=== PATIENT | female | born 1980 | race Caucasian/White ===

== ENCOUNTER 2022-09-19 13:06 | Observation (INO) ==
--- NOTE | 2022-09-19 13:12 | Emergency Department Note ---
ED Provider Note History of Present Illness Chief Complaint: Dehydration Stated Complaint: NOT EATING OR DRINKING A LOT Time Seen by Provider: 09/19/22 13:10 This is a 41-year-old female with a history of anxiety and paranoia, currently i npatient psych at the [facility]. She was referred to the emergency department via EMS for rehydration. According to case management who spoke with the provider at the [facility], the patient has not been eating or drinking very much over the past 2 weeks. She has lost about 10 pounds within the past 2 weeks. In the room, the patient is stating that she is very thirsty and she is asking for bottled water to drink. She admits that she is very paranoid that there is rat poison in the water at the [facility]. She is asking staff to drink a little bit of her bottled water to convince herself that it is not poisoned. She admits to not eating or drinking very much recently. Review of systems is challenging to obtain due to patient's baseline mental status at this time. Per case management, the patient is currently a 201, voluntary admission at the [facility]. Home Medications Medication Instructions Recorded Confirmed Type acetaminophen 325 mg tablet 650 mg PO Q6 PRN Pain 09/08/22 09/19/22 History (Tylenol) albuterol sulfate 90 mcg/actuation 2 puff inhalation Q4H PRN 09/08/22 09/19/22 History aerosol inhaler Shortness Of Breath buspirone 5 mg tablet 5 mg PO TID 09/08/22 09/19/22 History epinephrine 0.3 mg/0.3 mL 0.3 ml IM BID PRN severe food egg 09/08/22 09/19/22 History injection, auto-injector allergy food supplemt, lactose-reduced 1 ea PO TID 09/08/22 09/19/22 History (Ensure oral liquid) montelukast 10 mg tablet 10 mg PO HS 09/08/22 09/19/22 History sennosides 8.6 mg tablet (senna) 8.6 mg PO HS PRN Constipation 09/08/22 09/19/22 History tiotropium bromide 1.25 1.25 mcg inhalation DAILY 09/08/22 09/19/22 History mcg/actuation mist for inhalation (Spiriva Respimat) trazodone 50 mg tablet 50 mg PO HS 09/08/22 09/19/22 History venlafaxine 75 mg capsule,extended 75 mg PO QAM 09/08/22 09/19/22 History release 24 hr zinc oxide 20 % topical ointment 1 applic topical BID 09/19/22 09/19/22 History Allergies Allergy/AdvReac Type Severity Reaction Status Date / Time bee venom protein (honey bee) Allergy Severe SEVERE Verified 09/19/22 15:50 SWELLING AT [place] egg Allergy Severe Anaphylaxis Verified 09/19/22 15:50 methylprednisolone Allergy Unknown HIVES Verified 09/19/22 15:50 WHILE TAKING MEDROL DOSE PACK & ?? INHALER Past Med/Surg History Medical History (Updated 09/19/22 @ 23:58 by JESSICA Hurtado) Anxiety Depression Migraines Mild intermittent asthma Paranoia PCOS (polycystic ovarian syndrome) Surgical History No pertinent past surgical history Family History Mother Breast cancer Lung cancer Father Colorectal cancer Social History Smoking Status: Never smoker Do You Dip or Chew Tobacco: No; Hx Alcohol Use: No Hx Substance Use: No Preferred Language: Faroese Communication Ability: Effective Community Associate Required: No Beliefs That Will Affect Care: None Current Living Situation: Other Current Living Situation Comment: [place] Feels Safe at Home: No Is there a partner from a previous relationship who is making you feel unsafe now?: No Any Concerns about Your Family Situation: No Would You Like to Speak to Someone About Your Situation: No Safety Concerns: Afraid for Self Assistive Devices: None Physical Exam Vital Signs Vital Signs - 24 hr 09/19/22 13:20 09/19/22 13:25 09/19/22 16:22 Pulse Rate 101 H Pulse Rate [Finger] 103 H Respiratory Rate 20 20 Respiratory Effort / Characteristics Non-Labored Non-Labored Respiratory Depth Normal Normal Respiratory Pattern Regular Blood Pressure 114/85 Blood Pressure [Right Arm] 121/80 Blood Pressure Mean 94 Blood Pressure Mean [Right Arm] 93 Blood Pressure Position Sitting Pulse Oximetry 99 100 Oxygen Delivery Method Room Air Room Air Sepsis Recent Fever Within 48 Hours No Sepsis New/Unexplained Change in Mental Status N/A Sepsis Action Taken by Nursing No Action Required CONSTITUTIONAL: Well developed, well nourished, in mild distress, concerned about being poisoned HEAD: Normocephalic, atraumatic. EYES: conjunctivae normal, extraocular muscles intact. No scleral icterus ENMT: External ears normal. Nose with normal external appearance, no congestion. Oral mucous membranes dry. Oropharynx otherwise normal. NECK: Full active range of motion. LYMPHATIC: No cervical adenopathy RESPIRATORY: Breathing unlabored and symmetric. Lungs clear to auscultation bilaterally. No wheeze, rales, or rhonchi. CARDIOVASCULAR: Regular rate and rhythm. No murmurs, rubs, or gallops. ABDOMEN: Normal bowel sounds. Soft, nontender, no peritonitis. No masses. No CVA tenderness bilaterally. MUSCULOSKELETAL: Moves all extremities at all joints without pain or difficulty. No cyanosis or edema. Back with full range of motion. SKIN: [place], warm, dry. No obvious rash NEUROLOGIC: Awake, alert, oriented. Gaze is conjugate. Face symmetric, speech normal. Moves head and all four extremities spontaneously. Sensation and strength grossly intact. PSYCHIATRIC: Paranoid and delusional Course Consultations Consultation #1: I spoke with MANOLO Romero at the [facility] psych who is very familiar with the patient. She is currently coordinating with Dr. Johnson psychiatrist related to her care. Essentially the patient was sent to the emergency department for IV fluid rehydration as they do not have those capabilities. They have obtained labs on her and her symptoms are consistent with what brought her to inpatient psych in the first place. They are not concerned about this being medical related. She explained that if the patient demonstrates ongoing inability to care for herself/properly hydrate or nourish herself, she will be committed by Dr. Johnson. Administered Medications Buspirone HCl (Buspirone 5 Mg Tab) 5 mg PO TID [facility] Stop: 10/19/22 20:59 Last Admin: 09/19/22 21:07 Dose: 5 mg Documented By: GCB Potassium Chloride/Sodium Chloride (1/2 Nss + 20meq Kcl 1000ml) 20 meq in 1,000 mls @ 100 mls/hr IV .Q10H ONE; Protocol Stop: 09/20/22 05:29 Last Admin: 09/19/22 19:53 Dose: 100 mls/hr Documented By: ERIK Montelukast Sodium (Montelukast Sodium 10 Mg Tablet) 10 mg PO HS MARCIO Stop: 10/19/22 20:59 Last Admin: 09/19/22 21:07 Dose: 10 mg Documented By: GCTayler Discontinued Medications Albuterol (Albut/Ipratrop 3mg/0.5mg Neb 3 Ml Vial) 3 ml NEB Q4R PRN; Protocol PRN Reason: Shortness Of Breath Stop: 10/19/22 18:59 Last Admin: 09/19/22 20:23 Dose: 3 ml Documented By: ALLISON Sodium Chloride (Nss 1000ml) 1,000 mls @ 999 mls/hr IV .Q1H1M ONE Stop: 09/19/22 14:24 Last Infusion: 09/19/22 14:30 Dose: 0 mls/hr Documented By: Admin: 09/19/22 13:30 Dose: 999 mls/hr Documented By: HALLEY Sodium Chloride (Nss 1000ml) 1,000 mls @ 999 mls/hr IV .Q1H1M ONE Stop: 09/19/22 15:16 Last Infusion: 09/19/22 16:37 Dose: 0 mls/hr Documented By: Admin: 09/19/22 14:30 Dose: 999 mls/hr Documented By: HALLEY Potassium Chloride (K Shant / Wtr) 10 meq in 100 mls @ 100 mls/hr IV Q1H MARCIO; Protocol Stop: 09/19/22 16:59 Last Infusion: 09/19/22 17:50 Dose: 0 mls/hr Documented By: Admin: 09/19/22 16:37 Dose: 100 mls/hr Documented By: Infusion: 09/19/22 16:27 Dose: 100 mls/hr Documented By: Admin: 09/19/22 15:27 Dose: 100 mls/hr Documented By: MARI Potassium Chloride 20 meq/ (Dextrose) 1,010 mls @ 80 mls/hr IV .[id number] MARCIO Stop: 10/19/22 16:59 Last Infusion: 09/19/22 19:53 Dose: 0 mls/hr Documented By: Admin: 09/19/22 17:31 Dose: 80 mls/hr Documented By: AY Lorazepam (Lorazepam 2 Mg/1 Ml Vial) 1 mg IV NOW STA Stop: 09/19/22 15:00 Last Admin: 09/19/22 15:26 Dose: 1 mg Documented By: MARI Lorazepam (Lorazepam 2 Mg/1 Ml Vial) 1 mg IV PRN ONE Stop: 09/19/22 15:01 Last Admin: 09/19/22 17:31 Dose: Not Given Documented By: MARI Ondansetron HCl (Ondansetron Inj 2 Mg/Ml 2 Ml Vial) 4 mg IV NOW STA Stop: 09/19/22 13:39 Last Admin: 09/19/22 14:26 Dose: 4 mg Documented By: HALLEY Potassium Chloride (Potassium Chloride Crtab 20 Meq Tabcr) 40 meq PO NOW STA Stop: 09/19/22 16:42 Last Admin: 09/19/22 17:31 Dose: 40 meq Documented By: MARI Potassium Chloride (Potassium Chloride Pwd 20 Meq Pack) 40 meq PO NOW STA Stop: 09/19/22 19:33 Last Admin: 09/19/22 19:54 Dose: 40 meq Documented By: YAYOB Medical Decision Making Differential Diagnosis Paranoia, anxiety, delusional, gastroenteritis, gastroparesis, cholecystitis, cholelithiasis, choledocholithiasis, electrolyte imbalance, dehydration, UTI, malnutrition, anemia, GERD, pancreatitis, cardiac ischemia, among other p athology Medical Records Attestation: I reviewed the patient's medical records. (Patient seen in this emergency department on 09/08/2022 for some diffuse lower abdominal pain and nausea after eating. CT abdomen and pelvis was nondiagnostic at that time.) Laboratory Data 09/19/22 13:31 09/19/22 13:31 Lab Results 09/19/22 09/19/22 09/19/22 Range/Units : 13: 13:31 WBC 10.81 H (4.8-10.8) K/ul RBC 5.92 H (4.20-5.40) M/uL Hgb 17.6 H (12.0-16.0) g/dl Hct 52.2 H (37.0-47.0) % MCV 88.2 (80.0-100.0) fL MCH 29.7 (25.0-34.0) pg MCHC 33.7 (32.0-36.0) g/dL RDW Std Deviation 47.4 H (36.4-46.3) fL RDW Coeff of Vaughn 14.7 H (11.5-14.5) % Plt Count 303 (130-400) K/uL MPV 12.0 (9.4-12.4) fL Immature Gran % (Auto) 0.2 % Neut % (Auto) 80.4 % Lymph % (Auto) 10.3 % [place] % (Auto) 8.2 % Eos % (Auto) 0.2 % Baso % (Auto) 0.7 % Neut # (Auto) 8.69 H (1.40-6.50) K/uL Lymph # (Auto) 1.11 L (1.2-3.4) K/uL [place] # (Auto) 0.89 H (0.11-0.59) K/uL Eos # (Auto) 0.02 (0-0.50) K/uL Baso # (Auto) 0.08 (0-0.2) K/uL Immature Gran # (Auto) 0.02 (0.01-0.20) K/uL Sodium 149 H (136-145) mmol/L Potassium 2.7 L (3.5-5.1) mmol/L Chloride 110 H (98-107) mmol/L Carbon Dioxide 20 L (21-32) mmol/L Anion Gap 19 H (3-11) BUN 27 H (6-23) mg/dl Creatinine 0.84 (0.6-1.2) mg/dl Est Cr Clr Drug Dosing 77.2 ml/min Est GFR ( Amer) 100.1 ml/min Est GFR (Non-Af Amer) 86.3 ml/min BUN/Creatinine Ratio 32.1 H (10-20) Glucose 103 H (70-99(Fasting)) mg/dl Calcium 10.6 H (8.5-10.1) mg/dl Phosphorus 2.3 L (2.5-4.9) mg/dl Magnesium 2.1 (1.7-2.4) mg/dl Total Bilirubin 1.3 H (0.2-1.0) mg/dl AST 18 (13-39) U/L ALT 18 (7-52) U/L Alkaline Phosphatase 65 (34-104) U/L Troponin I High Sens 3.7 (0-14) pg/ml Total Protein 9.7 H (6.0-8.3) gm/dl Albumin 4.9 (3.4-5.0) gm/dl Globulin 4.8 H (2.5-4.0) gm/dl Albumin/Globulin Ratio 1.0 (0.9-2) Lipase 102 H (11-82) U/L Urine Color Urine Appearance (Clear) Urine pH (4.5-7.5) Ur Specific [place] (1.000-1.030) Urine Protein (Negative) Urine Glucose (UA) (Negative) Urine Ketones (Negative) Urine Blood (Negative) Urine Nitrite (Negative) Urine Bilirubin (Negative) Urine Urobilinogen (Negative) Ur Leukocyte Esterase (Negative) Urine WBC (Auto) (0-5) /hpf Urine RBC (Auto) (0-4) /hpf U Hyaline Cast (Auto) (0-5) /lpf U Epithel Cells (Auto) (0-5) /lpf Urine Bacteria (Auto) (Negative) Ur Renal Epithelial Cell Urine Crystals Calcium Oxalate Crystal (None Prsent) Urine Mucus (None Prsent) SARS-CoV-2, RNA, NAAT (NEGATIVE) 09/19/22 09/19/22 Range/Units 14:03 16:27 WBC (4.8-10.8) K/ul RBC (4.20-5.40) M/uL Hgb (12.0-16.0) g/dl Hct (37.0-47.0) % MCV (80.0-100.0) fL MCH (25.0-34.0) pg MCHC (32.0-36.0) g/dL RDW Std Deviation (36.4-46.3) fL RDW Coeff of Vaughn (11.5-14.5) % Plt Count (130-400) K/uL MPV (9.4-12.4) fL Immature Gran % (Auto) % Neut % (Auto) % Lymph % (Auto) % [place] % (Auto) % Eos % (Auto) % Baso % (Auto) % Neut # (Auto) (1.40-6.50) K/uL Lymph # (Auto) (1.2-3.4) K/uL [place] # (Auto) (0.11-0.59) K/uL Eos # (Auto) (0-0.50) K/uL Baso # (Auto) (0-0.2) K/uL Immature Gran # (Auto) (0.01-0.20) K/uL Sodium (136-145) mmol/L Potassium (3.5-5.1) mmol/L Chloride (98-107) mmol/L Carbon Dioxide (21-32) mmol/L Anion Gap (3-11) BUN (6-23) mg/dl Creatinine (0.6-1.2) mg/dl Est Cr Clr Drug Dosing ml/min Est GFR ( Amer) ml/min Est GFR (Non-Af Amer) ml/min BUN/Creatinine Ratio (10-20) Glucose (70-99(Fasting)) mg/dl Calcium (8.5-10.1) mg/dl Phosphorus (2.5-4.9) mg/dl Magnesium (1.7-2.4) mg/dl Total Bilirubin (0.2-1.0) mg/dl AST (13-39) U/L ALT (7-52) U/L Alkaline Phosphatase (34-104) U/L Troponin I High Sens (0-14) pg/ml Total Protein (6.0-8.3) gm/dl Albumin (3.4-5.0) gm/dl Globulin (2.5-4.0) gm/dl Albumin/Globulin Ratio (0.9-2) Lipase (11-82) U/L Urine Color Dark Yellow Urine Appearance Cloudy A (Clear) Urine pH 5.5 (4.5-7.5) Ur Specific [place] 1.033 H (1.000-1.030) Urine Protein 2+ H (Negative) Urine Glucose (UA) Negative (Negative) Urine Ketones 4+ H (Negative) Urine Blood Negative (Negative) Urine Nitrite Positive A (Negative) Urine Bilirubin 2+ H (Negative) Urine Urobilinogen Negative (Negative) Ur Leukocyte Esterase Trace H (Negative) Urine WBC (Auto) 10-30 H (0-5) /hpf Urine RBC (Auto) 0-4 (0-4) /hpf U Hyaline Cast (Auto) 1-5 (0-5) /lpf U Epithel Cells (Auto) >30 H (0-5) /lpf Urine Bacteria (Auto) 1+ H (Negative) Ur Renal Epithelial Cell Not Reportable Urine Crystals Not Reportable Calcium Oxalate Crystal Present A (None Prsent) Urine Mucus Present A (None Prsent) SARS-CoV-2, RNA, NAAT NEGATIVE (NEGATIVE) ECG Data Attestation: I personally reviewed and interpreted this ECG as follows: (Sinus rhythm with a rate of 70. Intervals within normal limits. No acute ST elevation or evidence of ischemia.) MDM Narrative 41-year-old female was referred to the emergency department from the [facility] facility for rehydration secondary to not eating or drinking much over the past few weeks. Patient is reportedly paranoid that she is being poisoned by the water at that facility, and she allegedly gags and feels nauseous when she tries to eat. On initial evaluation, the patient is in mild distress, very anxious and paranoid concerned that the water at the hospital is paranoid though she admits she is very thirsty. She does drink some bottled water after asking staff to confirm it is not poisoned by drinking it themselves. She does not gag or vomit after drinking water. Her abdominal exam is reassuring. Oral mucous membranes are dry, she does appear to be dehydrated. I discussed the referral with Anjelica, case loader operator. I also spoke with Nick FRENCH at inpatient psych at the [facility] as described above in the consultation section. Essentially the patient was sent to the emergency department for IV fluid rehydration, they do not think this is medical, and this has been ongoing. If the patient continues to demonstrate inability to properly hydrate or nourish herself, she will be committed by the psychiatrist at the [facility]. Patient was agreeable with an IV and she received 2 L IV fluids initially. Her labs demonstrate a mild leukocytosis at 10.8, evidence of hemoconcentration with a hemoglobin of 17.6 compared from 13.1 on 09/08. She is hyponatremic at 149, hypokalemic at 2.7. Initially administered a total of 20 mEq IV potassium. No cardiac arrhythmias appreciated on ECG. Magnesium normal 2.1. Urine with evidence of contamination and infection, this was identified after the patient had been admitted. Hospitalist group aware. No evidence of acute kidney injury. Anion gap elevated at 19. Case was discussed with ED attending Dr. Velasquez. We felt that admission to the hospital was prudent given her multiple electrolyte abnormalities and starvation ketosis state, especially with her reluctance to take p.o. at the [place]. Case was discussed with the [facility] Hospitalist team who agrees to admit the patient for further management. Impression Hypernatremia, Hypokalemia, Paranoia, Starvation ketoacidosis, Dehydration Discharge Plan Visit Data Chief Complaint: Dehydration Stated Complaint: NOT EATING OR DRINKING A LOT ED Provider: Bashir Velasquez ED Midlevel Provider: Anand Graham Discharge Problem: Hypernatremia, Hypokalemia, Paranoia, Starvation ketoacidosis, Dehydration Patient Disposition: Admitted As Inpatient Discharge Instructions Interventions: ED Discharge Assessment Last Done: 09/19/22 18:25
[2022-09-19] MEDS ORDERED: SODIUM CHLORIDE 0.9% 1000ML 1,000 ML IV ONE ×2 (13:24→14:16)
[2022-09-19] MEDS ORDERED: ONDANSETRON INJ 2 MG/ML 2 ML VIAL IV STA (13:38)
[2022-09-19 13:48] LABS: Basophils # (auto) 0.08 K/uL (0-0.2); Basophils % (auto) 0.7 %; Eosinophils # (auto) 0.02 K/uL (0-0.50); Eosinophils % (auto) 0.2 %; Hematocrit (blood only) 52.2 % (37.0-47.0); Hemoglobin 17.6 g/dl (12.0-16.0); Immature Granulocytes # (auto) 0.02 K/uL (0.01-0.20); Immature Granulocytes % (auto) 0.2 %; Lymphocytes # (auto) 1.11 K/uL (1.2-3.4); Lymphocytes % (auto) 10.3 %; Mean Corpuscular Hemoglobin 29.7 pg (25.0-34.0); Mean Corpuscular Hgb Conc 33.7 g/dL (32.0-36.0); Mean Corpuscular Volume 88.2 fL (80.0-100.0); Monocytes # (auto) 0.89 K/uL (0.11-0.59); Monocytes % (auto) 8.2 %; Neutrophils # (auto) 8.69 K/uL (1.40-6.50); Neutrophils % (auto) 80.4 %; Platelet Count 303 K/uL (130-400); RDW Coefficient of Variation 14.7 % (11.5-14.5); RDW Standard Deviation 47.4 fL (36.4-46.3); Red Blood Count 5.92 M/uL (4.20-5.40); White Blood Count 10.81 K/ul (4.8-10.8)
[2022-09-19 14:14] LABS: Troponin I High Sensitivity 3.7 pg/ml (0-14)
[2022-09-19 14:41] LABS: Albumin Level 4.9 gm/dl (3.4-5.0); Bilirubin,Total 1.3 mg/dl (0.2-1.0); Calcium 10.6 mg/dl (8.5-10.1); Potassium 2.7 mmol/L (3.5-5.1)
[2022-09-19 14:47] LABS: BUN Creatinine Ratio 32.1 (10-20); Creatinine Clr Calc Pharmacy 77.2 ml/min; Est GFR (African American) 100.1 ml/min; Est GFR (Non-African American) 86.3 ml/min; Globulin 4.8 gm/dl (2.5-4.0); Total Protein 9.7 gm/dl (6.0-8.3)
[2022-09-19] MEDS ORDERED: LORazepam 2 MG/1 ML VIAL IV STA (14:59)
[2022-09-19] MEDS ORDERED: LORazepam 2 MG/1 ML VIAL IV ONE (15:00)
[2022-09-19] MEDS: POTASSIUM CHLORIDE / WTR 10 MEQ/100 ML PLCT IV SCH ×2 (15:27→16:37)
--- NOTE | 2022-09-19 15:46 | History & Physical Report ---
Date of Service September 19, 2022 Assessment & Plan (1) Starvation ketoacidosis: Plan: This is a 41 y/o female with a PMH of PCOS, asthma, IBS, depression, anxiety, and recent paranoia who presented to the ED from [place] with dehydration and electrolyte abnormalities related to refusal to eat or drink water due to underlying paranoia that someone is trying to poison her ([facility] staff, her family). Per outpatient records, hx of anxiety and depression but no documentation of prior psychosis until recent symptoms, which seemed to start after COVID in May. - Admit to med surg for IV hydration and correction of electrolytes - IVF with D5 with 20 mEq KCl/bag at 80 cc/hr - Oral KCl ordered to help supplement for hypokalemia - Encourage oral intake as able - full liquid diet, add nutritional supplement such as Boost per performance improvement specialist recs - Check Phos this afternoon, mag pending - Labs in AM including BMP, Mg, Phos, B12, folic acid, and vit D level - Abnormal UA but no significant symptoms - wait on culture - Consult psychiatry while admitted - pt unhappy at [place] and wants another opinion on her condition and medications (2) Hypernatremia: (3) Hypokalemia: (4) Paranoia: Plan Pt seen and evaluated with attending physician, Dr. Berger. Plan of care discussed and as outlined above. Code Status: Full Code DVT Prophylaxis: pt ambulatory at present, if not being discharged tomorrow, consider adding Lovenox Delfin Heath PA-C History of Present Illness Chief Complaint: Dehydration Primary Care Provider: Mela Dawkins This is a 41 y/o female with a PMH of asthma, PCOS, migraines, anxiety, depression, and recent paranoia who presents to the ED today from [place], where she is currently inpatient due to acute paranoia, for dehydration. History obtained from the patient but also from her medical records from [facility] and from [place] as it is unclear how reliable pt is as a historian. Per the notes, she presented to the ED on 09/05/22, brought by her aunt, with paranoia and abdominal pain. Per patient, she has been having ongoing issues with lower abdominal pain and getting short of breath with eating for the last few months. Symptoms seemed to start after having COVID in May. Pt reports that work-up at other facilities has been negative. She feels like she will get flushed, short of breath, and sometimes will have palpitations when she eats, particularly solid foods. Initially, she reports that she was tolerating liquids, including Ensure, but that her symptoms worsened which was why her aunt brought her to the ER. She is also concerned that the staff at [facility] are trying to poison her so she has been refusing to eat for the last several days. In the ED, she expressed similar concerns and has been extremely hesitant to even drink the bottled water provided by the ED staff. She repeated asked us if her water was safe to drink or if it was poison. Per [place], pt has been intermittently taking her medications, may refuse to take specific ones. Pt reports that she does not think that she needs the Effexor so she often isn't taking. She is willing to consider the BuSpar. It appears that the Risperdal was discontinued a few days ago. She also does not think that she needs the trazodone as she thinks she is sleeping fine. She reports that she has asked for a liquid diet repeatedly at [facility] but keeps getting regular food "like cheeseburgers" which don't agree with her. Records from [place] reveal that she has been ordered a regular diet as well as the specific foods like pudding and applesauce that she has been asking for but notes that she continues to refuse oral intake. She is currently admitted on a 201 but the psychiatric provider stated that a 302 may need to be filed if she continues to refuse nutrition and hydration. Pt specifically denies suicidal ideations, homicidal ideations, or intent of self-harm. Her urine in the ED was noted to have +nitrites, ketones, trace leuks. Pt was apparently recently treated for a UTI but she is unsure with what. She states that her urine has been strong but she denies urinary frequency, hematuria, or dysuria. She reports no recent BM but is passing gas. Stomach feels "quivery" at times. Allergies Allergy/AdvReac Type Severity Reaction Status Date / Time bee venom protein (honey bee) Allergy Severe SEVERE Verified 09/19/22 15:50 SWELLING AT [place] egg Allergy Severe Anaphylaxis Verified 09/19/22 15:50 methylprednisolone Allergy Unknown HIVES Verified 09/19/22 15:50 WHILE TAKING MEDROL DOSE PACK & ?? INHALER Home Medications Medication Instructions Recorded Confirmed Type acetaminophen 325 mg tablet 650 mg PO Q6 PRN Pain 09/08/22 09/19/22 History (Tylenol) albuterol sulfate 90 mcg/actuation 2 puff inhalation Q4H PRN 09/08/22 09/19/22 History aerosol inhaler Shortness Of Breath buspirone 5 mg tablet 5 mg PO TID 09/08/22 09/19/22 History epinephrine 0.3 mg/0.3 mL 0.3 ml IM BID PRN severe food egg 09/08/22 09/19/22 History injection, auto-injector allergy food supplemt, lactose-reduced 1 ea PO TID 09/08/22 09/19/22 History (Ensure oral liquid) montelukast 10 mg tablet 10 mg PO HS 09/08/22 09/19/22 History sennosides 8.6 mg tablet (senna) 8.6 mg PO HS PRN Constipation 09/08/22 09/19/22 History tiotropium bromide 1.25 1.25 mcg inhalation DAILY 09/08/22 09/19/22 History mcg/actuation mist for inhalation (Spiriva Respimat) trazodone 50 mg tablet 50 mg PO HS 09/08/22 09/19/22 History venlafaxine 75 mg capsule,extended 75 mg PO QAM 09/08/22 09/19/22 History release 24 hr zinc oxide 20 % topical ointment 1 applic topical BID 09/19/22 09/19/22 History Past Med/Surg History Medical History Anxiety Depression Migraines Mild intermittent asthma Paranoia PCOS (polycystic ovarian syndrome) Surgical History No pertinent past surgical history Family History Mother Breast cancer Lung cancer Father Colorectal cancer Social History Smoking Status: Never smoker Do You Dip or Chew Tobacco: No; Hx Alcohol Use: No Hx Substance Use: No Preferred Language: Singaporean Communication Ability: Effective Tube Fitter Required: No Beliefs That Will Affect Care: None Current Living Situation: Other Current Living Situation Comment: [place] Feels Safe at Home: No Is there a partner from a previous relationship who is making you feel unsafe now?: No Any Concerns about Your Family Situation: No Would You Like to Speak to Someone About Your Situation: No Safety Concerns: Afraid for Self Assistive Devices: None Review of Systems Review of Systems: Limited due to mental health condition - see HPI Physical Exam Constitutional: well developed and well nourished; no acute distress Eyes: + anicteric sclerae ENMT: dry oral mucosa Neck: trachea midline Respiratory: no respiratory distress and no labored breathing Auscultation: lungs clear to auscultation bilaterally; no rales, no rhonchi and no wheezes Cardiovascular: Rate/Rhythm: regular rhythm and + tachycardic Vessels: radial pulses present Extremities: normal capillary refill; no pedal edema Gastrointestinal (Abdomen): Inspection/Auscultation: normal bowel sounds; abdomen not distended Percussion/Palpation: abdomen soft; abdomen nontender Musculoskeletal: Head/Neck/Chest: normocephalic, head atraumatic and neck supple Skin: no jaundice No decreased skin turgor Neurologic: moves all extremities; no focal motor deficits Psychiatric: Orientation: alert and oriented x 3 Eye Contact: + fair eye contact Motor Behavior: no abnormal motor movements Affect: + anxious affect Mood: + anxious mood Thought Process: + perseveration Thought Content: + paranoid Results & Data Results & Data ([facility]) Vital Signs (Past 12 Hours) Vital Signs Pulse Resp BP Pulse Ox O2 Del Method 09/19/22 13:25 Room Air 09/19/22 13:20 101 H 20 114/85 99 Room Air Laboratory Results Laboratory Results - last 24 hr 09/19/22 09/19/22 09/19/22 13:31 13:31 13:31 WBC 10.81 H RBC 5.92 H Hgb 17.6 H Hct 52.2 H MCV 88.2 MCH 29.7 MCHC 33.7 RDW Std Deviation 47.4 H RDW Coeff of Vaughn 14.7 H Plt Count 303 MPV 12.0 Immature Gran % (Auto) 0.2 Neut % (Auto) 80.4 Lymph % (Auto) 10.3 Kay % (Auto) 8.2 Eos % (Auto) 0.2 Baso % (Auto) 0.7 Neut # (Auto) 8.69 H Lymph # (Auto) 1.11 L Kay # (Auto) 0.89 H Eos # (Auto) 0.02 Baso # (Auto) 0.08 Immature Gran # (Auto) 0.02 Sodium 149 H Potassium 2.7 L Chloride 110 H Carbon Dioxide 20 L Anion Gap 19 H BUN 27 H Creatinine 0.84 Est Cr Clr Drug Dosing 77.2 Est GFR ( Amer) 100.1 Est GFR (Non-Af Amer) 86.3 BUN/Creatinine Ratio 32.1 H Glucose 103 H Calcium 10.6 H Magnesium Pending Total Bilirubin 1.3 H AST 18 ALT 18 Alkaline Phosphatase 65 Troponin I High Sens 3.7 Total Protein 9.7 H Albumin 4.9 Globulin 4.8 H Albumin/Globulin Ratio 1.0 Lipase 102 H Urine Color Urine Appearance Urine pH Ur Specific [place] Urine Protein Urine Glucose (UA) Urine Ketones Urine Blood Urine Nitrite Urine Bilirubin Urine Urobilinogen Ur Leukocyte Esterase 09/19/22 14:03 WBC RBC Hgb Hct MCV MCH MCHC RDW Std Deviation RDW Coeff of Vaughn Plt Count MPV Immature Gran % (Auto) Neut % (Auto) Lymph % (Auto) Kay % (Auto) Eos % (Auto) Baso % (Auto) Neut # (Auto) Lymph # (Auto) Kay # (Auto) Eos # (Auto) Baso # (Auto) Immature Gran # (Auto) Sodium Potassium Chloride Carbon Dioxide Anion Gap BUN Creatinine Est Cr Clr Drug Dosing Est GFR ( Amer) Est GFR (Non-Af Amer) BUN/Creatinine Ratio Glucose Calcium Magnesium Total Bilirubin AST ALT Alkaline Phosphatase Troponin I High Sens Total Protein Albumin Globulin Albumin/Globulin Ratio Lipase Urine Color Pending Urine Appearance Pending Urine pH Pending Ur Specific [place] Pending Urine Protein Pending Urine Glucose (UA) Pending Urine Ketones Pending Urine Blood Pending Urine Nitrite Pending Urine Bilirubin Pending Urine Urobilinogen Pending Ur Leukocyte Esterase Pending Medications Administered Potassium Chloride (K Shant / Wtr) 10 meq in 100 mls @ 100 mls/hr IV Q1H MARCIO; Protocol Stop: 09/19/22 16:59 Last Admin: 09/19/22 15:27 Dose: 100 mls/hr Documented By: AY Discontinued Medications Sodium Chloride (Nss 1000ml) 1,000 mls @ 999 mls/hr IV .Q1H1M ONE Stop: 09/19/22 14:24 Last Infusion: 09/19/22 14:30 Dose: 0 mls/hr Documented By: Admin: 09/19/22 13:30 Dose: 999 mls/hr Documented By: HALLEY Sodium Chloride (Nss 1000ml) 1,000 mls @ 999 mls/hr IV .Q1H1M ONE Stop: 09/19/22 15:16 Last Admin: 09/19/22 14:30 Dose: 999 mls/hr Documented By: HALLEY Lorazepam (Lorazepam 2 Mg/1 Ml Vial) 1 mg IV NOW STA Stop: 09/19/22 15:00 Last Admin: 09/19/22 15:26 Dose: 1 mg Documented By: MARI Ondansetron HCl (Ondansetron Inj 2 Mg/Ml 2 Ml Vial) 4 mg IV NOW STA Stop: 09/19/22 13:39 Last Admin: 09/19/22 14:26 Dose: 4 mg Documented By: HALLEY Supervising Physician Co-Signing Physician Notes Patient seen and examined independently. Discussed with Peggy Heath PA-C Patient presents from [facility] with paranoia, hyponatremia, starvation ketosis and hypokalemia. Started supportive care with D5 with potassium supplement. Initiate full liquid diet as patient is agreeable to that. Monitor BMP tomorrow AM.
[2022-09-19 15:47] LABS: Appearance Urine Cloudy (Clear); Blood Urine Negative (Negative); Color Urine Dark Yellow; Epithelial Cell Urine Auto >30 /lpf (0-5); Glucose Urine UA Negative (Negative); Ketones Urine 4+ (Negative); Leukocyte Esterase Urine Trace (Negative); Nitrite Urine Positive (Negative); Protein Urine 2+ (Negative); Specific Gravity Urine 1.033 (1.000-1.030); Urobilinogen Urine Negative (Negative); pH Urine 5.5 (4.5-7.5)
[2022-09-19 15:48] LABS: Magnesium 2.1 mg/dl (1.7-2.4)
[2022-09-19 15:49] LABS: Bilirubin Urine 2+ (Negative)
[2022-09-19 16:09] LABS: Calcium Oxalate Crystals Urine Present (None Prsent); Mucus Urine Present (None Prsent); RBC Urine Automated 0-4 /hpf (0-4)
[2022-09-19 16:10] LABS: Bacteria Urine Automated 1+ (Negative)
[2022-09-19] MEDS ORDERED: POTASSIUM CHLORIDE CRTAB 20 MEQ TABCR PO STA (16:41)
[2022-09-19] MEDS ORDERED: POTASSIUM CHLORIDE 20 MEQ in DEXTROSE 5% 1,000 ML IV SCH (17:00)
[2022-09-19 17:21] LABS: Phosphorus 2.3 mg/dl (2.5-4.9)
[2022-09-19] MEDS ORDERED: ALBUT/IPRATROP 3MG/0.5MG NEB 3 ML VIAL NEB PRN (19:00)
[2022-09-19] MEDS ORDERED: SODIUM CHLOR 0.45% + 20MEQ KCL 20 MEQ/1,000 ML BAG IV ONE (19:30)
[2022-09-19] MEDS ORDERED: POTASSIUM CHLORIDE PWD 20 MEQ PACK PO STA (19:32)
[2022-09-19 20:21] LABS: Base Excess VBG -0.8 mEq/L; HCO3 VBG 24 mmol/L; Oxygen Saturation VBG < 60.0 %; PCO2 VBG 37 mmHg (38-50); PO2 VBG 12 mmHg; pH VBG 7.41 (7.36-7.41)
[2022-09-19 20:51] LABS: BUN Creatinine Ratio 31.7 (10-20); Calcium 8.7 mg/dl (8.5-10.1); Est GFR (African American) 129.1 ml/min; Est GFR (Non-African American) 111.4 ml/min; Potassium 3.5 mmol/L (3.5-5.1)
[2022-09-19] MEDS ORDERED: traZODone HCL 50 MG TAB PO SCH (21:00)
[2022-09-19] MEDS: MONTELUKAST SODIUM 10 MG TABLET PO SCH (21:07)
[2022-09-19] MEDS: busPIRone 5 MG TAB PO SCH (21:07)
[2022-09-20] MEDS ORDERED: Flu Vaccine (Flucelvax) 0.5mL SYR **Egg-Free IM ONE (03:15)
[2022-09-20] MEDS: LEVALBUTEROL TARTRATE 15 GM HFA.AER.AD INH PRN ×4 (07:46→19:25)
[2022-09-20 08:15] LABS: Calcium 8.4 mg/dl (8.5-10.1); Creatinine Clr Calc Pharmacy 122.4 ml/min; Est GFR (African American) 136.7 ml/min; Est GFR (Non-African American) 117.9 ml/min; Magnesium 1.7 mg/dl (1.7-2.4); Phosphorus 3.4 mg/dl (2.5-4.9); Potassium 3.6 mmol/L (3.5-5.1)
[2022-09-20] MEDS: busPIRone 5 MG TAB PO SCH ×3 (08:37→20:23)
[2022-09-20] MEDS: UMECLIDINIUM BROMIDE 62.5MCG/BLISTER 7 PUFFS/INHALER INH SCH (08:37)
[2022-09-20 08:40] LABS: Vitamin B12 1117 pg/ml (180-914)
[2022-09-20 08:46] LABS: Vitamin D, 25 Hydrox < 7.0 ng/ml (30-100)
[2022-09-20] MEDS ORDERED: VENLAFAXINE HCL XR 75 MG CAPXR PO SCH (09:00)
--- NOTE | 2022-09-20 09:56 | Hospitalist Progress Note ---
Date of Service September 20, 2022 Assessment & Plan (1) Starvation ketoacidosis: Plan: This is a 41 y/o female with a PMH of PCOS, asthma, IBS, depression, anxiety, and recent paranoia who presented to the ED from [place] with dehydration and electrolyte abnormalities related to refusal to eat or drink water due to underlying paranoia that someone is trying to poison her ([facility] staff, her family). Per outpatient records, hx of anxiety and depression but no documentation of prior psychosis until recent symptoms, which seemed to start after COVID in May. Patient currently admitted to [facility] Electrolytes were replaced yesterday and she received IVF Dehydration was supported with evidence of polycythemia and hyponatremia. She also had profound hypokalemia Patient continues to have aversion to food and drinks due to paranoia for rat poison She states this started since being admitted to the [facility] September 07 Psych is consulted, will await their recommendation A.m. labs reviewed she was found to have significant elevation in B12 and significant vitamin D deficiency Vitamin D deficiency We will start 50,000 IUs of vitamin D2 weekly for 6 weeks then recommend 800 IUs daily thereafter Will need repeat vitamin D level in 3 months Elevated vitamin B12 Avoid further B12 supplementation Abnormal urinalysis Patient asymptomatic Await urine culture Electrolyte abnormality Patient with hyponatremia, hypokalemia, hypophosphatemia This has since resolved Dispo: admitted to med/surg, await psych eval, pt with significant paranoia over food/drink, plan to return to the [facility] FULL CODE A total of 50 minutes was spent with greater than 50% of that time personally viewing all current laboratory work and diagnostic imaging studies obtained in the ED. Additionally, I was able to view the patients past medication reconciliation and history with direct visualization in the patients chart. Included in the time above, a portion of that time was spent assessing the patient while discussing and collaborating with specialists, if necessary, and making medical decision making on treatment plan. All of the above was collaborated with Dr. Berger. Please see addendum for further details. (2) Hypernatremia: (3) Hypokalemia: (4) Paranoia: Admission and Anticipated Discharge Date Admission Date: September 19, 2022 Supervising Physician Co-Signing Physician Notes Patient seen and examined independently. Discussed with Kelly Zapsky PA-C. Patient is comfortably sitting up on the bed. She states he has been drinking more water and is trying to eat Jell-O as well. She denies any suicidal ideation. Hyponatremia and hypokalemia resolved. Vitamin D found to be low; supplementation is started. Will appreciate psychiatry input. Subjective Patient was seen and examined in room 384 -2. Follow-up paranoia with food electrolyte abnormalities. Patient is convinced that [employer] [place] orange juice is poisoned with rat poison. She is asking myself and staff to try before she does. She did try the once juice and now is highly concerned that she poisoned herself. She states she is unable to eat because it makes her sick due to all food being poisoned. Her paranoia with being poisoned and started September 07 however she was admitted to the [facility]. She states everything she eats that makes her sick and they are poisoning her. She does not want to go back there. She denies fever, chills, sweats, chest pain, shortness, abdominal pain, change in bowel or urinary habits. Review of Systems Review of Systems: All systems reviewed & are unremarkable except as noted in HPI & below Physical Exam Physical Exam: Gen: WD/WN, female, pleasant but paranoia,NAD, A&O x3 HEENT: Normocephalic, atraumatic, conjunctivae moist, sclerae anicteric, mucous membranes moist. Lung: Clear to Auscultation bilaterally, no wheezes/rales/rhonchi Heart: Regular rate, regular rhythm, no murmurs, rubs, or gallops Abdomen: Soft, NT, ND +BS x 4 Extremities: No edema Skin: Warm, no rash, negative turgor. Results & Data Results & Data ([facility]) Vital Signs (Past 12 Hours) Vital Signs Temp Pulse Pulse Resp BP Pulse Ox O2 Del Method 09/20/22 07:40 Room Air 09/20/22 07:35 36.4 C L 86 18 97/65 L 100 Room Air 09/20/22 07:48 83 18 100 Room Air 09/20/22 03:14 36.3 C L 82 18 106/73 100 Room Air Laboratory Results Short CBC 09/19/22 Range/Units 13:31 WBC 10.81 H (4.8-10.8) K/ul Hgb 17.6 H (12.0-16.0) g/dl Hct 52.2 H (37.0-47.0) % Plt Count 303 (130-400) K/uL BMP 09/19/22 09/19/22 09/20/22 13:31 20:06 07:24 Sodium 149 H 147 H 144 Potassium 2.7 L 3.5 D 3.6 Chloride 110 H 116 H 117 H Carbon Dioxide 20 L 24 20 L BUN 27 H 20 18 Creatinine 0.84 0.63 0.53 L Glucose 103 H 113 H 84 Calcium 10.6 H 8.7 8.4 L Liver Function 09/19/22 Range/Units 13:31 Total Bilirubin 1.3 H (0.2-1.0) mg/dl AST 18 (13-39) U/L ALT 18 (7-52) U/L Alkaline Phosphatase 65 (34-104) U/L Albumin 4.9 (3.4-5.0) gm/dl Urine 09/19/22 Range/Units 14:03 Urine Color Dark Yellow Urine Appearance Cloudy A (Clear) Urine pH 5.5 (4.5-7.5) Ur Specific [place] 1.033 H (1.000-1.030) Urine Protein 2+ H (Negative) Urine Glucose (UA) Negative (Negative) Medications Administered Current Inpatient Medications Buspirone HCl (Buspirone 5 Mg Tab) 5 mg PO TID MARCIO Stop: 10/19/22 20:59 Last Admin: 09/20/22 08:37 Dose: 5 mg Levalbuterol HCl (Levalbuterol Tartrate 15 Gm Hfa.Aer.Ad) 2 puffs INH Q4R PRN PRN Reason: sob/wheeze Stop: 10/19/22 20:42 Last Admin: 09/20/22 07:46 Dose: 2 puffs Montelukast Sodium (Montelukast Sodium 10 Mg Tablet) 10 mg PO HS MARCIO Stop: 10/19/22 20:59 Last Admin: 09/19/22 21:07 Dose: 10 mg Umeclidinium [place] (Umeclidinium [place] 62.5mcg/Blister 7 Puffs/Inhaler) 1 puffs INH DAILY MARCIO Stop: 10/20/22 08:59 Last Admin: 09/20/22 08:37 Dose: 1 puffs Venlafaxine HCl (Venlafaxine Hcl Xr 75 Mg Capxr) [facility] Stop: 10/20/22 08:59 Last Admin: 09/20/22 08:37 Dose: 75 mg
--- NOTE | 2022-09-20 12:28 | Psychiatric Consultation ---
Date of Consultation September 20, 2022 Impression / Recommendations Impression 41 y/o F whose anxieties about potential repeat exposure to SARS-CoV-2 have ballooned into abbey somatic delusions that have had a severe impact on her ability to function and on her health - she has a sacral ulcer from lying in excretions for extended periods, was dehydrated with electrolyte abnormalities, and was in starvation ketoacidosis on presentation. She has extremely poor insight. By history, there is no antecedent or precipitant identified other than her having contracted CoVID-19. SARS-CoV-2 is known to infect cerebral neurons, so in the absence of other plausible causes I presume that was the causative factor. That doesn't really help with identifying treatment. Delusional disorders are notoriously resistant to treatment, but antipsychotic medication would be the most likely to help. (1) Delusional disorder, somatic type: Present on Admission?: Yes Plan Recommend: * stop venlafaxine XR - dose is too low to be of benefit and pt has not been using it with any consistency. It could easily have GI side effects. * continue buspirone 5 mg PO TID, which is fairly likely to be a subtherapeutic dose but pt sees this med as important and not causing problems. * trial of risperidone "M-tab" (oral-dissolving form) 0.5 mg PO BID * avoid getting caught in constantly addressing pt's repetitive fears and delusional beliefs, since these are not things she can be "talked out of". * avoid the temptation to frighten pt into eating and drinking; she knows she needs to, and her not doing so is not due to a lack of information about the health consequences. * in general, clear, concise information presented once or twice would be appropriate, then for repetitive questions or concerns refer pt back to what she's already been told. Psych History Identifying Data DEBBY GUILLEN is a 41-year-old F with a history of no very clear psychiatric condition, admit on 09/19/2022 for dehydration. Consult is by the hospitalist service for "Paranoia, depression, from [facility]". Chief Complaint "[]". History of Present Illness 41 year-old woman dropped off in the ED from [facility] with dehydration, weight loss, and a pressure sore. Practically no records accompany her, so there are significant lacunae in our understanding of her history (the psychiatric liaison nurse is attempting to reach pt's aunt to see if we can learn more). Pt has been at [facility] since some time prior to 09/08/2022, when she was dropped off in the ED with complaints of feeling as if she had wheezing in her abdomen. As part of a thorough review of the available medical records, I have read and confirmed the following notes, relevant portions of which are excerpted below: ED physician note 09/08/2022: "The patient is a 41-year-old female who presents the emergency department with a chief complaint of lower abdominal pain when eating over about the past month. Patient [facility] from [facility], states she is originally from the [facility]. Patient states over the past month when she eats she feels like she is getting "wheezing in my abdomen". On arrival here to the ED the patient is hemodynamically stable, she is in no acute distress on my initial evaluation. Denies any recent vomiting." "CT imaging of the abdomen pelvis was obtained that does not show any evidence of acute surgical pathology. Lab work does not show any leukocytosis, hemoglobin is stable, no transaminitis is noted on the patient's lab work. Bilirubin is also within normal limits. Unclear source of the patient's symptoms at this time but imaging and lab work today are reassuring. I feel she is stable for outpatient management and discharged back to her inpatient psychiatric facility. Patient was in agreement to this plan. Prior to discharge patient noted that she had some "sores" on her buttocks. Examination was then performed with female RN at the bedside which did show some excoriation of the bilateral glutes which appear consistent with some irritation from bowel movements. Patient states that she is not getting out of bed much at her facility, she has been able to walk here in the ED so unclear why this is. I recommended that she utilize barrier cream to the area daily and make sure that she is offloading any pressure to the area and getting up and moving as much as possible at her facility." ED physician note 09/19/2022: "This is a 41-year-old female with a history of anxiety and paranoia, currently inpatient psych at the [facility]. She was referred to the emergency department via EMS for rehydration. According to case management who spoke with the provider at the [facility], the patient has not been eating or drinking very much over the past 2 weeks. She has lost about 10 pounds within the past 2 weeks. In the room, the patient is stating that she is very thirsty and she is asking for bottled water to drink. She admits that she is very paranoid that there is rat poison in the water at the [facility]. She is asking staff to drink a little bit of her bottled water to convince herself that it is not poisoned. She admits to not eating or drinking very much recently." "I spoke with MANOLO Romero at the [facility] inpatient [facility] who is very familiar with the patient. She is currently coordinating with Dr. Johnson [facility] related to her care. Essentially the patient was sent to the emergency department for IV fluid rehydration as they do not have those capabilities. They have obtained labs on her and her symptoms are consistent with what brought her to inpatient [facility] in the first place. They are not concerned about this being medical related. She explained that if the patient demonstrates ongoing inability to care for herself/properly hydrate or nourish herself, she will be committed by Dr. Johnson." "41-year-old female was referred to the emergency department from the [facility] facility for rehydration secondary to not eating or drinking much over the past few weeks. Patient is reportedly paranoid that she is being poisoned by the water at that facility, and she allegedly gags and feels nauseous when she tries to eat. On initial evaluation, the patient is in mild distress, very anxious and paranoid concerned that the water at the hospital is paranoid though she admits she is very thirsty. She does drink some bottled water after asking staff to confirm it is not poisoned by drinking it themselves. She does not gag or vomit after drinking water. Her abdominal exam is reassuring. Oral mucous membranes are dry, she does appear to be dehydrated. I discussed the referral with Anjelica rifle case repairer. I also spoke with Nick Banda at inpatient psych at the [facility] as described above in the consultation section. Essentially the patient was sent to the emergency department for IV fluid rehydration, they do not think this is medical, and this has been ongoing. If the patient continues to demonstrate inability to properly hydrate or nourish herself, she will be committed by the psychiatrist at the [facility]. Patient was agreeable with an IV and she received 2 L IV fluids initially. Her labs demonstrate a mild leukocytosis at 10.8, evidence of hemoconcentration with a hemoglobin of 17.6 compared from 13.1 on 09/08. She is hyponatremic at 149, hypokalemic at 2.7. Initially administered a total of 20 mEq IV potassium. No cardiac arrhythmias appreciated on ECG. Magnesium normal 2.1. Urine with evidence of contamination and infection, this was identified after the patient had been admitted. Hospitalist group aware. No evidence of acute kidney injury. Anion gap elevated at 19. Case was discussed with ED attending Dr. Velasquez. We felt that admission to the hospital was prudent given her multiple electrolyte abnormalities and starvation ketosis state, especially with her reluctance to take p.o. at the [facility]." Hospitalist service PA H&P: "This is a 41 y/o female with a PMH of asthma, PCOS, migraines, anxiety, depression, and recent paranoia who presents to the ED today from [facility], where she is currently inpatient due to acute paranoia, for dehydration. History obtained from the patient but also from her medical records from [facility] and from [facility] as it is unclear how reliable pt is as a historian. Per the notes, she presented to the ED on 09/05/22, brought by her aunt, with paranoia and abdominal pain. Per patient, she has been having ongoing issues with lower abdominal pain and getting short of breath with eating for the last few months. Symptoms seemed to start after having COVID in May. Pt reports that work-up at other facilities has been negative. She feels like she will get flushed, short of breath, and sometimes will have palpitations when she eats, particularly solid foods. Initially, she reports that she was tolerating liquids, including Ensure, but that her symptoms worsened which was why her aunt brought her to the ER. She is also concerned that the staff at [facility] are trying to poison her so she has been refusing to eat for the last several days. In the ED, she expressed similar concerns and has been extremely hesitant to even drink the bottled water provided by the ED staff. She repeated asked us if her water was safe to drink or if it was poison. Per [facility], pt has been intermittently taking her medications, may refuse to take specific ones. Pt reports that she does not think that she needs the Effexor so she often isn't taking. She is willing to consider the BuSpar. It appears that the Risperdal was discontinued a few days ago. She also does not think that she needs the trazodone as she thinks she is sleeping fine. She reports that she has asked for a liquid diet repeatedly at [facility] but keeps getting regular food "like cheeseburgers" which don't agree with her. Records from [facility] reveal that she has been ordered a regular diet as well as the specific foods like pudding and applesauce that she has been asking for but notes that she continues to refuse oral intake. She is currently admitted on a 201 but the psychiatric provider stated that a 302 may need to be filed if she continues to refuse nutrition and hydration. Pt specifically denies suicidal ideations, homicidal ideations, or intent of self-harm. Her urine in the ED was noted to have +nitrites, ketones, trace leuks. Pt was apparently recently treated for a UTI but she is unsure with what. She states that her urine has been strong but she denies urinary frequency, hematuria, or dysuria. She reports no recent BM but is passing gas. Stomach feels "quivery" at times." Pt now reports the pervasive feeling that her food and drinks are being poisoned. Although she feels hungry and thirsty and requests sealed water bottles and portions of pudding and applesauce, she still feels as if those have somehow been poisoned. One basis for her thinking she's been poisoned is that she's "been gassy". On approach pt lies in bed and very calmly tells me "I can't breathe because I ate some Jell-O" (while very clearly not displaying any shortness of breath at all). She tells me she's hungry and thirsty and that the bottle of water she clutches was opened in her presence and that a nurse drank water poured from it with no ill effects, yet I can't induce her to take a sip. She doesn't state unequivocally that she believes her food and water have been tampered with, just that "there might be something in it that disagrees with my insides". She stares at the clock (showing the time as 1330) and says she presumes she "won't make it to 4 o'clock because I can't breathe". She says she must user her inhalers "every 4 hours around the clock" in order to remain alive. The psychiatric nurse was able to contact pt's aunt (an ED nurse) for collateral information. She reports that pt had been functioning well, working as a remote customer account technician, until she became ill with CoVID-19. At that time she became highly focused on her breathing (an evaluation for which found mild asthma) and started taking many ambulance trips to the ED for this (and being sent home with no findings of concern). She began to voice the fear that her food "might be contaminated with CoVID" by careless workers. She also announced that she "couldn't walk" and started asking for incontinence garments and refusing to get out of bed. Eventually, her incontinence in bed soaked all the way through a mattress. The fear about viral contamination of her food shifted to a broader concern about vague contamination with "something else" and eventually she began accusing the aunt of poisoning her food and water with rat poison. Pt emphasizes to me numerous times that she's "not depressed" and essentially ignores any suggestion that she might be anxious. I spoke with her about oral- dissolving risperidone because she "wouldn't even need to swallow it" and "it wouldn't go straight to your stomach". Past Psychiatric History Previous Psych History: 1 admission to [facility] in June 2022 Allergies Allergy/AdvReac Type Severity Reaction Status Date / Time bee venom protein (honey bee) Allergy Severe SEVERE Verified 09/19/22 15:50 SWELLING AT STING SITES egg Allergy Severe Anaphylaxis Verified 09/19/22 15:50 methylprednisolone Allergy Unknown HIVES Verified 09/19/22 15:50 WHILE TAKING MEDROL DOSE PACK & ?? INHALER Home Medications Medication Instructions Recorded Confirmed Type acetaminophen 325 mg tablet 650 mg PO Q6 PRN Pain 09/08/22 09/19/22 History (Tylenol) albuterol sulfate 90 mcg/actuation 2 puff inhalation Q4H PRN 09/08/22 09/19/22 History aerosol inhaler Shortness Of Breath buspirone 5 mg tablet 5 mg PO TID 09/08/22 09/19/22 History epinephrine 0.3 mg/0.3 mL 0.3 ml IM BID PRN severe food egg 09/08/22 09/19/22 History injection, auto-injector allergy food supplemt, lactose-reduced 1 ea PO TID 09/08/22 09/19/22 History (Ensure oral liquid) montelukast 10 mg tablet 10 mg PO HS 09/08/22 09/19/22 History sennosides 8.6 mg tablet (senna) 8.6 mg PO HS PRN Constipation 09/08/22 09/19/22 History tiotropium bromide 1.25 1.25 mcg inhalation DAILY 09/08/22 09/19/22 History mcg/actuation mist for inhalation (Spiriva Respimat) trazodone 50 mg tablet 50 mg PO HS 09/08/22 09/19/22 History venlafaxine 75 mg capsule,extended 75 mg PO QAM 09/08/22 09/19/22 History release 24 hr zinc oxide 20 % topical ointment 1 applic topical BID 09/19/22 09/19/22 History Patient History Medical History Anxiety Depression Migraines Mild intermittent asthma Paranoia PCOS (polycystic ovarian syndrome) Surgical History No pertinent past surgical history Family History Mother Breast cancer Lung cancer Father Colorectal cancer Social History Smoking Status: Never smoker Do You Dip or Chew Tobacco: No; Hx Alcohol Use: No Hx Substance Use: No Preferred Language: Lithuanian Communication Ability: Effective Steamer Blocker Required: No Beliefs That Will Affect Care: None Current Living Situation: Other Current Living Situation Comment: [place] Feels Safe at Home: No Is there a partner from a previous relationship who is making you feel unsafe now?: No Any Concerns about Your Family Situation: No Would You Like to Speak to Someone About Your Situation: No Safety Concerns: Afraid for Self Assistive Devices: None Physical Exam Psychiatric: Orientation: alert, oriented to person, oriented to place, oriented to time and + guarded Apperance: appropriately dressed and appropriately groomed Eye Contact: + fair eye contact Motor Behavior: no a bnormal motor movements Speech: normal rate/rhythm/volume of speech Affect: + blunted affect (incongruent with the content of speech and thoughts) Mood: + anxious mood Thought Process: + perseveration (on subjective shortness of breath) and + concrete thought process Thought Content: + preoccupation (health concerns) and + delusions (about being poisoned somehow) Suicidal Thoughts: denies suicidal thoughts, denies suicidal plan and denies suicidal intent Homicidal Thoughts: denies homicidal thoughts Hallucinations: no auditory hallucinations and no visual hallucinations Cognition: recent memory grossly intact, remote memory grossly intact, attention grossly intact and language grossly intact Estimated Intelligence: average estimated intelligence Insight: + impaired insight Judgment: + impaired judgement Vital Signs (Past 24 Hours): Last Vital Signs Temp 36.4 C L 09/20/22 07:35 Pulse 95 H 09/20/22 12:14 Resp 16 09/20/22 12:14 BP 97/65 L 09/20/22 07:35 Pulse Ox 100 09/20/22 12:14 O2 Del Method Room Air 09/20/22 12:14 Exam Statement: A physical exam was performed in the ED for the purposes of medical clearance. I accept that physical as correct and adequate for the purposes of the inpatient physical exam. Review of Systems Psychiatric: + behavioral changes, + anxiety, + difficulty concentrating and + paranoia; no depression, no change in appetite, no suicidal ideation, no homicidal ideation and no hallucinations Results & Data (PSY) Medications Administered Buspirone HCl (Buspirone 5 Mg Tab) 5 mg PO TID MARCIO Stop: 10/19/22 20:59 Last Admin: 09/20/22 08:37 Dose: 5 mg Documented By: Admin: 09/19/22 21:07 Dose: 5 mg Documented By: GCB Levalbuterol HCl (Levalbuterol Tartrate 15 Gm Hfa.Aer.Ad) 2 puffs INH Q4R PRN PRN Reason: sob/wheeze Stop: 10/19/22 20:42 Last Admin: 09/20/22 12:13 Dose: 2 puffs Documented By: Admin: 09/20/22 07:46 Dose: 2 puffs Documented By: TOD Montelukast Sodium (Montelukast Sodium 10 Mg Tablet) 10 mg PO HS [facility] Stop: 10/19/22 20:59 Last Admin: 09/19/22 21:07 Dose: 10 mg Documented By: YAYOB Umeclidinium Maynard (Umeclidinium Maynard 62.5mcg/Blister 7 Puffs/Inhaler) 1 puffs INH DAILY MARCIO Stop: 10/20/22 08:59 Last Admin: 09/20/22 08:37 Dose: 1 puffs Documented By: NATHANAEL Venlafaxine HCl (Venlafaxine Hcl Xr 75 Mg Capxr) 75 mg PO QAM [facility] Stop: 10/20/22 08:59 Last Admin: 09/20/22 08:37 Dose: 75 mg Documented By: NATHANAEL Coding Level of Care Code 28605 IN/OBS CONSULT LVL 4,60M Diagnoses Delusional disorder, somatic type F22 Time Spent (min) 70
[2022-09-20] MEDS ORDERED: ERGOCALCIFEROL 50,000 UNITS 1250 MCG CAP PO SCH (13:30)
[2022-09-20] MEDS ORDERED: POTASSIUM CHLORIDE CRTAB 20 MEQ TABCR PO STA (14:25)
[2022-09-20] MEDS: MONTELUKAST SODIUM 10 MG TABLET PO SCH (20:23)
[2022-09-20] MEDS: risperiDONE ODT 0.5 MG SOLTAB PO SCH (21:21)
--- NOTE | 2022-09-20 22:41 | Electrocardiogram Report ---
Test Reason : Blood Pressure : / mmHG Vent. Rate : 070 BPM Atrial Rate : 070 BPM P-R Int : 114 ms QRS Dur : 072 ms QT Int : 390 ms P-R-T Axes : 011 026 025 degrees QTc Int : 421 ms Poor data quality, interpretation may be adversely affected Normal sinus rhythm with sinus arrhythmia Normal ECG When compared with ECG of 08-SEP-2022 18:31, No significant change was found Confirmed by Christian Kinsey ([id number]) on 09/20/2022 10:40:49 PM Referred By: Mela Dawkins Confirmed By:Christian Kinsey
[2022-09-21] MEDS: LEVALBUTEROL TARTRATE 15 GM HFA.AER.AD INH PRN ×4 (07:05→19:22)
[2022-09-21] MEDS: risperiDONE ODT 0.5 MG SOLTAB PO SCH ×2 (08:50→20:15)
[2022-09-21] MEDS: busPIRone 5 MG TAB PO SCH ×3 (08:51→20:14)
[2022-09-21] MEDS: UMECLIDINIUM BROMIDE 62.5MCG/BLISTER 7 PUFFS/INHALER INH SCH (08:51)
[2022-09-21 09:02] LABS: BUN Creatinine Ratio 19.6 (10-20); Calcium 8.9 mg/dl (8.5-10.1); Creatinine Clr Calc Pharmacy 115.8 ml/min; Est GFR (African American) 134.2 ml/min; Est GFR (Non-African American) 115.8 ml/min; Magnesium 1.7 mg/dl (1.7-2.4); Potassium 3.6 mmol/L (3.5-5.1)
[2022-09-21 09:10] LABS: Basophils # (auto) 0.05 K/uL (0-0.2); Basophils % (auto) 0.8 %; Eosinophils # (auto) 0.17 K/uL (0-0.50); Eosinophils % (auto) 2.7 %; Hematocrit (blood only) 40.5 % (37.0-47.0); Hemoglobin 13.4 g/dl (12.0-16.0); Immature Granulocytes # (auto) 0.02 K/uL (0.01-0.20); Immature Granulocytes % (auto) 0.3 %; Lymphocytes # (auto) 1.32 K/uL (1.2-3.4); Lymphocytes % (auto) 20.8 %; Mean Corpuscular Hemoglobin 29.8 pg (25.0-34.0); Mean Corpuscular Hgb Conc 33.1 g/dL (32.0-36.0); Mean Platelet Volume 12.1 fL (9.4-12.4); Monocytes # (auto) 0.55 K/uL (0.11-0.59); Monocytes % (auto) 8.7 %; Neutrophils # (auto) 4.24 K/uL (1.40-6.50); Neutrophils % (auto) 66.7 %; Platelet Count 183 K/uL (130-400); RDW Coefficient of Variation 14.1 % (11.5-14.5); RDW Standard Deviation 46.5 fL (36.4-46.3); White Blood Count 6.35 K/ul (4.8-10.8)
--- NOTE | 2022-09-21 12:07 | Hospitalist Progress Note ---
Date of Service September 21, 2022 Assessment & Plan (1) Starvation ketoacidosis: (2) Hypernatremia: (3) Hypokalemia: (4) Paranoia: Plan This is a 41 y/o female with a PMH of PCOS, asthma, IBS, depression, anxiety, and recent paranoia who presented to the ED from [place] with dehydration and electrolyte abnormalities related to refusal to eat or drink water due to underlying paranoia that someone is trying to poison her ([facility] staff, her family). Per outpatient records, hx of anxiety and depression but no documentation of prior psychosis until recent symptoms, which seemed to start after COVID in May. Patient currently admitted to [facility] Electrolytes were replaced yesterday and she received IVF Dehydration was supported with evidence of polycythemia and hyponatremia. She also had profound hypokalemia THis has since resolved Patient continues to have aversion to food and drinks due to paranoia for rat poison as well as abd pain She states this started since being admitted to the [facility] September 07 encourage nutrition as able medically she has stabilized per pt request will reach out to her aunt Kylie [phone] to discuss her care, pt wishes to return home with Kylie in [place], [place]; however she is not sure if she would be willing to come get her She does not want to go back to the [facility] Appreciate psych recs, Effexor D/C in favor of risperdal continue buspar Delusional disorder very difficult to treat and can't get caught repeating patients delusions as will only make worse Vitamin D deficiency We will start 50,000 IUs of vitamin D2 weekly for 6 weeks then recommend 800 IUs daily thereafter Will need repeat vitamin D level in 3 months Elevated vitamin B12 Avoid further B12 supplementation Abnormal urinalysis Patient asymptomatic urine culture mixed erin, no indication to tx Electrolyte abnormality Patient with hyponatremia, hypokalemia, hypophosphatemia This has since resolved Dispo: admitted to med/surg, seen by psych, pt does not wish to return to [facility], attempted to contact pt Aunt Kyliealpa FULL CODE A total of 35 minutes was spent with greater than 50% of that time personally viewing all current laboratory work and diagnostic imaging studies obtained in the ED. Additionally, I was able to view the patients past medication reconciliation and history with direct visualization in the patients chart. Included in the time above, a portion of that time was spent assessing the patient while discussing and collaborating with specialists, if necessary, and making medical decision making on treatment plan. All of the above was collaborated with Dr. Berger. Please see addendum for further details. Admission and Anticipated Discharge Date Admission Date: September 20, 2022 Supervising Physician Co-Signing Physician Notes Patient seen and examined independently. Discussed with Kelly Banuelos Patient presented from [facility] with paranoia, hyponatremia, starvation ketosis and hypokalemia. Electrolytes improvement noted with IV hydration and potassium supplementation. Attempts were made to contact her aunt for discharge. Social service and psychiatry on board for help with the disposition. Subjective Patient was seen and examined in room 384 -2. Follow-up paranoia with food electrolyte abnormalities. She states this morning her "stomach is not right." She further states that the new medication Risperdal is going to put her into an asthma attack and affect her heart so she is not sure if she is going to take it. She continues to remain paranoid about food and states she is unable to eat because of abdominal pain. We discussed communicating with her and as she states she typically stays with her. Patient does not want to go back to the [facility]. She denies a fever, chills, sweats, lightheadedness, dizziness, chest pain, shortness of breath and nausea. Review of Systems Review of Systems: All systems reviewed & are unremarkable except as noted in HPI & below Physical Exam Physical Exam: Gen: WD/WN, female, pleasant but paranoia,NAD, A&O x3 HEENT: Normocephalic, atraumatic, conjunctivae moist, sclerae anicteric, mucous membranes moist. Lung: Clear to Auscultation bilaterally, no wheezes/rales/rhonchi Heart: Regular rate, regular rhythm, no murmurs, rubs, or gallops Abdomen: Soft, NT, ND +BS x 4 Extremities: No edema Skin: Warm, no rash, negative turgor. Results & Data Results & Data Vital Signs (Past 12 Hours) Vital Signs Temp Pulse Resp BP Pulse Ox O2 Del Method 09/21/22 08:50 Room Air 09/21/22 11:05 96 H 18 99 Room Air 09/21/22 07:25 36.8 C 102 H 18 109/72 100 Room Air 09/21/22 07:05 104 H 16 98 Room Air Laboratory Results Short CBC 09/21/22 Range/Units 07:53 WBC 6.35 (4.8-10.8) K/ul Hgb 13.4 D (12.0-16.0) g/dl Hct 40.5 (37.0-47.0) % Plt Count 183 (130-400) K/uL BMP 09/21/22 07:53 Sodium 143 Potassium 3.6 Chloride 110 H Carbon Dioxide 22 BUN 11 Creatinine 0.56 L Glucose 77 Calcium 8.9 Medications Administered Current Inpatient Medications Buspirone HCl (Buspirone 5 Mg Tab) 5 mg PO TID [facility] Stop: 10/19/22 20:59 Last Admin: 09/21/22 08:51 Dose: Not Given Ergocalciferol (Ergocalciferol 50,000 Units 1250 Mcg Cap) 50,000 units PO Q7D@1330 [facility] Stop: 10/20/22 13:29 Last Admin: 09/20/22 14:04 Dose: 50,000 units Levalbuterol HCl (Levalbuterol Tartrate 15 Gm Hfa.Aer.Ad) 2 puffs INH Q4R PRN PRN Reason: sob/wheeze Stop: 10/19/22 20:42 Last Admin: 09/21/22 11:05 Dose: 2 puffs Montelukast Sodium (Montelukast Sodium 10 Mg Tablet) 10 mg PO HS MARCIO Stop: 10/19/22 20:59 Last Admin: 09/20/22 20:23 Dose: 10 mg Risperidone (Risperidone Odt 0.5 Mg Soltab) 0.5 mg PO BID MARCIO Stop: 10/20/22 20:59 Last Admin: 09/21/22 08:50 Dose: 0.5 mg Umeclidinium [place] (Umeclidinium [place] 62.5mcg/Blister 7 Puffs/Inhaler) 1 puffs INH DAILY MARCIO Stop: 10/20/22 08:59 Last Admin: 09/21/22 08:51 Dose: 1 puffs
--- NOTE | 2022-09-21 14:14 | Discharge Summary ---
Discharge Summary Date of Service September 21, 2022 Notes For Next Care Provider Patient admitted secondary to starvation ketosis and would like derangements of hypokalemia, hypophosphatemia and hypernatremia. She was treated with IV fluids and electrolyte repletion. She remained significantly paranoid over food poisoning and staff had difficulty getting patient to eat due to persistent paranoia. She was seen and evaluated by inpatient psych recommend discontinuing Effexor in favor of sublingual risperidone. Recommend repeat CBC, BMP, mag and phosphorus in 3 days. Medication Changes From Visit Stop Effexor Start Risperdal ODT 0.5 mg twice daily Vitamin D2 5000 units once weekly on Tuesdays for additional 5 weeks. After 5 weeks of vitamin D2 then recommend vitamin D3 800 international units daily thereafter. Continue all other medications Admission HPI Per Admitting Provider This is a 41 y/o female with a PMH of asthma, PCOS, migraines, anxiety, depression, and recent paranoia who presents to the ED today from [place], where she is currently inpatient due to acute paranoia, for dehydration. History obtained from the patient but also from her medical records from [facility] and from [place] as it is unclear how reliable pt is as a historian. Per the notes, she presented to the ED on 09/05/22, brought by her aunt, with paranoia and abdominal pain. Per patient, she has been having ongoing issues with lower abdominal pain and getting short of breath with eating for the last few months. Symptoms seemed to start after having COVID in May. Pt reports that work-up at other facilities has been negative. She feels like she will get flushed, short of breath, and sometimes will have palpitations when she eats, particularly solid foods. Initially, she reports that she was tolerating liquids, including Ensure, but that her symptoms worsened which was why her aunt brought her to the ER. She is also concerned that the staff at [place] are trying to poison her so she has been refusing to eat for the last several days. In the ED, she expressed similar concerns and has been extremely hesitant to even drink the bottled water provided by the ED staff. She repeated asked us if her water was safe to drink or if it was poison. Per [place], pt has been intermittently taking her medications, may refuse to take specific ones. Pt reports that she does not think that she needs the Effexor so she often isn't taking. She is willing to consider the BuSpar. It appears that the Risperdal was discontinued a few days ago. She also does not think that she needs the trazodone as she thinks she is sleeping fine. She reports that she has asked for a liquid diet repeatedly at [place] but keeps getting regular food "like cheeseburgers" which don't agree with her. Records from [place] reveal that she has been ordered a regular diet as well as the specific foods like pudding and applesauce that she has been asking for but notes that she continues to refuse oral intake. She is currently admitted on a 201 but the psychiatric provider stated that a 302 may need to be filed if she continues to refuse nutrition and hydration. Pt specifically denies suicidal ideations, homicidal ideations, or intent of self-harm. Her urine in the ED was noted to have +nitrites, ketones, trace leuks. Pt was apparently recently treated for a UTI but she is unsure with what. She states that her urine has been strong but she denies urinary frequency, hematuria, or dysuria. She reports no recent BM but is passing gas. Stomach feels "quivery" at times. Admission Exam Per Admitting Provider Constitutional:L well developed and well nourished; no acute distress Eyes: + anicteric sclerae ENMT: dry oral mucosa Neck: trachea midline Respiratory: no respiratory distress and no labored breathing Auscultation: lungs clear to auscultation bilaterally; no rales, no rhonchi and no wheezes Cardiovascular: Rate/Rhythm: regular rhythm and + tachycardic Vessels: radial pulses present Extremities: normal capillary refill; no pedal edema Gastrointestinal (Abdomen): Inspection/Auscultation: normal bowel sounds; abdomen not distended Percussion/Palpation: abdomen soft; abdomen nontender Musculoskeletal: Head/Neck/Chest: normocephalic, head atraumatic and neck supple Skin: no jaundice No decreased skin turgor Neurologic: moves all extremities; no focal motor deficits Psychiatric: Orientation: alert and oriented x 3 Eye Contact: + fair eye contact Motor Behavior: no abnormal motor movements Affect: + anxious affect Mood: + anxious mood Thought Process: + perseveration Thought Content: + paranoid Principal Dx & Hospital Course #1 = Principal Diagnosis (1) Starvation ketoacidosis: (2) Hypernatremia: (3) Hypokalemia: (4) Paranoia: Plan This is a 41 y/o female with a PMH of PCOS, asthma, IBS, depression, anxiety, and recent paranoia who presented to the ED from [place] with dehydration and electrolyte abnormalities related to refusal to eat or drink water due to underlying paranoia that someone is trying to poison her ([facility] staff, her family). Per outpatient records, hx of anxiety and depression but no documentation of prior psychosis until recent symptoms, which seemed to start after COVID in May. Patient currently admitted to [facility] Electrolytes were replaced yesterday and she received IVF Dehydration was supported with evidence of polycythemia and hypernatremia. She also had profound hypokalemia. THis has since resolved Patient continues to have aversion to food and drinks due to paranoia for rat poison as well as abd pain She states this started since being admitted to the [facility] September 07 encourage nutrition as able medically she has stabilized per pt request will reach out to her aunt Kylie [phone] to discuss her care, pt wishes to return home with Kylie in [place], [place]; however she is not sure if she would be willing to come get her Per customer manager and attending after further discussion with psych pt is now agreeable to return to the [facility] Appreciate psych recs, Effexor D/C in favor of risperdal continue buspar Delusional disorder very difficult to treat and can't get caught repeating patients delusions as will only make worse Vitamin D deficiency We will start 50,000 IUs of vitamin D2 weekly for 6 weeks then recommend 800 IUs daily thereafter Will need repeat vitamin D level in 3 months Elevated vitamin B12 Avoid further B12 supplementation Abnormal urinalysis Patient asymptomatic urine culture mixed erin, no indication to tx Electrolyte abnormality Patient with hyponatremia, hypokalemia, hypophosphatemia This has since resolved Dispo: admitted to med/surg, pt to d/c back to the [facility] FULL CODE A total of 35 minutes was spent with greater than 50% of that time personally viewing all current laboratory work and diagnostic imaging studies obtained in the ED. Additionally, I was able to view the patients past medication reconciliation and history with direct visualization in the patients chart. Included in the time above, a portion of that time was spent assessing the patient while discussing and collaborating with specialists, if necessary, and making medical decision making on treatment plan. All of the above was collaborated with Dr. Berger. Please see addendum for further details. Discharge Exam see todays progress note Updated Medication List Medication Instructions Recorded Confirmed Type acetaminophen 325 mg tablet 650 mg PO Q6 PRN Pain 09/08/22 09/19/22 History (Tylenol) albuterol sulfate 90 mcg/actuation 2 puff inhalation Q4H PRN 09/08/22 09/19/22 History aerosol inhaler Shortness Of Breath buspirone 5 mg tablet 5 mg PO TID 09/08/22 09/19/22 History epinephrine 0.3 mg/0.3 mL 0.3 ml IM BID PRN severe food egg 09/08/22 09/19/22 History injection, auto-injector allergy food supplemt, lactose-reduced 1 ea PO TID 09/08/22 09/19/22 History (Ensure oral liquid) montelukast 10 mg tablet 10 mg PO HS 09/08/22 09/19/22 History sennosides 8.6 mg tablet (senna) 8.6 mg PO HS PRN Constipation 09/08/22 09/19/22 History tiotropium bromide 1.25 1.25 mcg inhalation DAILY 09/08/22 09/19/22 History mcg/actuation mist for inhalation (Spiriva Respimat) trazodone 50 mg tablet 50 mg PO HS 09/08/22 09/19/22 History zinc oxide 20 % topical ointment 1 applic topical BID 09/19/22 09/19/22 History ergocalciferol (vitamin D2) 1,250 50,000 unit PO Q7D@1330 #5 caps 09/21/22 Rx mcg (50,000 unit) capsule risperidone 0.5 mg disintegrating 0.5 mg PO BID #60 tabs 09/21/22 Rx tablet Hospital Stay Data Consultations 09/19/22 15:36 ED Decision to Admit Stat 09/19/22 18:33 Consult Psychiatry Routine Pending Results Patient Have Any Pending Studies at Discharge: No Discharge Instructions Given to Patient (Per Discharging Provider) MEDICATION CHANGES: Stop Effexor Start Risperdal ODT 0.5 mg twice daily Vitamin D2 5000 units once weekly on Tuesdays for additional 5 weeks. After 5 weeks of vitamin D2 then recommend vitamin D3 800 international units daily thereafter. Continue all other medications SUMMARY OF TEST RESULTS: You were admitted to hospital secondary to severe dehydration along with high sodium, low potassium and low phosphorus. This is secondary to your lack of oral intake over several days due to concern over food safety. You were treated with IV fluids and your electrolytes were repleted. This has since resolved. Medically your condition has improved; however you continue to have paranoia over food safety. You were seen and evaluated by psychiatry and your Effexor was discontinued in favor of a new medication Risperdal. PENDING TEST RESULTS: None RECOMMENDATIONS FOR FOLLOW-UP: Please follow-up with primary care provider after discharge from the [facility]. Would recommend repeat CBC, BMP, mag and Phos in 3 days. Encourage oral intake as much as patient will tolerate. Advance diet as able. OTHER INSTRUCTIONS: Seek medical attention if you have: * temperature above 101 * chest pain or trouble breathing * abdominal pain, nausea, vomiting * diarrhea, dark stools or bloody stools * any unanswered questions or concerns Call 911 if symptoms are severe. Please take good care of yourself. It has been a pleasure taking care of you. Please take care of yourself. If you have any questions regarding your recent hospitalization please contact [facility] and request manolo Maryist @ [phone]. Kelly Beltran PA-C Total Time Total Time Spent Total Time Spent (In Minutes): 35 minutes Supervising Physician Co-Signing Physician Notes Patient seen and examined independently. Discussed with Kelly Banuelos Patient presented from [facility] with paranoia, hyponatremia, starvation ketosis and hypokalemia. Electrolytes improvement noted with IV hydration and potassium supplementation. Discharge back to [facility] today.
--- NOTE | 2022-09-21 15:15 | Communication Note ---
Date of Service: September 21, 2022 Impression / Recommendations Impression 09/20/2022: 41 y/o F whose anxieties about potential repeat exposure to SARS-CoV-2 have ballooned into abbey somatic delusions that have had a severe impact on her ability to function and on her health - she has a sacral ulcer from lying in excretions for extended periods, was dehydrated with electrolyte abnormalities, and was in starvation ketoacidosis on presentation. She has extremely poor insight. By history, there is no antecedent or precipitant identified other than her having contracted CoVID-19. SARS-CoV-2 is known to infect cerebral neurons, so in the absence of other plausible causes I presume that was the causative factor. That doesn't really help with identifying treatment. Delusional disorders are notoriously resistant to treatment, but antipsychotic medication would be the most likely to help. 09/21/2022: Pt has now been medically for discharge from the medical unit. She had earlier indicated a willingness to return to [place] where she had been admitted for treatment prior to having been brought here due to dehydration and starvation ketosis. However, she appears to have changed her mind and requested to speak with me again. Pt tells me she doesn't want to go to [facility] because she knows she'll "be before morning" - this is nothing specifically to do with that facility but rather because she knows she "can't breathe and won't make it no matter what". As she has before, she endeavors to ensure that I know she's "not depressed" (and, as before, utterly ignores my pointing out that she's very anxious and that her somatic delusions really do lead to her being at substantial risk). Pt bemoans that "it seems like the only options are 201 or 302" (that is, voluntary or involuntary admission) and persists with that even after I agree that, if fact, those are the only options. She says clearly and repeatedly that she prefers to go voluntarily "because the other way is so much more complicated". (1) Delusional disorder, somatic type: None Plan * avoid going around in circles about pt's preference not to go to the psychiatric facility. She knows on some level that she can't go home, and it's certainly not appropriate for her to remain on a medical unit to receive the psychiatric care she needs. It is not possible to reach a consensus with her or to reassure her because of the obsessive quality of her anxieties and because delusions don't respond to information or reassurance. * avoid getting caught in constantly addressing pt's repetitive fears and delusional beliefs, since these are not things she can be "talked out of". * avoid the temptation to frighten pt into eating and drinking; she knows she needs to, and her not doing so is not due to a lack of information about the health consequences. * in general, clear, concise information presented once or twice would be appropriate, then for repetitive questions or concerns refer pt back to what she's already been told. Physical Exam Psychiatric Orientation: alert, oriented to person, oriented to place, oriented to time and + guarded Apperance: appropriately dressed and appropriately groomed Eye Contact: + fair eye contact Motor Behavior: no abnormal motor movements Speech: normal rate/rhythm/volume of speech Affect: + blunted affect (incongruent with the content of speech and thoughts) Mood: + anxious mood Thought Process: + perseveration (on subjective shortness of breath) and + concrete thought process Thought Content: + preoccupation (health concerns), + paranoid and + delusions (about being poisoned somehow) Suicidal Thoughts: denies suicidal thoughts, denies suicidal plan and denies suicidal intent Homicidal Thoughts: denies homicidal thoughts Hallucinations: no auditory hallucinations and no visual hallucinations Cognition: recent memory grossly intact, remote memory grossly intact and attention grossly intact Estimated Intelligence: average estimated intelligence Insight: + impaired insight Judgment: + impaired judgement
[2022-09-21] MEDS: MONTELUKAST SODIUM 10 MG TABLET PO SCH (20:14)
== END 2022-09-21 21:39 | DRG 642 ==
LOC: ED 13:06 → 3N 13:06

== ENCOUNTER 2022-10-03 11:09 | Inpatient (IN) ==
[2022-10-03] MEDS ORDERED: METOCLOPRAMIDE HCL INJ 5 MG/ML 2 ML VIAL IV ONE (11:23)
[2022-10-03] MEDS ORDERED: FAMOTIDINE 20MG IV PUSH 20 MG/5 ML SYR IV STA (11:23)
[2022-10-03] MEDS ORDERED: ALBUTEROL HFA 8 GM INHALER INH ONE (11:24)
[2022-10-03] MEDS ORDERED: SODIUM CHLORIDE 0.9% 1000ML 1,000 ML IV SCH (11:30)
[2022-10-03 11:54] LABS: Basophils # (auto) 0.04 K/uL (0-0.2); Basophils % (auto) 0.4 %; Hematocrit (blood only) 46.2 % (37.0-47.0); Hemoglobin 15.8 g/dl (12.0-16.0); Immature Granulocytes # (auto) 0.02 K/uL (0.01-0.20); Immature Granulocytes % (auto) 0.2 %; Lymphocytes # (auto) 0.52 K/uL (1.2-3.4); Lymphocytes % (auto) 5.8 %; Mean Corpuscular Hemoglobin 29.4 pg (25.0-34.0); Mean Corpuscular Hgb Conc 34.2 g/dL (32.0-36.0); Mean Platelet Volume 12.1 fL (9.4-12.4); Monocytes # (auto) 0.51 K/uL (0.11-0.59); Monocytes % (auto) 5.7 %; Neutrophils % (auto) 87.9 %; Platelet Count 262 K/uL (130-400); RDW Coefficient of Variation 14.6 % (11.5-14.5); RDW Standard Deviation 45.5 fL (36.4-46.3); Red Blood Count 5.37 M/uL (4.20-5.40); White Blood Count 8.89 K/ul (4.8-10.8)
--- NOTE | 2022-10-03 12:04 | Emergency Department Note ---
Impression & Plan Hypokalemia, Dehydration, Abdominal pain, Nausea & vomiting ED Provider Note Provider: Carlos Manuel Marley MD DATE OF SERVICE: 10/03/2022 CHIEF COMPLAINT: Not eating and drinking, nausea, abdominal pain HISTORY OF PRESENT ILLNESS: Patient is a 41-year-old female currently at the [facility] for inpatient psychiatric care with a history of IBS by her report presenting complaining of ongoing issues with her stomach over the past several months. Since September has not been able to eat or drink very much. Reports some diffuse abdominal pain. Endorses nausea. Was hospitalized here several weeks ago. States he feels thirsty and having concentrated urine. Denies significant fevers. No trauma reported. Zofran nausea medicine not helping that much. States she needs her Ventolin at noon as scheduled. Took it this morning. Denies significant breathing issues currently. PAST MEDICAL HISTORY: As noted above MEDICATIONS: Reviewed medications that she is currently been taking SOCIAL HISTORY: From [place] but currently staying [facility] PHYSICAL EXAM: GENERAL: alert and oriented in no acute distress on stretcher Head: normocephalic and atraumatic EYES: No injection, discharge or icterus. NECK: Trachea midline. ENT: Mucous membranes pink but appear dry with some cracking of the tongue, no bleeding LUNGS: Airway patent. No retractions. Breath sounds clear with good air entry bilaterally. HEART: Regular rate and rhythm. No chest wall tenderness ABDOMEN: Soft mild diffuse abdominal tenderness SKIN: Acyanotic, warm, dry, without rashes EXTREMITIES: Without swelling, tenderness or deformity NEUROLOGICAL: No focal deficits. No aphasia. No facial droop or slurred speech. EK bpm normal sinus rhythm without PVC or PAC. No acute ST segment lupe vation or depression with a QTc of 528. CONTINUOUS CARDIAC MONITORING: was ordered and showed a heart rate of 80s-90s bpm in normal sinus rhythm Patient's laboratory studies and imaging reviewed. Differential includes Appendicitis, ovarian cyst, ovarian torsion, ectopic , TOA, PID, infections, diverticulitis, UTI, obstruction, mesenteric ischemia, aortic pathology, inflammatory bowel disease, renal colic, PUD, pancreatitis, biliary pathology, hernia, volvulus, constipation, as well as other pathologies. IMPRESSION/MEDICAL DECISION MAKING: Reviewed recent notes with hospitalization several weeks ago as well as ED evaluation last week. Continued diffuse abdominal discomfort decreased intake. Tongue does appear quite dry with limited intake reported. Concentrated urine reported. Given some IV hydration. Basic labs obtained. Some hypokalemia of 2.9 noted. No other severe electrolyte abnormalities or evidence of , hepatitis, or pancreatitis. Blood work without significant anemia or leukocytosis. Urinalysis with some contamination but ketones noted as well as white blood cells and leuk esterase. Given an empiric dose of ceftriaxone. Negative COVID testing here today. CT scan of the abdomen pelvis without significant acute findings noted with a normal appendix and no evidence of bowel obstruction per radiology. Given the patient prolonged QTc with low potassium and her multiple QT prolonging medications, will have the hospitalist evaluate for further monitoring pending improvement. Patient again on psychiatric commitment at this current point. Patient states her nausea is feeling improved but having a lot of gas and abdominal discomfort. We will trial a dose of Bentyl to see if this helps with her abdominal symptoms as well. Still recei ving her first dose of IV potassium and avoiding significant oral potassium initially given her nausea and GI upset currently. Magnesium within normal limits. Hypokalemia may be related to her decreased intake. Discussed with the hospitalist team. DIAGNOSIS: Hypokalemia, nausea and vomiting, abdominal pain, prolonged QTc, acute UTI DISPOSITION: Hospitalist will evaluate Patient was agreeable with this plan. Past Med/Surg History Medical History Anxiety Depression Migraines Mild intermittent asthma Paranoia PCOS (polycystic ovarian syndrome) Surgical History No pertinent past surgical history Family History Mother Breast cancer Lung cancer Father Colorectal cancer Social History Smoking Status: Never smoker Hx Alcohol Use: No Hx Substance Use: No Preferred Language: Peruvian Communication Ability: Effective Paper Bundler Required: No Beliefs That Will Affect Care: None Current Living Situation: Other Current Living Situation Comment: [place] Feels Safe at Home: Yes Assistive Devices: None Allergies Allergies Allergy/AdvReac Type Severity Reaction Status Date / Time bee venom protein (honey bee) Allergy Severe SEVERE Verified 09/19/22 15:50 SWELLING AT [place] egg Allergy Severe Anaphylaxis Verified 09/19/22 15:50 methylprednisolone Allergy Unknown HIVES Verified 09/19/22 15:50 WHILE TAKING MEDROL DOSE PACK & ?? INHALER Home Meds Home Medications Medication Instructions Recorded Confirmed acetaminophen 325 mg tablet 650 mg PO Q6 PRN Pain 09/08/22 10/03/22 (Tylenol) albuterol sulfate 90 mcg/actuation 2 puff inhalation QID 09/08/22 10/03/22 aerosol inhaler buspirone 5 mg tablet 5 mg PO BID 09/08/22 10/03/22 epinephrine 0.3 mg/0.3 mL 0.3 ml IM BID PRN severe food egg 09/08/22 10/03/22 injection, auto-injector allergy food supplemt, lactose-reduced 1 ea PO TID 09/08/22 10/03/22 (Ensure oral liquid) montelukast 10 mg tablet 10 mg PO HS 09/08/22 10/03/22 sennosides 8.6 mg tablet (senna) 8.6 mg PO HS PRN Constipation 09/08/22 10/03/22 tiotropium bromide 1.25 1.25 mcg inhalation DAILY 09/08/22 10/03/22 mcg/actuation mist for inhalation (Spiriva Respimat) trazodone 50 mg tablet 50 mg PO HS 09/08/22 10/03/22 zinc oxide 20 % topical ointment 1 applic topical BID 09/19/22 10/03/22 escitalopram oxalate 5 mg tablet 5 mg PO DAILY 10/03/22 10/03/22 famotidine 20 mg tablet 20 mg PO BID 10/03/22 10/03/22 hydroxyzine pamoate 25 mg capsule 25 mg PO BID PRN Abdominal 10/03/22 10/03/22 Discomfort risperidone 3 mg tablet (Risperdal) 3 mg PO BID 10/03/22 10/03/22 Results & Data (ED) Vital Signs Vital Signs - 24 hr 10/03/22 11:14 10/03/22 11:21 10/03/22 11:38 Temperature 37.2 C Temperature Source Temporal Artery Scan Pulse Rate 98 H Pulse Rate [Right Finger] 95 H Pulse Rhythm [Right Finger] Pulse Strength [Right Finger] Respiratory Rate 19 Respiratory Effort / Characteristics Respiratory Depth Normal Respiratory Pattern Blood Pressure 111/91 Blood Pressure [Right Arm] 111/91 Blood Pressure Mean 97 Blood Pressure Mean [Right Arm] 97 Blood Pressure Position [Right Arm] Pulse Oximetry 96 98 100 Oxygen Delivery Method Room Air Room Air Room Air Sepsis Recent Fever Within 48 Hours No Sepsis New/Unexplained Change in Mental Status No Sepsis Action Taken by Nursing No Action Required 10/03/22 12:46 10/03/22 13:00 10/03/22 16:55 Temperature Temperature Source Pulse Rate 89 84 Pulse Rate [Right Finger] 94 H Pulse Rhythm [Right Finger] Regular Pulse Strength [Right Finger] Normal Respiratory Rate 18 Respiratory Effort / Characteristics Non-Labored Respiratory Depth Normal Respiratory Pattern Regular Blood Pressure Blood Pressure [Right Arm] 115/89 Blood Pressure Mean Blood Pressure Mean [Right Arm] 97 Blood Pressure Position [Right Arm] Lying Pulse Oximetry 100 Oxygen Delivery Method Room Air Sepsis Recent Fever Within 48 Hours Sepsis New/Unexplained Change in Mental Status Sepsis Action Taken by Nursing Laboratory Data 10/03/22 11:30 10/03/22 11:30 Lab Results 10/03/22 10/03/22 10/03/22 Range/Units 11:30 11:30 11:30 WBC 8.89 (4.8-10.8) K/ul RBC 5.37 (4.20-5.40) M/uL Hgb 15.8 (12.0-16.0) g/dl Hct 46.2 (37.0-47.0) % MCV 86.0 (80.0-100.0) fL MCH 29.4 (25.0-34.0) pg MCHC 34.2 (32.0-36.0) g/dL RDW Std Deviation 45.5 (36.4-46.3) fL RDW Coeff of Vaughn 14.6 H (11.5-14.5) % Plt Count 262 (130-400) K/uL MPV 12.1 (9.4-12.4) fL Immature Gran % (Auto) 0.2 % Neut % (Auto) 87.9 % Lymph % (Auto) 5.8 % [place] % (Auto) 5.7 % Eos % (Auto) 0.0 % Baso % (Auto) 0.4 % Neut # (Auto) 7.80 H (1.40-6.50) K/uL Lymph # (Auto) 0.52 L (1.2-3.4) K/uL [place] # (Auto) 0.51 (0.11-0.59) K/uL Eos # (Auto) 0.00 (0-0.50) K/uL Baso # (Auto) 0.04 (0-0.2) K/uL Immature Gran # (Auto) 0.02 (0.01-0.20) K/uL Sodium 143 (136-145) mmol/L Potassium 2.9 L (3.5-5.1) mmol/L Chloride 103 (98-107) mmol/L Carbon Dioxide 23 (21-32) mmol/L Anion Gap 17 H (3-11) BUN 12 (6-23) mg/dl Creatinine 0.77 (0.6-1.2) mg/dl Est Cr Clr Drug Dosing 87.5 ml/min Est GFR ( Amer) 111.2 ml/min Est GFR (Non-Af Amer) 95.9 ml/min BUN/Creatinine Ratio 15.6 (10-20) Glucose 113 H (70-99(Fasting)) mg/dl Calcium 9.8 (8.6-10.3) mg/dl Phosphorus (2.5-4.9) mg/dl Magnesium 2.0 (1.7-2.4) mg/dl Total Bilirubin 0.9 (0.2-1.0) mg/dl AST 18 (13-39) U/L ALT 19 (7-52) U/L Alkaline Phosphatase 58 (34-104) U/L Troponin I High Sens 3.4 (0-14) pg/ml Total Protein 7.8 (6.0-8.3) gm/dl Albumin 4.2 (3.4-5.0) gm/dl Globulin 3.6 (2.5-4.0) gm/dl Albumin/Globulin Ratio 1.2 (0.9-2) Lipase 45 (11-82) U/L HCG, Qual Negative (Negative) Urine Color Urine Appearance (Clear) Urine pH (4.5-7.5) Ur Specific [place] (1.000-1.030) Urine Protein (Negative) Urine Glucose (UA) (Negative) Urine Ketones (Negative) Urine Blood (Negative) Urine Nitrite (Negative) Urine Bilirubin (Negative) Urine Urobilinogen (Negative) Ur Leukocyte Esterase (Negative) Urine WBC (Auto) (0-5) /hpf Urine RBC (Auto) (0-4) /hpf U Hyaline Cast (Auto) (0-5) /lpf U Epithel Cells (Auto) (0-5) /lpf Urine Bacteria (Auto) (Negative) Urine Crystals Calcium Oxalate Crystal (None Prsent) Urine Mucus (None Prsent) SARS-CoV-2, RNA, NAAT (NEGATIVE) 10/03/22 10/03/22 10/03/22 Range/Units 11:30 11:30 11:30 WBC (4.8-10.8) K/ul RBC (4.20-5.40) M/uL Hgb (12.0-16.0) g/dl Hct (37.0-47.0) % MCV (80.0-100.0) fL MCH (25.0-34.0) pg MCHC (32.0-36.0) g/dL RDW Std Deviation (36.4-46.3) fL RDW Coeff of Vaughn (11.5-14.5) % Plt Count (130-400) K/uL MPV (9.4-12.4) fL Immature Gran % (Auto) % Neut % (Auto) % Lymph % (Auto) % [place] % (Auto) % Eos % (Auto) % Baso % (Auto) % Neut # (Auto) (1.40-6.50) K/uL Lymph # (Auto) (1.2-3.4) K/uL [place] # (Auto) (0.11-0.59) K/uL Eos # (Auto) (0-0.50) K/uL Baso # (Auto) (0-0.2) K/uL Immature Gran # (Auto) (0.01-0.20) K/uL Sodium (136-145) mmol/L Potassium (3.5-5.1) mmol/L Chloride (98-107) mmol/L Carbon Dioxide (21-32) mmol/L Anion Gap (3-11) BUN (6-23) mg/dl Creatinine (0.6-1.2) mg/dl Est Cr Clr Drug Dosing ml/min Est GFR ( Amer) ml/min Est GFR (Non-Af Amer) ml/min BUN/Creatinine Ratio (10-20) Glucose (70-99(Fasting)) mg/dl Calcium (8.6-10.3) mg/dl Phosphorus (2.5-4.9) mg/dl Magnesium Cancelled (1.7-2.4) mg/dl Total Bilirubin (0.2-1.0) mg/dl AST (13-39) U/L ALT (7-52) U/L Alkaline Phosphatase (34-104) U/L Troponin I High Sens (0-14) pg/ml Total Protein (6.0-8.3) gm/dl Albumin (3.4-5.0) gm/dl Globulin (2.5-4.0) gm/dl Albumin/Globulin Ratio (0.9-2) Lipase (11-82) U/L HCG, Qual (Negative) Urine Color Dark Yellow Urine Appearance Cloudy A (Clear) Urine pH 6.0 (4.5-7.5) Ur Specific [place] 1.031 H (1.000-1.030) Urine Protein 2+ H (Negative) Urine Glucose (UA) Negative (Negative) Urine Ketones 4+ H (Negative) Urine Blood Trace H (Negative) Urine Nitrite Negative (Negative) Urine Bilirubin 2+ H (Negative) Urine Urobilinogen Negative (Negative) Ur Leukocyte Esterase 1+ H (Negative) Urine WBC (Auto) >30 H (0-5) /hpf Urine RBC (Auto) 0-4 (0-4) /hpf U Hyaline Cast (Auto) 1-5 (0-5) /lpf U Epithel Cells (Auto) >30 H (0-5) /lpf Urine Bacteria (Auto) 1+ H (Negative) Urine Crystals Not Reportable Calcium Oxalate Crystal Present A (None Prsent) Urine Mucus Present A (None Prsent) SARS-CoV-2, RNA, NAAT NEGATIVE (NEGATIVE) 10/03/22 Range/Units 11:30 WBC (4.8-10.8) K/ul RBC (4.20-5.40) M/uL Hgb (12.0-16.0) g/dl Hct (37.0-47.0) % MCV (80.0-100.0) fL MCH (25.0-34.0) pg MCHC (32.0-36.0) g/dL RDW Std Deviation (36.4-46.3) fL RDW Coeff of Vaughn (11.5-14.5) % Plt Count (130-400) K/uL MPV (9.4-12.4) fL Immature Gran % (Auto) % Neut % (Auto) % Lymph % (Auto) % [place] % (Auto) % Eos % (Auto) % Baso % (Auto) % Neut # (Auto) (1.40-6.50) K/uL Lymph # (Auto) (1.2-3.4) K/uL [place] # (Auto) (0.11-0.59) K/uL Eos # (Auto) (0-0.50) K/uL Baso # (Auto) (0-0.2) K/uL Immature Gran # (Auto) (0.01-0.20) K/uL Sodium (136-145) mmol/L Potassium (3.5-5.1) mmol/L Chloride (98-107) mmol/L Carbon Dioxide (21-32) mmol/L Anion Gap (3-11) BUN (6-23) mg/dl Creatinine (0.6-1.2) mg/dl Est Cr Clr Drug Dosing ml/min Est GFR ( Amer) ml/min Est GFR (Non-Af Amer) ml/min BUN/Creatinine Ratio (10-20) Glucose (70-99(Fasting)) mg/dl Calcium (8.6-10.3) mg/dl Phosphorus 2.9 (2.5-4.9) mg/dl Magnesium (1.7-2.4) mg/dl Total Bilirubin (0.2-1.0) mg/dl AST (13-39) U/L ALT (7-52) U/L Alkaline Phosphatase (34-104) U/L Troponin I High Sens (0-14) pg/ml Total Protein (6.0-8.3) gm/dl Albumin (3.4-5.0) gm/dl Globulin (2.5-4.0) gm/dl Albumin/Globulin Ratio (0.9-2) Lipase (11-82) U/L HCG, Qual (Negative) Urine Color Urine Appearance (Clear) Urine pH (4.5-7.5) Ur Specific [place] (1.000-1.030) Urine Protein (Negative) Urine Glucose (UA) (Negative) Urine Ketones (Negative) Urine Blood (Negative) Urine Nitrite (Negative) Urine Bilirubin (Negative) Urine Urobilinogen (Negative) Ur Leukocyte Esterase (Negative) Urine WBC (Auto) (0-5) /hpf Urine RBC (Auto) (0-4) /hpf U Hyaline Cast (Auto) (0-5) /lpf U Epithel Cells (Auto) (0-5) /lpf Urine Bacteria (Auto) (Negative) Urine Crystals Calcium Oxalate Crystal (None Prsent) Urine Mucus (None Prsent) SARS-CoV-2, RNA, NAAT (NEGATIVE) Administered Medications Discontinued Medications Albuterol (Albuterol Hfa 8 Gm Inhaler) 2 puffs INH NOW ONE Stop: 10/03/22 11:25 Last Admin: 10/03/22 12:23 Dose: 2 puffs Documented By: NGUYỄN Dicyclomine HCl (Dicyclomine Hcl 10 Mg Cap) 10 mg PO NOW ONE Stop: 10/03/22 14:59 Last Admin: 10/03/22 15:30 Dose: 10 mg Documented By: [id number] Sodium Chloride (Nss 1000ml) 1,000 mls @ 999 mls/hr IV .Q1H1M MARCIO Stop: 10/03/22 12:30 Last Infusion: 10/03/22 13:18 Dose: 0 mls/hr Documented By: NGUYỄN Admin: 10/03/22 11:39 Dose: 999 mls/hr Documented By: MES Famotidine (Pepcid 20mg Iv Push) 20 mg in 5 mls @ 2.5 mls/min IV NOW STA Stop: 10/03/22 11:24 Last Admin: 10/03/22 12:22 Dose: 2.5 mls/min Documented By: NGUYỄN Potassium Chloride (K Shant / Wtr) 10 meq in 100 mls @ 100 mls/hr IV ONE ONE; Protocol Stop: 10/03/22 14:14 Last Infusion: 10/03/22 14:47 Dose: 0 mls/hr Documented By: NGUYỄN Admin: 10/03/22 13:40 Dose: 100 mls/hr Documented By: KMO Sodium Chloride (Nss 1000ml) 1,000 mls @ 999 mls/hr IV .Q1H1M ONE Stop: 10/03/22 14:49 Last Infusion: 10/03/22 16:14 Dose: 0 mls/hr Documented By: [id number] Admin: 10/03/22 14:08 Dose: 999 mls/hr Documented By: YESSICA Ceftriaxone Sodium (Rocephin) 2,000 mg in 70 mls @ 140 mls/hr IV NOW STA Stop: 10/03/22 15:26 Last Infusion: 10/03/22 16:14 Dose: 0 mls/hr Documented By: [id number] Admin: 10/03/22 15:33 Dose: 140 mls/hr Documented By: [id number] Ioversol (Optiray 350 100ml) 90 ml IV ONCE ONE Stop: 10/03/22 14:21 Last Admin: 10/03/22 14:15 Dose: 90 ml Documented By: BRIELLE Metoclopramide HCl (Metoclopramide Hcl Inj 5 Mg/Ml 2 Ml Vial) 5 mg IV ONE ONE Stop: 10/03/22 11:24 Last Admin: 10/03/22 12:23 Dose: 5 mg Documented By: NGUYỄN Potassium Chloride (Potassium Chloride Crtab 20 Meq Tabcr) 40 meq PO NOW STA Stop: 10/03/22 16:15 Last Admin: 10/03/22 17:05 Dose: 40 meq Documented By: [id number] Imaging Data Radiologist's Impression: Abdomen/Pelvis CT 10/03/22 11:[address] WITH IV CONTRAST CT DOSE: 273.62 mGy.cm HISTORY: Acute nausea with vomiting Vomiting TECHNIQUE: Multiaxial CT images of the abdomen and pelvis were performed following the IV administration of 90 cc of Optiray, A dose lowering technique was utilized adhering to the principles of ALARA. COMPARISON STUDY: 09/27/2022 FINDINGS: The lung bases are clear. Focal fatty infiltration of the left hepatic lobe. The spleen, gallbladder, pancreas, and adrenal glands are within normal limits. There are a few subcentimeter hypodense foci within the right kidney, too small to characterize however favoring probable cysts. No hydronephrosis. Mild to moderate colonic fecal retention. The appendix is air-filled and appears noninflamed. No bowel wall thickening or obstruction. The pelvic organs are unremarkable. Trace free pelvic fluid is likely physiologic. Small to moderate posterior disc osteophyte complex formations at the L4-L5 and L5-S1 levels. No suspicious lytic or blastic osseous lesions. IMPRESSION: 1. No acute intra-abdominal or intrapelvic abnormality. 2. No bowel obstruction or bowel wall thickening. 3. Normal appendix. 4. Trace likely physiologic free pelvic fluid. ACT 112: Negative or not required by law. The above report was generated using voice recognition software. It may contain grammatical, syntax or spelling errors. Electronically signed by: Tony Yip M.D. 10/03/2022 2:32 PM Discharge Plan Visit Data Chief Complaint: Dehydration Stated Complaint: DRY HEEVES, POSSIBLE DEHYRATION ED Provider: Carlos Manuel Marley Discharge Problem: Hypokalemia, Dehydration, Abdominal pain, Nausea & vomiting Patient Disposition: Admitted As Inpatient Discharge Instructions Interventions: ED Discharge Assessment Last Done: 10/03/22 18:30 Forms Stand Alone Forms: [employer] Prescriptions Prescriptions: No Action buspirone 5 mg tablet 5 mg PO BID sennosides [senna] 8.6 mg Tablet 8.6 mg PO HS PRN (Reason: Constipation) trazodone 50 mg Tablet 50 mg PO HS Spiriva Respimat 1.25 mcg/actuation mist 1.25 mcg INHALATION DAILY epinephrine 0.3 mg/0.3 mL auto-injector 0.3 ml IM BID MDD 2 PRN (Reason: severe food egg allergy) acetaminophen [Tylenol] 325 mg Tablet 650 mg PO Q6 PRN (Reason: Pain) albuterol sulfate 90 mcg/actuation HFA aerosol inhaler 2 puff INHALATION QID montelukast 10 mg tablet 10 mg PO HS Ensure Liquid 1 ea PO TID risperidone [Risperdal] 3 mg Tablet 3 mg PO BID famotidine 20 mg Tablet 20 mg PO BID hydroxyzine pamoate 25 mg Capsule 25 mg PO BID PRN (Reason: Abdominal Discomfort) escitalopram oxalate 5 mg Tablet 5 mg PO DAILY zinc oxide 20 % Ointment 1 applic TOPICAL BID Rx Instructions: APPLY TO [facility] Referrals Referrals: Yaa Cueto MD [Primary Care Provider] -
[2022-10-03 12:14] LABS: Albumin Globulin Ratio 1.2 (0.9-2); Albumin Level 4.2 gm/dl (3.4-5.0); BUN Creatinine Ratio 15.6 (10-20); Bilirubin,Total 0.9 mg/dl (0.2-1.0); Calcium 9.8 mg/dl (8.6-10.3); Creatinine Clr Calc Pharmacy 87.5 ml/min; Est GFR (African American) 111.2 ml/min; Est GFR (Non-African American) 95.9 ml/min; Globulin 3.6 gm/dl (2.5-4.0); Potassium 2.9 mmol/L (3.5-5.1); Total Protein 7.8 gm/dl (6.0-8.3)
[2022-10-03 12:20] LABS: Troponin I High Sensitivity 3.4 pg/ml (0-14)
[2022-10-03 12:38] LABS: Appearance Urine Cloudy (Clear); Bacteria Urine Automated 1+ (Negative); Blood Urine Trace (Negative); Color Urine Dark Yellow; Epithelial Cell Urine Auto >30 /lpf (0-5); Glucose Urine UA Negative (Negative); Ketones Urine 4+ (Negative); Leukocyte Esterase Urine 1+ (Negative); Nitrite Urine Negative (Negative); Protein Urine 2+ (Negative); Specific Gravity Urine 1.031 (1.000-1.030); Urobilinogen Urine Negative (Negative); WBC Urine Automated >30 /hpf (0-5)
[2022-10-03 12:42] LABS: Bilirubin Urine 2+ (Negative)
[2022-10-03 13:02] LABS: Pregnancy Test, Serum Negative (Negative)
[2022-10-03 13:11] LABS: Calcium Oxalate Crystals Urine Present (None Prsent); Mucus Urine Present (None Prsent); RBC Urine Automated 0-4 /hpf (0-4)
[2022-10-03] MEDS ORDERED: POTASSIUM CHLORIDE / WTR 10 MEQ/100 ML PLCT IV ONE (13:15)
[2022-10-03] MEDS ORDERED: SODIUM CHLORIDE 0.9% 1000ML 1,000 ML IV ONE (13:49)
[2022-10-03] MEDS ORDERED: OPTIRAY 350 100ml IV ONE (14:20)
--- NOTE | 2022-10-03 14:33 | CT Scan Report ---
ABDOMEN AND PELVIS CT WITH IV CONTRAST CT DOSE: 273.62 mGy.cm HISTORY: Acute nausea with vomiting Vomiting TECHNIQUE: Multiaxial CT images of the abdomen and pelvis were performed following the IV administrat ion of 90 cc of Optiray, A dose lowering technique was utilized adhering to the principles of ALARA. COMPARISON STUDY: 09/27/2022 FINDINGS: The lung bases are clear. Focal fatty infiltration of the left hepatic lobe. The spleen, ga llbladder, pancreas, and adrenal glands are within normal limits. There are a few subcentimeter hypod ense foci within the right kidney, too small to characterize however favoring probable cysts. No hydr onephrosis. Mild to moderate colonic fecal retention. The appendix is air-filled and appears noninfla med. No bowel wall thickening or obstruction. The pelvic organs are unremarkable. Trace free pelvic f luid is likely physiologic. Small to moderate posterior disc osteophyte complex formations at the L4- L5 and L5-S1 levels. No suspicious lytic or blastic osseous lesions. IMPRESSION: 1. No acute intra-abdominal or intrapelvic abnormality. 2. No bowel obstruction or bowel wall thickening. 3. Normal appendix. 4. Trace likely physiologic free pelvic fluid. ACT 112: Negative or not required by law. The above report was generated using voice recognition software. It may contain grammatical, syntax o r spelling errors. Electronically signed by: Tony Yip M.D. 10/03/2022 2:32 PM
[2022-10-03] MEDS ORDERED: cefTRIAXone SODIUM 2,000 MG/70 ML BAG IV STA (14:57)
[2022-10-03] MEDS ORDERED: DICYCLOMINE HCL 10 MG CAP PO ONE (14:58)
--- NOTE | 2022-10-03 15:17 | Electrocardiogram Report ---
Test Reason : Blood Pressure : / mmHG Vent. Rate : 089 BPM Atrial Rate : 089 BPM P-R Int : 120 ms QRS Dur : 078 ms QT Int : 434 ms P-R-T Axes : 057 036 042 degrees QTc Int : 528 ms Normal sinus rhythm Prolonged QT Abnormal ECG When compared with ECG of 27-SEP-2022 12:11, Non-specific change in ST segment in Anterolateral leads Nonspecific T wave abnormality now evident in Anterior leads QT has lengthened Confirmed by Prasanna Cabrera ([id number]) on 10/03/2022 3:16:35 PM Referred By: REFERRED SELF Confirmed By:Prasanna Cabrera
--- NOTE | 2022-10-03 15:43 | History & Physical Report ---
Date of Service October 03, 2022 Assessment & Plan (1) Starvation ketoacidosis: Plan: This is a 41 y/o female with a PMH of PCOS, asthma, IBS, depression, anxiety, and recent paranoia who presented to the ED from [place] for the third visit this month with dehydration and electrolyte abnormalities related to refusal to eat or drink water due to underlying paranoia that someone is trying to poison her ([facility] staff, her family). Per outpatient records, hx of anxiety and depression but no documentation of prior psychosis until recent symptoms, which seemed to start after COVID in May.Per sign out, pt is currently at [place] [facility] on a 303. - Admit to med telemetry due to hypokalemia and prolonged QT - at risk for potential arrhythmia - Psychiatry consultation - for now, reordered meds based on the list from [place] [facility] but unclear how compliant pt has been with these, combination may be contributing to prolonged QT - Replete electrolytes - Repeat BMP, Mg, Phos in AM - Encourage oral intake as able - IVF overnight for rehydration - Discussed with nursing staff in the ED - pt will need a one-to-one on the floor as has required in the ED (2) Dehydration: (3) Hypokalemia: (4) Delusional disorder, somatic type: (5) Paranoia: Plan Pt seen and evaluated with collaborating physician, Dr. Perez. Plan of care discussed and as outlined above. Code Status: Full Code Delfin Heath PA-C History of Present Illness Chief Complaint: Not eating or drinking, stomach pain Primary Care Provider: Yaa Cueto This is a 41 y/o female with a PMH of asthma, PCOS, migraines, anxiety, depression, and recent paranoia who presents to the ED today from [place], where she is currently inpatient due to acute paranoia, for dehydration. History obtained from the patient but also from her medical records from [facility] and from [place] as it is unclear how reliable pt is as a historian. Per the notes, she presented to the ED on 09/05/22, brought by her aunt, with paranoia and abdominal pain. Per patient, she has been having ongoing issues with lower abdominal pain and getting short of breath with eating for the last few months. Symptoms seemed to start after having COVID in May when she became obsessively concerned about her breathing and feeling short of breath. She was evaluated multiple times and ultimately diagnosed with mild asthma. In July, she became paranoid that she was being poisoned through her food or drinks, initially with COVID contaminants but more recently with rat poison. Pt feels like she will get flushed, short of breath, and sometimes will have palpitations when she eats, particularly solid foods. Initially, she reports that she was tolerating liquids, including Ensure, but that her symptoms worsened which was why her aunt brought her to the ER, which resulted in the admission to [facility]. Now, she is concerned that the staff at [facility] are trying to poison her so she has been refusing to eat for the last several days.She was admitted to [facility] from 09/19-09/21/22 for starvation ketoacidosis with electrolyte abnormalities including hypernatremia and hypokalemia. These were replaced and she was evaluated by psychiatry here - Effexor was discontinued and sublingual Risperdal was started. She was discharged back to [place] on 09/21/22. On 09/27/22, she was seen again in the ED here for nausea and chest pain. Workup in the ED was unremarkable so she was discharged back to [place] [facility] again. The patient came back to the ED today due to ongoing issues with refusing to eat or drink and concern for dehydration. She reports that any time she eats anything from [facility], she feels bloated, which she thinks is related to something they're putting in her food, so she is refusing to take much by mouth. Allergies Allergy/AdvReac Type Severity Reaction Status Date / Time bee venom protein (honey bee) Allergy Severe SEVERE Verified 09/19/22 15:50 SWELLING AT [place] egg Allergy Severe Anaphylaxis Verified 09/19/22 15:50 methylprednisolone Allergy Unknown HIVES Verified 09/19/22 15:50 WHILE TAKING MEDROL DOSE PACK & ?? INHALER Home Medications Medication Instructions Recorded Confirmed Type acetaminophen 325 mg tablet 650 mg PO Q6 PRN Pain 09/08/22 10/03/22 History (Tylenol) albuterol sulfate 90 mcg/actuation 2 puff inhalation QID 09/08/22 10/03/22 History aerosol inhaler buspirone 5 mg tablet 5 mg PO BID 09/08/22 10/03/22 History epinephrine 0.3 mg/0.3 mL 0.3 ml IM BID PRN severe food egg 09/08/22 10/03/22 History injection, auto-injector allergy food supplemt, lactose-reduced 1 ea PO TID 09/08/22 10/03/22 History (Ensure oral liquid) montelukast 10 mg tablet 10 mg PO HS 09/08/22 10/03/22 History sennosides 8.6 mg tablet (senna) 8.6 mg PO HS PRN Constipation 09/08/22 10/03/22 History tiotropium bromide 1.25 1.25 mcg inhalation DAILY 09/08/22 10/03/22 History mcg/actuation mist for inhalation (Spiriva Respimat) trazodone 50 mg tablet 50 mg PO HS 09/08/22 10/03/22 History zinc oxide 20 % topical ointment 1 applic topical BID 09/19/22 10/03/22 History escitalopram oxalate 5 mg tablet 5 mg PO DAILY 10/03/22 10/03/22 History famotidine 20 mg tablet 20 mg PO BID 10/03/22 10/03/22 History hydroxyzine pamoate 25 mg capsule 25 mg PO BID PRN Abdominal 10/03/22 10/03/22 History Discomfort risperidone 3 mg tablet (Risperdal) 3 mg PO BID 10/03/22 10/03/22 History Past Med/Surg History Medical History Anxiety Depression Migraines Mild intermittent asthma Paranoia PCOS (polycystic ovarian syndrome) Surgical History No pertinent past surgical history Family History Mother Breast cancer Lung cancer Father Colorectal cancer Social History Smoking Status: Never smoker Hx Alcohol Use: No Hx Substance Use: No Preferred Language: Mohawk Communication Ability: Effective 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 Perez's note for details of the PE Results & Data Results & Data Vital Signs (Past 12 Hours) Vital Signs Temp Pulse Pulse Resp BP BP Pulse Ox 10/03/22 13:00 94 H 18 115/89 100 10/03/22 12:46 89 10/03/22 11:38 100 10/03/22 11:21 95 H 111/91 98 10/03/22 11:14 37.2 C 98 H 19 111/91 96 O2 Del Method 10/03/22 13:00 Room Air 10/03/22 12:46 10/03/22 11:38 Room Air 10/03/22 11:21 Room Air 10/03/22 11:14 Room Air Laboratory Results Laboratory Results - last 24 hr 10/03/22 10/03/22 10/03/22 11:30 11:30 11:30 WBC 8.89 RBC 5.37 Hgb 15.8 Hct 46.2 MCV 86.0 MCH 29.4 MCHC 34.2 RDW Std Deviation 45.5 RDW Coeff of Vaughn 14.6 H Plt Count 262 MPV 12.1 Immature Gran % (Auto) 0.2 Neut % (Auto) 87.9 Lymph % (Auto) 5.8 [place] % (Auto) 5.7 Eos % (Auto) 0.0 Baso % (Auto) 0.4 Neut # (Auto) 7.80 H Lymph # (Auto) 0.52 L [place] # (Auto) 0.51 Eos # (Auto) 0.00 Baso # (Auto) 0.04 Immature Gran # (Auto) 0.02 Sodium 143 Potassium 2.9 L Chloride 103 Carbon Dioxide 23 Anion Gap 17 H BUN 12 Creatinine 0.77 Est Cr Clr Drug Dosing 87.5 Est GFR ( Amer) 111.2 Est GFR (Non-Af Amer) 95.9 BUN/Creatinine Ratio 15.6 Glucose 113 H Calcium 9.8 Magnesium 2.0 Total Bilirubin 0.9 AST 18 ALT 19 Alkaline Phosphatase 58 Troponin I High Sens 3.4 Total Protein 7.8 Albumin 4.2 Globulin 3.6 Albumin/Globulin Ratio 1.2 Lipase 45 HCG, Qual Negative Urine Color Urine Appearance Urine pH Ur Specific [place] Urine Protein Urine Glucose (UA) Urine Ketones Urine Blood Urine Nitrite Urine Bilirubin Urine Urobilinogen Ur Leukocyte Esterase Urine WBC (Auto) Urine RBC (Auto) U Hyaline Cast (Auto) U Epithel Cells (Auto) Urine Bacteria (Auto) Urine Crystals Calcium Oxalate Crystal Urine Mucus SARS-CoV-2, RNA, NAAT 10/03/22 10/03/22 10/03/22 11:30 11:30 11:30 WBC RBC Hgb Hct MCV MCH MCHC RDW Std Deviation RDW Coeff of Vaugh[place] Plt Count MPV Immature Gran % (Auto) Neut % (Auto) Lymph % (Auto) [place] % (Auto) Eos % (Auto) Baso % (Auto) Neut # (Auto) Lymph # (Auto) [place] # (Auto) Eos # (Auto) Baso # (Auto) Immature Gran # (Auto) Sodium Potassium Chloride Carbon Dioxide Anion Gap BUN Creatinine Est Cr Clr Drug Dosing Est GFR ( Amer) Est GFR (Non-Af Amer) BUN/Creatinine Ratio Glucose Calcium Magnesium Cancelled Total Bilirubin AST ALT Alkaline Phosphatase Troponin I High Sens Total Protein Albumin Globulin Albumin/Globulin Ratio Lipase HCG, Qual Urine Color Dark Yellow Urine Appearance Cloudy A Urine pH 6.0 Ur Specific [place] 1.031 H Urine Protein 2+ H Urine Glucose (UA) Negative Urine Ketones 4+ H Urine Blood Trace H Urine Nitrite Negative Urine Bilirubin 2+ H Urine Urobilinogen Negative Ur Leukocyte Esterase 1+ H Urine WBC (Auto) >30 H Urine RBC (Auto) 0-4 U Hyaline Cast (Auto) 1-5 U Epithel Cells (Auto) >30 H Urine Bacteria (Auto) 1+ H Urine Crystals Not Reportable Calcium Oxalate Crystal Present A Urine Mucus Present A SARS-CoV-2, RNA, NAAT NEGATIVE Diagnostic Findings CT Abd/Pel 10/03/22 - IMPRESSION: 1. No acute intra-abdominal or intrapelvic abnormality. 2. No bowel obstruction or bowel wall thickening. 3. Normal appendix. 4. Trace likely physiologic free pelvic fluid. Medications Administered Discontinued Medications Albuterol (Albuterol Hfa 8 Gm Inhaler) 2 puffs INH NOW ONE Stop: 10/03/22 11:25 Last Admin: 10/03/22 12:23 Dose: 2 puffs Documented By: AP Dicyclomine HCl (Dicyclomine Hcl 10 Mg Cap) 10 mg PO NOW ONE Stop: 10/03/22 14:59 Last Admin: 10/03/22 15:30 Dose: 10 mg Documented By: [id number] Sodium Chloride (Nss 1000ml) 1,000 mls @ 999 mls/hr IV .Q1H1M MARCIO Stop: 10/03/22 12:30 Last Infusion: 10/03/22 13:18 Dose: 0 mls/hr Documented By: Admin: 10/03/22 11:39 Dose: 999 mls/hr Documented By: MES Famotidine (Pepcid 20mg Iv Push) 20 mg in 5 mls @ 2.5 mls/min IV NOW STA Stop: 10/03/22 11:24 Last Admin: 10/03/22 12:22 Dose: 2.5 mls/min Documented By: NGUYỄN Potassium Chloride (K Shant / Wtr) 10 meq in 100 mls @ 100 mls/hr IV ONE ONE; Protocol Stop: 10/03/22 14:14 Last Infusion: 10/03/22 14:47 Dose: 0 mls/hr Documented By: Admin: 10/03/22 13:40 Dose: 100 mls/hr Documented By: KMO Sodium Chloride (Nss 1000ml) 1,000 mls @ 999 mls/hr IV .Q1H1M ONE Stop: 10/03/22 14:49 Last Admin: 10/03/22 14:08 Dose: 999 mls/hr Documented By: KMO Ceftriaxone Sodium (Rocephin) 2,000 mg in 70 mls @ 140 mls/hr IV NOW STA Stop: 10/03/22 15:26 Last Admin: 10/03/22 15:33 Dose: 140 mls/hr Documented By: [id number] Ioversol (Optiray 350 100ml) 90 ml IV ONCE ONE Stop: 10/03/22 14:21 Last Admin: 10/03/22 14:15 Dose: 90 ml Documented By: BREulalia Metoclopramide HCl (Metoclopramide Hcl Inj 5 Mg/Ml 2 Ml Vial) 5 mg IV ONE ONE Stop: 10/03/22 11:24 Last Admin: 10/03/22 12:23 Dose: 5 mg Documented By: NGUYỄN Supervising Physician Co-Signing Physician Notes Attending addendum: The patient was seen and examined in emergency room She has a significant psychiatric disorder and was sent in from November dose with abdominal pain, inability to eat or drink and progressive weakness with paranoia She admits to have no appetite and also she cannot eat anything solid and she has been losing weight Has had this problem before and today her potassium was 2.9 with possible due to prolonged in the EKG On examination Very anxious Hemodynamically stable without tachycardia Chest-clear to auscultate bilaterally Heart-S1, [id number] Abdomen-soft, not distended, mildly tender in the epigastrium and bowel sound present Extremities-trace edema bilaterally DENTAL TREATMENT COORDINATOR-alert, awake and oriented x3. Moving all limbs equally and no focal sensory or motor deficit appreciated Admission labs, EKG and imaging studies reviewed Has significant psychiatric issue with paranoia Anorexia with electrolyte imbalance Abdominal pain and inability to swallow any solid food Will admit to MedSurg telemetry unit and supplement potassium electrolytes One-to-one sitter, psych evaluation Agree with assessment and plan as outlined above by MANOLO Duarte Dr
[2022-10-03] MEDS ORDERED: POTASSIUM CHLORIDE CRTAB 20 MEQ TABCR PO STA (16:14)
[2022-10-03] MEDS ORDERED: hydrOXYzine HCl 25 MG TAB PO PRN (19:10)
[2022-10-03] MEDS ORDERED: ACETAMINOPHEN 325 MG TAB PO PRN (19:10)
[2022-10-03] MEDS: D5NSS + 20MEQ KCL 20 MEQ/1,000 ML BAG IV SCH (19:15)
[2022-10-03] MEDS: ALBUTEROL HFA 8 GM INHALER INH SCH (19:37)
[2022-10-03] MEDS ORDERED: NON-FORMULARY MEDICATION (Food Supplemt, Lactose-Reduced [Ensure] Liquid) PO SCH (21:00)
[2022-10-03] MEDS: MONTELUKAST SODIUM 10 MG TABLET PO SCH (22:10)
[2022-10-03] MEDS: FAMOTIDINE 20 MG TAB PO SCH (22:11)
[2022-10-03] MEDS: busPIRone 5 MG TAB PO SCH (22:12)
[2022-10-03] MEDS: risperiDONE 3 MG TABLET PO SCH (22:12)
[2022-10-03] MEDS: traZODone HCL 50 MG TAB PO SCH (22:12)
[2022-10-04 06:33] LABS: BUN Creatinine Ratio 14.8 (10-20); Calcium 8.3 mg/dl (8.6-10.3); Creatinine Clr Calc Pharmacy 126.8 ml/min; Est GFR (African American) 135.8 ml/min; Est GFR (Non-African American) 117.2 ml/min; Magnesium 1.8 mg/dl (1.7-2.4); Phosphorus 2.8 mg/dl (2.5-4.9)
[2022-10-04 07:33] LABS: Basophils # (auto) 0.05 K/uL (0-0.2); Basophils % (auto) 0.9 %; Eosinophils # (auto) 0.06 K/uL (0-0.50); Hematocrit (blood only) 36.9 % (37.0-47.0); Hemoglobin 12.4 g/dl (12.0-16.0); Immature Granulocytes # (auto) 0.01 K/uL (0.01-0.20); Immature Granulocytes % (auto) 0.2 %; Lymphocytes # (auto) 1.34 K/uL (1.2-3.4); Lymphocytes % (auto) 23.1 %; Mean Corpuscular Hemoglobin 30.1 pg (25.0-34.0); Mean Corpuscular Hgb Conc 33.6 g/dL (32.0-36.0); Mean Corpuscular Volume 89.6 fL (80.0-100.0); Mean Platelet Volume 12.1 fL (9.4-12.4); Monocytes # (auto) 0.55 K/uL (0.11-0.59); Monocytes % (auto) 9.5 %; Neutrophils # (auto) 3.79 K/uL (1.40-6.50); Neutrophils % (auto) 65.3 %; Platelet Count 174 K/uL (130-400); RDW Coefficient of Variation 14.8 % (11.5-14.5); RDW Standard Deviation 48.1 fL (36.4-46.3); Red Blood Count 4.12 M/uL (4.20-5.40)
[2022-10-04] MEDS: D5NSS + 20MEQ KCL 20 MEQ/1,000 ML BAG IV SCH (07:45)
[2022-10-04] MEDS: busPIRone 5 MG TAB PO SCH ×2 (09:39→21:35)
[2022-10-04] MEDS: FAMOTIDINE 20 MG TAB PO SCH ×2 (09:40→21:34)
[2022-10-04] MEDS: ESCITALOPRAM OXALATE 10 MG TAB PO SCH (09:40)
[2022-10-04] MEDS: risperiDONE 3 MG TABLET PO SCH ×2 (09:46→21:32)
[2022-10-04] MEDS: ALBUTEROL HFA 8 GM INHALER INH SCH ×4 (09:47→18:48)
[2022-10-04] MEDS: UMECLIDINIUM BROMIDE 62.5MCG/BLISTER 7 PUFFS/INHALER INH SCH (09:47)
[2022-10-04] MEDS ORDERED: POTASSIUM CHLORIDE CRTAB 20 MEQ TABCR PO STA (15:18)
--- NOTE | 2022-10-04 17:07 | Hospitalist Progress Note ---
Date of Service October 04, 2022 Assessment & Plan (1) Starvation ketoacidosis: (2) Dehydration: (3) Hypokalemia: Plan: This is a 41 y/o female with a PMH of PCOS, asthma, IBS, depression, anxiety, and recent paranoia who presented to the ED from [place] for the third visit this month with dehydration and electrolyte abnormalities related to refusal to eat or drink water due to underlying paranoia that someone is trying to poison her ([facility] staff, her family). Per outpatient records, hx of anxiety and depression but no documentation of prior psychosis until recent symptoms, which seemed to start after COVID in May.Per sign out, pt is currently at [place] on a 303. Mostly due to poor oral intake and starvation Potassium 2.9 on admission, K 3 today K replaced Continue IVF with potassium Continue encourage PO intake Continue monitor BMP (4) Delusional disorder, somatic type: (5) Paranoia: Plan: Denies any suicidal thought Continue 1 to 1 sitter Psych on board recommended a trial of thothixene 2 mg PO BID Continue escitalopram 5 mg PO daily and buspirone 5 mg PO BID as per psych Continue monitor closely QTC prolonged Will avoid QT prolong medication Check EKG in am DVT px SCD/ encourage to ambulate Code status Full code Admission and Anticipated Discharge Date Admission Date: October 03, 2022 Subjective Patient was seen and evaluated for follow-up of hyponatremia Lying in bed with no acute distress She said that she has not been eating or drink because of abdominal tenderness Denies any chest pain, palpitation, dizziness, shortness of breath. Review of Systems Review of Systems: All systems reviewed & are unremarkable except as noted in Subjective Physical Exam Physical Exam: General- No acute distress Head- atraumatic Eyes- PERRL, EOMI, ENT- oropharynx clear Neck- supple, no JVD Lungs- clear to auscultation Heart- regular rhythm; no murmur Abdomen- normal bowel sounds, soft Extremities- no calf tenderness Neuro- alert, oriented x 3; PERRL, EOMI; no facial palsy; no dysarthria Skin- warm & dry Results & Data Results & Data Vital Signs (Past 12 Hours) Vital Signs Pulse Pulse Resp BP BP Pulse Ox O2 Del Method 10/04/22 15:00 72 16 103/68 97 03/28/23 12:30 84 19 10/04/22 12:00 74 17 10/04/22 12:00 109/70 10/04/22 11:30 90 19 10/04/22 11:00 74 18 10/04/22 11:00 96/62 L 10/04/22 10:30 81 18 10/04/22 10:00 88 16 10/04/22 10:00 108/92 10/04/22 09:30 91 H 16 10/04/22 09:00 62 14 10/04/22 09:00 87/61 L 10/04/22 08:30 62 14 10/04/22 08:00 80 15 10/04/22 08:00 77/58 L 10/04/22 07:30 66 17 10/04/22 07:00 60 13 10/04/22 07:00 80/61 L 10/04/22 12:00 89 16 109/70 96 10/04/22 10:00 97 H 17 108/92 97 Room Air 10/04/22 09:00 61 14 87/61 L Room Air 10/04/22 07:00 64 14 82/61 L Room Air 10/04/22 06:58 64 10/04/22 06:00 66 14 82/57 L 10/04/22 06:01 60 15 82/57 L
--- NOTE | 2022-10-04 19:01 | Psychiatric Consultation ---
Date of Consultation October 04, 2022 Impression / Recommendations Impression 41 y/o F whose anxieties about potential repeat exposure to SARS-CoV-2 have ballooned into abbey somatic delusions that have had a severe impact on her ability to function and on her health - this is her second admission here dehydrated with electrolyte abnormalities. She has extremely poor insight. By history, there is no antecedent or precipitant identified other than her having contracted CoVID-19. Her current psychiatric medication doses are so low as to be unlikely to be of much benefit but aren't likely hurting anything. The most likely medication approach to be of value would be antipsychotic medication, although delusional disorders are not very responsive to medication. (1) Delusional disorder, somatic type: Present on Admission?: Yes Plan * trial of thothixene 2 mg PO BID * continue escitalopram 5 mg PO daily * continue buspirone 5 mg PO BID * offer small portions of packaged soft snack foods such as pudding, applesauce, or gelatin * offer meal replacement drinks (such as Ensure or Boost) or water, as pt tends to say juice makes her "bloated" * avoid getting caught in constantly addressing pt's repetitive fears and delusional beliefs, since these are not things she can be "talked out of". * avoid the temptation to frighten pt into eating and drinking; she knows she needs to, and her not doing so is not due to a lack of information about the health consequences. * in general, clear, concise information presented once or twice would be appropriate, then for repetitive questions or concerns refer pt back to what she's already been told. Psych History Identifying Data DEBBY GUILLEN is a 41-year-old F with a history of somatic delusional disorder, admitted to the ED on 10/03/2022 for dehydration. Consult is by the hospitalist service for treatment recommendations. Chief Complaint "I just can't eat what they try to feed me". History of Present Illness As part of my detailed review of the medicatl record, I read the following psychiatric liaison RN note: "Met with patient for initial psychiatric assessment. She is resting in bed, asking for "bottled water and some breakfast", when it is offered patient requesting staff to take a drink prior to her consuming it. She is disheveled and malodorous and reports not showering x 3 days. Patient appears weak and fine tremors noted. She was able to ambulate to the bathroom with assistance, gait unsteady. Patient currently is prescribed Buspar, Lexapro and Risperdal however noncompliant with Risperdal. She reports " I can't take risperdal or zyprexa, they don't sit well with me. I'm gassy. I'm like a zombie". Patient known to consult service from previous admission for similar symptoms. Patient was medically admitted from [facility], currently on a 303 commitment (expires 10/20/2022 @ 0911, copy on chart) and[facility]. She has been a patient there for several weeks related to delusional thinking, believes that food and fluids are poisoned." and the following ED physician note: * "This is a 41 y/o female with a PMH of asthma, PCOS, migraines, anxiety, depression, and recent paranoia who presents to the ED today from [facility], where she is currently inpatient due to acute paranoia, for dehydration. History obtained from the patient but also from her medical records from [facility] and from [facility] as it is unclear how reliable pt is as a historian. Per the notes, she presented to the ED on 09/05/22, brought by her aunt, with paranoia and abdominal pain. Per patient, she has been having ongoing issues with lower abdominal pain and getting short of breath with eating for the last few months. Symptoms seemed to start after having COVID in May when she became obsessively concerned about her breathing and feeling short of breath. She was evaluated multiple times and ultimately diagnosed with mild asthma. In July, she became paranoid that she was being poisoned through her food or drinks, initially with COVID contaminants but more recently with rat poison. Pt feels like she will get flushed, short of breath, and sometimes will have palpitations when she eats, particularly solid foods. Initially, she reports that she was tolerating liquids, including Ensure, but that her symptoms worsened which was why her aunt brought her to the ER, which resulted in the admission to [facility]. Now, she is concerned that the staff at [facility] are trying to poison her so she has been refusing to eat for the last several days.She was admitted to [facility] from 09/19-09/21/22 for starvation ketoacidosis with electrolyte abnormalities including hypernatremia and hypokalemia. These were replaced and she was evaluated by psychiatry here - Effexor was discontinued and sublingual Risperdal was started. She was discharged back to [facility] on 09/21/22. On 09/27/22, she was seen again in the ED here for nausea and chest pain. Workup in the ED was unremarkable so she was discharged back to [facility] again. The patient came back to the ED today due to ongoing issues with refusing to eat or drink and concern for dehydration. She reports that any time she eats anything from [facility], she feels bloated, which she thinks is related to something they're putting in her food, so she is refusing to take much by mouth." I last saw pt for a psychitric consultation 14 days ago when she was admitted for much the same set of problems. Her pt's aunt (an ED nurse) reported that pt had been functioning well, working as a remote customer loyalty representative, until she became ill with CoVID-19. At that time she became highly focused on her breathing (an evaluation for which found mild asthma) and started taking many ambulance trips to the ED for this (and being sent home with no findings of concern). She began to voice the fear that her food "might be contaminated with CoVID" by careless workers. She also announced that she "couldn't walk" and started asking for incontinence garments and refusing to get out of bed. Eventually, her incontinence in bed soaked all the way through a mattress. The fear about viral contamination of her food shifted to a broader concern about vague contamination with "something else" and eventually she began accusing the aunt of poisoning her food and water with rat poison. Pt currently does not tell me that she thinks anyone is poisoning her food or drinks but that there are a large number of things she can't eat and that she thinks there's something wrong with the water at [facility]. In fact, she has tended to refused even things she says she can eat and bottled water. She is preoccupied with the belief that she has severe lung disease and some sort of terrible, mysterious gut ailment due to which she becomes "gassy" or "bloated" as a result of consuming nearly anything and that this gassiness or bloating renders her incapable of breathing. She emphasizes multiple times that she's "not depressed", despite my repeatedly telling her that I think she's anxious and delusional but that I'm not particulalry concerned about depression. She is currently on a Part 303 commitment at [facility]. On exam, pt recognizes me from 2 weeks ago and starts speaking as if continuing the conversation from that day. She says she "could take that risperidone because it made me a zombie". She says she's hungry and thirsty but would like something like pudding or applesauce and that she'd like a meal replacement drink. Past Psychiatric History Previous Psych Admissions: current inpatient at [facility], 1 admission to [facility] in June 2022 Allergies Allergy/AdvReac Type Severity Reaction Status Date / Time bee venom protein (honey bee) Allergy Severe SEVERE Verified 09/19/22 15:50 SWELLING AT [place] [facility] egg Allergy Severe Anaphylaxis Verified 09/19/22 15:50 methylprednisolone Allergy Unknown HIVES Verified 09/19/22 15:50 WHILE TAKING MEDROL DOSE PACK & ?? INHALER Home Medications Medication Instructions Recorded Confirmed Type acetaminophen 325 mg tablet 650 mg PO Q6 PRN Pain 09/08/22 10/03/22 History (Tylenol) albuterol sulfate 90 mcg/actuation 2 puff inhalation QID 09/08/22 10/03/22 History aerosol inhaler buspirone 5 mg tablet 5 mg PO BID 09/08/22 10/03/22 History epinephrine 0.3 mg/0.3 mL 0.3 ml IM BID PRN severe food egg 09/08/22 10/03/22 History injection, auto-injector allergy food supplemt, lactose-reduced 1 ea PO TID 09/08/22 10/03/22 History (Ensure oral liquid) montelukast 10 mg tablet 10 mg PO HS 09/08/22 10/03/22 History sennosides 8.6 mg tablet (senna) 8.6 mg PO HS PRN Constipation 09/08/22 10/03/22 History tiotropium bromide 1.25 1.25 mcg inhalation DAILY 09/08/22 10/03/22 History mcg/actuation mist for inhalation (Spiriva Respimat) trazodone 50 mg tablet 50 mg PO HS 09/08/22 10/03/22 History zinc oxide 20 % topical ointment 1 applic topical BID 09/19/22 10/03/22 History escitalopram oxalate 5 mg tablet 5 mg PO DAILY 10/03/22 10/03/22 History famotidine 20 mg tablet 20 mg PO BID 10/03/22 10/03/22 History hydroxyzine pamoate 25 mg capsule 25 mg PO BID PRN Abdominal 10/03/22 10/03/22 History Discomfort risperidone 3 mg tablet (Risperdal) 3 mg PO BID 10/03/22 10/03/22 History Patient History Medical History Anxiety Depression Migraines Mild intermittent asthma Paranoia PCOS (polycystic ovarian syndrome) Surgical History No pertinent past surgical history Family History Mother Breast cancer Lung cancer Father Colorectal cancer Social History Smoking Status: Never smoker Hx Alcohol Use: No Hx Substance Use: No Preferred Language: Haitian Communication Ability: Effective Junk Removal Specialist Required: No Beliefs That Will Affect Care: None Current Living Situation: Rehab Current Living Situation Comment: [facility] Other Information That Helps Us Care for You: No Feels Safe at Home: Yes Safety Concerns: Feels Safe At This Time Assistive Devices: None Physical Exam Psychiatric: Orientation: alert, oriented to person, oriented to place, oriented to time and cooperative (superficially and passively) Apperance: appropriately dressed and appropriately groomed Eye Contact: good eye contact lies passively on a stretcher, moving little Speech: normal rate/rhythm/volume of speech affect bland, incongruous with the distressing content of her speech Mood: + anxious mood Thought Process: + circumstantial thought process, + looseness of associations and + perseveration Thought Content: + delusions Suicidal Thoughts: denies suicidal thoughts and denies suicidal plan Homicidal Thoughts: denies homicidal thoughts Hallucinations: no auditory hallucinations and no visual hallucinations Cognition: recent memory grossly intact, remote memory grossly intact, attention grossly intact and language grossly intact Estimated Intelligence: average estimated intelligence Insight: + severely impaired insight Judgment: + impaired judgement Vital Signs (Past 24 Hours): Last Vital Signs Temp 37.1 C 10/03/22 20:08 Pulse 77 10/04/22 18:50 Resp 16 10/04/22 18:00 BP 106/78 10/04/22 18:00 Pulse Ox 96 10/04/22 18:00 O2 Del Method Room Air 10/04/22 10:00 Review of Systems Psychiatric: as per Subjective / HPI Results & Data (PSY) Medications Administered Albuterol (Albuterol Hfa 8 Gm Inhaler) 2 puffs INH QIDR MARCIO Stop: 11/02/22 19:09 Last Admin: 10/04/22 18:48 Dose: 2 puffs Documented By: Admin: 10/04/22 14:34 Dose: 2 puffs Documented By: Admin: 10/04/22 12:36 Dose: Not Given Documented By: Admin: 10/04/22 09:47 Dose: 2 puffs Documented By: Admin: 10/03/22 19:37 Dose: 2 puffs Documented By: [id number] Buspirone HCl (Buspirone 5 Mg Tab) 5 mg PO BID MARCIO Stop: 11/02/22 20:59 Last Admin: 10/04/22 09:39 Dose: 5 mg Documented By: Admin: 10/03/22 22:12 Dose: 5 mg Documented By: [id number] Escitalopram Oxalate (Escitalopram Oxalate 10 Mg Tab) 5 mg PO DAILY MARICO Stop: 11/03/22 08:59 Last Admin: 10/04/22 09:40 Dose: 5 mg Documented By: MAICOL Famotidine (Famotidine 20 Mg Tab) 20 mg PO BID MARCIO Stop: 11/02/22 20:59 Last Admin: 10/04/22 09:40 Dose: 20 mg Documented By: Admin: 10/03/22 22:11 Dose: 20 mg Documented By: [id number] Potassium Chloride/Dextrose/Sod Cl (D5nss + 20meq Kcl) 20 meq in 1,000 mls @ 80 mls/hr IV .[id number] MARCIO Stop: 10/04/22 19:44 Last Admin: 10/04/22 07:45 Dose: 80 mls/hr Documented By: Infusion: 10/04/22 07:45 Dose: 80 mls/hr Documented By: Admin: 10/03/22 19:15 Dose: 80 mls/hr Documented By: [id number] Montelukast Sodium (Montelukast Sodium 10 Mg Tablet) 10 mg PO HS MARCIO Stop: 11/02/22 20:59 Last Admin: 10/03/22 22:10 Dose: 10 mg Documented By: [id number] Risperidone (Risperidone 3 Mg Tablet) 3 mg PO BID MARCIO Stop: 11/02/22 20:59 Last Admin: 10/04/22 09:46 Dose: Not Given Documented By: Admin: 10/03/22 22:12 Dose: Not Given Documented By: [id number] Trazodone HCl (Trazodone Hcl 50 Mg Tab) 50 mg PO HS MARCIO Stop: 11/02/22 20:59 Last Admin: 10/03/22 22:12 Dose: Not Given Documented By: [id number] Umeclidinium [place] (Umeclidinium [place] 62.5mcg/Blister 7 Puffs/Inhaler) 1 puffs INH DAILY MARCIO Stop: 11/03/22 08:59 Last Admin: 10/04/22 09:47 Dose: 1 puffs Documented By: MAICOL Coding Level of Care Code 82408 IN/OBS CONSULT LVL 4,60M Diagnoses Delusional disorder, somatic type F22 Time Spent (min) 66
[2022-10-04] MEDS: traZODone HCL 50 MG TAB PO SCH (21:32)
[2022-10-04] MEDS: MONTELUKAST SODIUM 10 MG TABLET PO SCH (21:34)
[2022-10-05] MEDS: ALBUTEROL HFA 8 GM INHALER INH SCH ×4 (06:08→19:47)
[2022-10-05] MEDS: risperiDONE 3 MG TABLET PO SCH ×2 (07:30→19:52)
[2022-10-05] MEDS: UMECLIDINIUM BROMIDE 62.5MCG/BLISTER 7 PUFFS/INHALER INH SCH (07:31)
[2022-10-05] MEDS: ESCITALOPRAM OXALATE 10 MG TAB PO SCH (07:32)
[2022-10-05] MEDS: busPIRone 5 MG TAB PO SCH ×2 (07:34→19:54)
[2022-10-05] MEDS: FAMOTIDINE 20 MG TAB PO SCH ×2 (07:34→19:52)
[2022-10-05 09:56] LABS: Calcium 8.5 mg/dl (8.6-10.3); Creatinine Clr Calc Pharmacy 136.9 ml/min; Est GFR (African American) 139.3 ml/min; Est GFR (Non-African American) 120.2 ml/min; Potassium 3.6 mmol/L (3.5-5.1)
[2022-10-05] MEDS ORDERED: SIMETHICONE 40 MG/0.6 ML 30ML PO PRN (12:04)
[2022-10-05] MEDS ORDERED: ALBUTEROL HFA 8 GM INHALER INH PRN (12:06)
[2022-10-05] MEDS: SIMETHICONE 80 MG CHEW PO PRN (13:03)
--- NOTE | 2022-10-05 13:13 | Hospitalist Progress Note ---
Date of Service October 05, 2022 Assessment & Plan (1) Starvation ketoacidosis: (2) Dehydration: (3) Hypokalemia: Plan: This is a 41 y/o female with a PMH of PCOS, asthma, IBS, depression, anxiety, and recent paranoia who presented to the ED from [facility] for the third visit this month with dehydration and electrolyte abnormalities related to refusal to eat or drink water due to underlying paranoia that someone is trying to poison her ([facility] staff, her family). Per outpatient records, hx of anxiety and depression but no documentation of prior psychosis until recent symptoms, which seemed to start after COVID in May.Per sign out, pt is currently at [facility] on a 303. Mostly due to poor oral intake and starvation Potassium 2.9 on admission, K 3.6 today K replace and monitor Received IVF with potassium Electrolytes now normal Continue encourage PO intake (4) Delusional disorder, somatic type: (5) Paranoia: Plan: Denies any suicidal thought Continue 1 to 1 sitter Psychiatry on board recommended a trial of thiothixene 1 mg PO BID - discussed over the phone in detail Continue escitalopram 5 mg PO daily and buspirone 5 mg PO BID as per psych Continue monitor closely QTC prolonged Will avoid QT prolong medication Re-checked EKG - QT shortened Abnormal UA on admission, poor sample UA re-checked today - normal, not c/w UTI DVT px SCD/ encourage to ambulate Code status Full code Admission and Anticipated Discharge Date Admission Date: October 03, 2022 Subjective Patient seen in follow up of dehydration, paranoia Sitting up in bed in no acute distress, 1:1 sitter present Had a large BM Still feels somewhat bloated but better Denies any chest pain, palpitation, dizziness, shortness of breath. She has bottled water next to her and drank about a half, she had some jello Pre-packaged food encouraged Discussed trying gatorade, more water and walking. She was in agreement. Discussed with RN. Also started on a new med by psychiatry. Discussed w/ psychiatry in detail, ok to DC back to [facility]. Also discussed with CM. Review of Systems Review of Systems: All systems reviewed & are unremarkable except as noted in Subjective Physical Exam Physical Exam: General- No acute distress Head- at raumatic Eyes- PER RL, EOMI, ENT- elsy pharynx clear Neck - supple, no JVD L ungs- clear to aus cultation Heart- r egular rhythm; no murmur Abdomen- no rmal bowel sounds, soft Extremities- moves extremities Neuro- alert, sade ented x 3; PERRL, EOMI; no facial pa lsy; no dysarthria , moves extremitie s Skin- warm & dry Results & Data Results & Data Vital Signs (Past 12 Hours) Vital Signs Temp Pulse Pulse Resp BP Pulse Ox O2 Del Method 10/05/22 11:09 36.7 C 82 20 100/69 99 Room Air 10/05/22 07:01 64 10/05/22 07:00 37 C 70 20 103/71 99 Room Air 10/05/22 03:49 36.4 C L 65 20 95/67 L 100 Room Air Laboratory Results 10/05/22 Range/Units 07:52 Sodium 141 (136-145) mmol/L Potassium 3.6 (3.5-5.1) mmol/L Chloride 107 (98-107) mmol/L Carbon Dioxide 27 (21-32) mmol/L Anion Gap 7 (3-11) BUN 4 L (6-23) mg/dl Creatinine 0.50 L (0.6-1.2) mg/dl Est Cr Clr Drug Dosing 136.9 ml/min Est GFR ( Amer) 139.3 ml/min Est GFR (Non-Af Amer) 120.2 ml/min BUN/Creatinine Ratio 8.0 L (10-20) Glucose 82 (70-99(Fasting)) mg/dl Calcium 8.5 L (8.6-10.3) mg/dl Medications Administered Current Inpatient Medications Acetaminophen (Acetaminophen 325 Mg Tab) 650 mg PO Q6 PRN PRN Reason: Pain Stop: 11/02/22 19:09 Albuterol (Albuterol Hfa 8 Gm Inhaler) 2 puffs INH QIDR MARCIO Stop: 11/02/22 19:09 Last Admin: 10/05/22 11:11 Dose: 2 puffs Albuterol (Albuterol Hfa 8 Gm Inhaler) 2 puffs INH Q4 PRN PRN Reason: Shortness Of Breath Stop: 11/04/22 12:05 Buspirone HCl (Buspirone 5 Mg Tab) 5 mg PO BID MARCIO Stop: 11/02/22 20:59 Last Admin: 10/05/22 07:34 Dose: 5 mg Escitalopram Oxalate (Escitalopram Oxalate 10 Mg Tab) 5 mg PO DAILY MARCIO Stop: 11/03/22 08:59 Last Admin: 10/05/22 07:32 Dose: 5 mg Famotidine (Famotidine 20 Mg Tab) 20 mg PO BID MARCIO Stop: 11/02/22 20:59 Last Admin: 10/05/22 07:34 Dose: 20 mg Hydroxyzine HCl (Hydroxyzine Hcl 25 Mg Tab) 25 mg PO BID PRN PRN Reason: Abdominal Discomfort Stop: 11/02/22 19:09 Montelukast Sodium (Montelukast Sodium 10 Mg Tablet) 10 mg PO HS MRACIO Stop: 11/02/22 20:59 Last Admin: 10/04/22 21:34 Dose: 10 mg Risperidone (Risperidone 3 Mg Tablet) 3 mg PO BID MARCIO Stop: 11/02/22 20:59 Last Admin: 10/05/22 07:30 Dose: Not Given Simethicone (Simethicone 80 Mg Chew) 80 mg PO TID PRN PRN Reason: Gas or Constipation Stop: 11/04/22 12:20 Last Admin: 10/05/22 13:03 Dose: 80 mg Trazodone HCl (Trazodone Hcl 50 Mg Tab) 50 mg PO HS MARCIO Stop: 11/02/22 20:59 Last Admin: 10/04/22 21:32 Dose: Not Given Umeclidinium [place] (Umeclidinium [place] 62.5mcg/Blister 7 Puffs/Inhaler) 1 puffs INH DAILY MARCIO Stop: 11/03/22 08:59 Last Admin: 10/05/22 07:31 Dose: 1 puffs
--- NOTE | 2022-10-05 13:47 | Electrocardiogram Report ---
Test Reason : Blood Pressure : / mmHG Vent. Rate : 066 BPM Atrial Rate : 066 BPM P-R Int : 126 ms QRS Dur : 074 ms QT Int : 422 ms P-R-T Axes : 033 025 029 degrees QTc Int : 442 ms Normal sinus rhythm Normal ECG When compared with ECG of 03-OCT-2022 12:27, QT has shortened Confirmed by Prasanna Cabrera ([id number]) on 10/05/2022 1:46:46 PM Referred By: REFERRED SELF Confirmed By:Prasanna Cabrera
[2022-10-05] MEDS: THIOTHIXENE 1 MG CAP PO SCH ×2 (14:28→19:54)
[2022-10-05 15:25] LABS: Appearance Urine Clear (Clear); Bilirubin Urine Negative (Negative); Blood Urine Negative (Negative); Color Urine Yellow; Glucose Urine UA Negative (Negative); Ketones Urine 1+ (Negative); Leukocyte Esterase Urine Trace (Negative); Nitrite Urine Negative (Negative); Protein Urine Negative (Negative); Specific Gravity Urine 1.013 (1.000-1.030); Urobilinogen Urine Negative (Negative); pH Urine 5.5 (4.5-7.5)
[2022-10-05 15:42] LABS: Cast Urine Automated 0 /lpf (0-5); Epithelial Cell Urine Auto 0-5 /lpf (0-5); RBC Urine Automated 0-4 /hpf (0-4)
[2022-10-05 15:43] LABS: Bacteria Urine Automated Negative (Negative)
[2022-10-05] MEDS: traZODone HCL 50 MG TAB PO SCH (19:51)
[2022-10-05] MEDS: MONTELUKAST SODIUM 10 MG TABLET PO SCH (19:54)
[2022-10-06] MEDS: ALBUTEROL HFA 8 GM INHALER INH SCH ×4 (07:08→19:24)
[2022-10-06] MEDS: UMECLIDINIUM BROMIDE 62.5MCG/BLISTER 7 PUFFS/INHALER INH SCH (09:10)
[2022-10-06] MEDS: risperiDONE 3 MG TABLET PO SCH ×2 (09:12→21:20)
[2022-10-06] MEDS: THIOTHIXENE 1 MG CAP PO SCH ×2 (09:12→21:21)
[2022-10-06] MEDS: FAMOTIDINE 20 MG TAB PO SCH ×2 (09:13→21:23)
[2022-10-06] MEDS: busPIRone 5 MG TAB PO SCH ×2 (09:13→21:23)
[2022-10-06] MEDS: ESCITALOPRAM OXALATE 10 MG TAB PO SCH (09:14)
--- NOTE | 2022-10-06 11:36 | Hospitalist Progress Note ---
Date of Service October 06, 2022 Assessment & Plan (1) Starvation ketoacidosis: (2) Dehydration: (3) Hypokalemia: Plan: This is a 41 y/o female with a PMH of PCOS, asthma, IBS, depression, anxiety, and recent paranoia who presented to the ED from [facility] for the third visit this month with dehydration and electrolyte abnormalities related to refusal to eat or drink water due to underlying paranoia that someone is trying to poison her ([facility] staff, her family). Per outpatient records, hx of anxiety and depression but no documentation of prior psychosis until recent symptoms, which seemed to start after COVID in May.Per sign out, pt is currently at [facility] on a 303. Mostly due to poor oral intake and starvation Potassium 2.9 on admission, K 3.5 today K replace and monitor Received IVF with potassium on admission Electrolytes now normal Continue to encourage PO intake (4) Delusional disorder, somatic type: (5) Paranoia: Plan: Denies any suicidal thought Continue 1 to 1 sitter Psychiatry on board recommended a trial of thiothixene 1 mg PO BID - discussed over the phone in detail and started the med Continue escitalopram 5 mg PO daily and buspirone 5 mg PO BID as per psych Continue monitor closely QTC prolonged Will avoid QT prolong medication Re-checked EKG - QT shortened Abnormal UA on admission, poor sample UA re-checked - normal, not c/w UTI DVT px SCD/ encourage to ambulate Code status Full code Admission and Anticipated Discharge Date Admission Date: October 03, 2022 Subjective Patient seen in follow up of dehydration, paranoia Sitting up in bed in no acute distress, 1:1 sitter present Had a large BM Still feels somewhat bloated but better Denies any chest pain, palpitation, dizziness, shortness of breath. Reports that she walked in hallway, confirmed w/ RN She has bottled water next to her and again about half full Says she tried few different things but nothing agreed with her too much Pre-packaged food encouraged but discussed chicken soup/ broth to try as well Discussed with RN. Started on a new med by psychiatry. Discussed w/ psychiatry in detail, ok to DC back to [facility]. Also discussed with CM. Review of Systems Review of Systems: All systems reviewed & are unremarkable except as noted in Subjective Physical Exam Physical Exam: General- No acute distress Head- at raumatic Eyes- PER RL, EOMI, ENT- elsy pharynx clear Neck - supple, no JVD L ungs- clear to aus cultation Heart- r egular rhythm; no murmur Abdomen- no rmal bowel sounds, soft Extremities- moves extremities Neuro- alert, sade ented x 3; PERRL, EOMI; no facial pa lsy; no dysarthria , moves extremitie s Skin- warm & dry Results & Data Results & Data Vital Signs (Past 12 Hours) Vital Signs Temp Pulse Pulse Resp BP Pulse Ox O2 Del Method 10/06/22 11:10 76 14 98 Room Air 10/06/22 07:26 37.1 C 74 20 99/65 L 98 Room Air 10/06/22 06:01 61 10/06/22 07:10 69 14 99 Room Air 10/06/22 04:16 36.7 C 68 16 91/60 L 98 Room Air 10/06/22 00:00 72 FiO2 10/06/22 11:10 10/06/22 07:26 10/06/22 06:01 10/06/22 07:10 21 10/06/22 04:16 10/06/22 00:00 Laboratory Results 10/06/22 Range/Units 10:10 Sodium 138 (136-145) mmol/L Potassium 3.5 (3.5-5.1) mmol/L Chloride 102 (98-107) mmol/L Carbon Dioxide 31 (21-32) mmol/L Anion Gap 5 (3-11) BUN 7 (6-23) mg/dl Creatinine 0.52 L (0.6-1.2) mg/dl Est Cr Clr Drug Dosing 124.7 ml/min Est GFR ( Amer) 137.5 ml/min Est GFR (Non-Af Amer) 118.7 ml/min BUN/Creatinine Ratio 13.5 (10-20) Glucose 90 (70-99(Fasting)) mg/dl Calcium 8.6 (8.6-10.3) mg/dl Medications Administered Current Inpatient Medications Acetaminophen (Acetaminophen 325 Mg Tab) 650 mg PO Q6 PRN PRN Reason: Pain Stop: 11/02/22 19:09 Albuterol (Albuterol Hfa 8 Gm Inhaler) 2 puffs INH QIDR MARCIO Stop: 11/02/22 19:09 Last Admin: 10/06/22 11:08 Dose: 2 puffs Albuterol (Albuterol Hfa 8 Gm Inhaler) 2 puffs INH Q4 PRN PRN Reason: Shortness Of Breath Stop: 11/04/22 12:05 Buspirone HCl (Buspirone 5 Mg Tab) 5 mg PO BID MARCIO Stop: 11/02/22 20:59 Last Admin: 10/06/22 09:13 Dose: 5 mg Escitalopram Oxalate (Escitalopram Oxalate 10 Mg Tab) 5 mg PO DAILY MARCIO Stop: 11/03/22 08:59 Last Admin: 10/06/22 09:14 Dose: 5 mg Famotidine (Famotidine 20 Mg Tab) 20 mg PO BID MARCIO Stop: 11/02/22 20:59 Last Admin: 10/06/22 09:13 Dose: 20 mg Hydroxyzine HCl (Hydroxyzine Hcl 25 Mg Tab) 25 mg PO BID PRN PRN Reason: Abdominal Discomfort Stop: 11/02/22 19:09 Montelukast Sodium (Montelukast Sodium 10 Mg Tablet) 10 mg PO HS MARCIO Stop: 11/02/22 20:59 Last Admin: 10/05/22 19:54 Dose: 10 mg Risperidone (Risperidone 3 Mg Tablet) 3 mg PO BID MARCIO Stop: 11/02/22 20:59 Last Admin: 10/06/22 09:12 Dose: Not Given Simethicone (Simethicone 80 Mg Chew) 80 mg PO TID PRN PRN Reason: Gas or Constipation Stop: 11/04/22 12:20 Last Admin: 10/05/22 13:03 Dose: 80 mg Thiothixene (Thiothixene 1 Mg Cap) 1 mg PO BID MARCIO Stop: 11/04/22 13:34 Last Admin: 10/06/22 09:12 Dose: 1 mg Trazodone HCl (Trazodone Hcl 50 Mg Tab) 50 mg PO HS [facility] Stop: 11/02/22 20:59 Last Admin: 10/05/22 19:51 Dose: Not Given Umeclidinium [place] (Umeclidinium [place] 62.5mcg/Blister 7 Puffs/Inhaler) 1 puffs INH DAILY MARCIO Stop: 11/03/22 08:59 Last Admin: 10/06/22 09:10 Dose: 1 puffs
[2022-10-06 15:54] LABS: BUN Creatinine Ratio 13.5 (10-20); Calcium 8.6 mg/dl (8.6-10.3); Creatinine Clr Calc Pharmacy 124.7 ml/min; Est GFR (African American) 137.5 ml/min; Est GFR (Non-African American) 118.7 ml/min; Potassium 3.5 mmol/L (3.5-5.1)
[2022-10-06] MEDS: traZODone HCL 50 MG TAB PO SCH (21:22)
[2022-10-06] MEDS: MONTELUKAST SODIUM 10 MG TABLET PO SCH (21:23)
[2022-10-07] MEDS: ALBUTEROL HFA 8 GM INHALER INH SCH ×4 (07:02→19:26)
[2022-10-07 07:39] LABS: Calcium 8.4 mg/dl (8.6-10.3); Creatinine Clr Calc Pharmacy 109.5 ml/min; Est GFR (African American) 131.9 ml/min; Est GFR (Non-African American) 113.8 ml/min; Potassium 3.2 mmol/L (3.5-5.1)
[2022-10-07] MEDS ORDERED: POTASSIUM CHLORIDE CRTAB 20 MEQ TABCR PO STA (07:56)
--- NOTE | 2022-10-07 08:41 | Hospitalist Progress Note ---
Date of Service October 07, 2022 Assessment & Plan (1) Starvation ketoacidosis: (2) Dehydration: (3) Hypokalemia: Plan: This is a 41 y/o female with a PMH of PCOS, asthma, IBS, depression, anxiety, and recent paranoia who presented to the ED from [place] for the third visit this month with dehydration and electrolyte abnormalities related to refusal to eat or drink water due to underlying paranoia that someone is trying to poison her ([facility] staff, her family). Per outpatient records, hx of anxiety and depression but no documentation of prior psychosis until recent symptoms, which seemed to start after COVID in May.Per sign out, pt is currently at [place] on a 303. Mostly due to poor oral intake and starvation Potassium 2.9 on admission, K 3.2 today K replace and monitor Received IVF with potassium on admission Electrolytes normal after IVF Continue to encourage PO intake if not eating normally, may need oral potassium supplement (4) Delusional disorder, somatic type: (5) Paranoia: Plan: Denies any suicidal thought Continue 1 to 1 sitter Psychiatry on board recommended a trial of thiothixene 1 mg PO BID - discussed over the phone in detail and started the med Continue escitalopram 5 mg PO daily and buspirone 5 mg PO BID as per psych Continue monitor closely QTC prolonged Will avoid QT prolong medication Re-checked EKG - QT shortened Abnormal UA on admission, poor sample UA re-checked - normal, not c/w UTI DVT px SCD/ encourage to ambulate Code status Full code Admission and Anticipated Discharge Date Admission Date: October 03, 2022 Subjective Patient seen in follow up of dehydration, paranoia Sitting up in bed in no acute distress, 1:1 sitter present Had a large BM before Still feels somewhat bloated but better Denies any chest pain, palpitation, dizziness, shortness of breath. she walks in hallway, confirmed w/ RN She has bottled water next to her and again about half full Says she had some yogurt, boost, and pudding this AM but only small amount of each Pre-packaged food encouraged Discussed with RN. Started on a new med by psychiatry. Discussed w/ psychiatry in detail, ok to DC back to [facility]. Also discussed with CM. Review of Systems 2 Review of Systems: All systems reviewed & are unremarkable except as noted in Subjective Physical Exam Physical Exam: General- No acute distress Head- at raumatic Eyes- PER RL, EOMI, ENT- elsy pharynx clear Neck - supple, no JVD L ungs- clear to aus cultation Heart- r egular rhythm; no murmur Abdomen- no rmal bowel sounds, soft Extremities- moves extremities Neuro- alert, sade ented x 3; PERRL, EOMI; no facial pa lsy; no dysarthria , moves extremitie s Skin- warm & dry Results & Data Results & Data Vital Signs (Past 12 Hours) Vital Signs Temp Pulse Pulse Resp BP Pulse Ox O2 Del Method 10/07/22 08:20 73 10/07/22 07:49 36.6 C 83 18 93/65 L 98 Room Air 10/07/22 07:02 74 16 98 Room Air 10/07/22 04:11 36.7 C 68 16 93/62 L 100 Room Air 10/06/22 23:18 72 10/06/22 23:01 36.9 C 72 17 97/66 L 98 Room Air Laboratory Results 10/07/22 10/06/22 Range/Units 06:44 10:10 Sodium 139 138 (136-145) mmol/L Potassium 3.2 L 3.5 (3.5-5.1) mmol/L Chloride 100 102 (98-107) mmol/L Carbon Dioxide 34 H 31 (21-32) mmol/L Anion Gap 5 5 (3-11) BUN 7 7 (6-23) mg/dl Creatinine 0.59 L 0.52 L (0.6-1.2) mg/dl Est Cr Clr Drug Dosing 109.5 124.7 ml/min Est GFR ( Amer) 131.9 137.5 ml/min Est GFR (Non-Af Amer) 113.8 118.7 ml/min BUN/Creatinine Ratio 13.5 (10-20) Glucose 90 (70-99(Fasting)) mg/dl Fasting Glucose 100 H (70-99) mg/dl Calcium 8.4 L 8.6 (8.6-10.3) mg/dl Medications Administered Current Inpatient Medications Acetaminophen (Acetaminophen 325 Mg Tab) 650 mg PO Q6 PRN PRN Reason: Pain Stop: 11/02/22 19:09 Last Admin: 10/07/22 04:40 Dose: 650 mg Albuterol (Albuterol Hfa 8 Gm Inhaler) 2 puffs INH QIDR [facility] Stop: 11/02/22 19:09 Last Admin: 10/07/22 07:02 Dose: 2 puffs Albuterol (Albuterol Hfa 8 Gm Inhaler) 2 puffs INH Q4 PRN PRN Reason: Shortness Of Breath Stop: 11/04/22 12:05 Buspirone HCl (Buspirone 5 Mg Tab) 5 mg PO BID [facility] Stop: 11/02/22 20:59 Last Admin: 10/06/22 21:23 Dose: 5 mg Escitalopram Oxalate (Escitalopram Oxalate 10 Mg Tab) 5 mg PO DAILY [facility] Stop: 11/03/22 08:59 Last Admin: 10/06/22 09:14 Dose: 5 mg Famotidine (Famotidine 20 Mg Tab) 20 mg PO BID [facility] Stop: 11/02/22 20:59 Last Admin: 10/06/22 21:23 Dose: 20 mg Hydroxyzine HCl (Hydroxyzine Hcl 25 Mg Tab) 25 mg PO BID PRN PRN Reason: Abdominal Discomfort Stop: 11/02/22 19:09 Montelukast Sodium (Montelukast Sodium 10 Mg Tablet) 10 mg PO [facility] Stop: 11/02/22 20:59 Last Admin: 10/06/22 21:23 Dose: 10 mg Risperidone (Risperidone 3 Mg Tablet) 3 mg PO BID [facility] Stop: 11/02/22 20:59 Last Admin: 10/06/22 21:20 Dose: Not Given Simethicone (Simethicone 80 Mg Chew) 80 mg PO TID PRN PRN Reason: Gas or Constipation Stop: 11/04/22 12:20 Last Admin: 10/05/22 13:03 Dose: 80 mg Thiothixene (Thiothixene 1 Mg Cap) 1 mg PO BID [facility] Stop: 11/04/22 13:34 Last Admin: 10/06/22 21:21 Dose: Not Given Trazodone HCl (Trazodone Hcl 50 Mg Tab) 50 mg PO HS [facility] Stop: 11/02/22 20:59 Last Admin: 10/06/22 21:22 Dose: Not Given Umeclidinium [place] (Umeclidinium [place] 62.5mcg/Blister 7 Puffs/Inhaler) 1 puffs INH DAILY [facility] Stop: 11/03/22 08:59 Last Admin: 10/06/22 09:10 Dose: 1 puffs
[2022-10-07] MEDS: ESCITALOPRAM OXALATE 10 MG TAB PO SCH (09:11)
[2022-10-07] MEDS: busPIRone 5 MG TAB PO SCH ×2 (09:11→21:21)
[2022-10-07] MEDS: UMECLIDINIUM BROMIDE 62.5MCG/BLISTER 7 PUFFS/INHALER INH SCH (09:11)
[2022-10-07] MEDS: FAMOTIDINE 20 MG TAB PO SCH ×2 (09:11→21:21)
[2022-10-07] MEDS: risperiDONE 3 MG TABLET PO SCH ×2 (09:12→21:43)
[2022-10-07] MEDS: THIOTHIXENE 1 MG CAP PO SCH ×2 (09:12→21:43)
[2022-10-07] MEDS: SIMETHICONE 80 MG CHEW PO PRN (13:46)
[2022-10-07] MEDS ORDERED: SENNA 8.6 MG TAB PO PRN (13:59)
[2022-10-07] MEDS: D5W AND 1/2NSS + 20MEQ KCL 20 MEQ/1,000 ML BAG IV SCH (21:20)
[2022-10-07] MEDS: MONTELUKAST SODIUM 10 MG TABLET PO SCH (21:21)
[2022-10-07] MEDS: traZODone HCL 50 MG TAB PO SCH (21:43)
[2022-10-08] MEDS: ALBUTEROL HFA 8 GM INHALER INH SCH ×4 (07:41→19:30)
[2022-10-08] MEDS: FAMOTIDINE 20 MG TAB PO SCH ×2 (08:31→19:45)
[2022-10-08] MEDS: busPIRone 5 MG TAB PO SCH ×2 (08:31→19:44)
[2022-10-08] MEDS: UMECLIDINIUM BROMIDE 62.5MCG/BLISTER 7 PUFFS/INHALER INH SCH (08:31)
[2022-10-08] MEDS: ESCITALOPRAM OXALATE 10 MG TAB PO SCH (08:31)
[2022-10-08] MEDS: risperiDONE 3 MG TABLET PO SCH (08:32)
[2022-10-08] MEDS: THIOTHIXENE 1 MG CAP PO SCH ×2 (08:32→13:41)
--- NOTE | 2022-10-08 08:38 | Hospitalist Progress Note ---
Date of Service October 08, 2022 Assessment & Plan (1) Starvation ketoacidosis: (2) Dehydration: (3) Hypokalemia: Plan: This is a 41 y/o female with a PMH of PCOS, asthma, IBS, depression, anxiety, and recent paranoia who presented to the ED from [place] for the third visit this month with dehydration and electrolyte abnormalities related to refusal to eat or drink water due to underlying paranoia that someone is trying to poison her ([facility] staff, her family). Per outpatient records, hx of anxiety and depression but no documentation of prior psychosis until recent symptoms, which seemed to start after COVID in May.Per sign out, pt is currently at [place] on a 303. Mostly due to poor oral intake and starvation Potassium 2.9 on admission K replace and monitor IVF Electrolytes now normal Continue to encourage PO intake if not eating normally, may need oral potassium supplement Pre-packaged food encouraged. She drinks bottled water, cranberry juice. Eats yogurt, crackers.. (4) Delusional disorder, somatic type: (5) Paranoia: Plan: Denies any suicidal thought Continue 1 to 1 sitter Psychiatry on board recommended a trial of thiothixene 1 mg PO BID - discussed over the phone in detail and started the med - pt took some doses but not regularly Continue escitalopram 5 mg PO daily and buspirone 5 mg PO BID as per psych Continue monitor closely QTC prolonged on admission Will avoid QT prolong medication Re-checked EKG (10/05) - QT shortened, normal sinus rhythm 10/08 - checked tele - NSR no arrhythmias - will downgrade from tele Abnormal UA on admission, poor sample UA re-checked - normal, not c/w UTI DVT px SCD/ encourage to ambulate Code status Full code Admission and Anticipated Discharge Date Admission Date: October 03, 2022 Subjective Patient seen in follow up of dehydration, paranoia Sitting up in bed in no acute distress, 1:1 sitter present Today she feels less bloated Denies any chest pain, palpitation, dizziness. However feels like it's more difficult to breath for her and "asthma is acting up or she is filling up with fluid". She breathing comfortably on RA on my exam. She is saturating 99% on RA and her lungs are completely clear to auscultation on my exam and i told her that. She got up from bed without any help and walked easily to the kitchen to get some cranberry juice and some crackers. She has bottled water next to her, about half full. She says that [facility] won't let her have bottled water. She had half of filipino yogurt for breakfast, crackers. Says cranberry juice does not bother her. Pre-packaged food encouraged Discussed with RN. Review of Systems Review of Systems: All systems reviewed & are unremarkable except as noted in Subjective Physical Exam Physical Exam: General- No acute distress Head- at raumatic Eyes- PER RL, EOMI, ENT- elsy pharynx clear Neck - supple, no JVD L ungs- clear to aus cultation Heart- r egular rhythm; no murmur Abdomen- no rmal bowel sounds, soft Extremities- moves extremities Neuro- alert, sade ented x 3; PERRL, EOMI; no facial pa lsy; no dysarthria , moves extremitie s Skin- warm & dry Results & Data Results & Data Vital Signs (Past 12 Hours) Vital Signs Temp Pulse Pulse Resp BP Pulse Ox O2 Del Method 10/08/22 08:12 69 10/08/22 07:30 36.5 C 75 18 93/64 L 96 Room Air 10/08/22 07:26 68 18 97 Room Air 10/08/22 04:00 36.5 C 72 18 95/63 L 100 Room Air 10/08/22 00:29 67 10/07/22 22:40 37.0 C 71 18 98/65 L 99 Room Air Medications Administered Current Inpatient Medications Acetaminophen (Acetaminophen 325 Mg Tab) 650 mg PO Q6 PRN PRN Reason: Pain Stop: 11/02/22 19:09 Last Admin: 10/07/22 04:40 Dose: 650 mg Albuterol (Albuterol Hfa 8 Gm Inhaler) 2 puffs INH QIDR [facility] Stop: 11/02/22 19:09 Last Admin: 10/08/22 07:41 Dose: 2 puffs Albuterol (Albuterol Hfa 8 Gm Inhaler) 2 puffs INH Q4 PRN PRN Reason: Shortness Of Breath Stop: 11/04/22 12:05 Buspirone HCl (Buspirone 5 Mg Tab) 5 mg PO BID [facility] Stop: 11/02/22 20:59 Last Admin: 10/08/22 08:31 Dose: 5 mg Escitalopram Oxalate (Escitalopram Oxalate 10 Mg Tab) 5 mg PO DAILY [facility] Stop: 11/03/22 08:59 Last Admin: 10/08/22 08:31 Dose: 5 mg Famotidine (Famotidine 20 Mg Tab) 20 mg PO BID [facility] Stop: 11/02/22 20:59 Last Admin: 10/08/22 08:31 Dose: 20 mg Hydroxyzine HCl (Hydroxyzine Hcl 25 Mg Tab) 25 mg PO BID PRN PRN Reason: Abdominal Discomfort Stop: 11/02/22 19:09 Potassium Chloride/Dextrose/Sod Cl (D5w And 1/2nss + 20meq Kcl) 20 meq in 1,000 mls @ 80 mls/hr IV .[id number] [facility]; Protocol Stop: 11/06/22 19:59 Last Admin: 10/07/22 21:20 Dose: 80 mls/hr Montelukast Sodium (Montelukast Sodium 10 Mg Tablet) 10 mg PO [facility] Stop: 11/02/22 20:59 Last Admin: 10/07/22 21:21 Dose: 10 mg Risperidone (Risperidone 3 Mg Tablet) 3 mg PO BID [facility] Stop: 11/02/22 20:59 Last Admin: 10/08/22 08:32 Dose: Not Given Sennosides (Senna 8.6 Mg Tab) 8.6 mg PO DAILY PRN PRN Reason: constipation Stop: 11/06/22 13:59 Simethicone (Simethicone 80 Mg Chew) 80 mg PO TID PRN PRN Reason: Gas or Constipation Stop: 11/04/22 12:20 Last Admin: 10/07/22 13:46 Dose: 80 mg Thiothixene (Thiothixene 1 Mg Cap) 1 mg PO BID [facility] Stop: 11/04/22 13:34 Last Admin: 10/08/22 08:32 Dose: Not Given Trazodone HCl (Trazodone Hcl 50 Mg Tab) 50 mg PO HS [facility] Stop: 11/02/22 20:59 Last Admin: 10/07/22 21:43 Dose: Not Given Umeclidinium [place] (Umeclidinium [place] 62.5mcg/Blister 7 Puffs/Inhaler) 1 puffs INH DAILY [facility] Stop: 11/03/22 08:59 Last Admin: 10/08/22 08:31 Dose: 1 puffs
[2022-10-08] MEDS: D5W AND 1/2NSS + 20MEQ KCL 20 MEQ/1,000 ML BAG IV SCH (09:34)
[2022-10-08 14:41] LABS: BUN Creatinine Ratio 8.7 (10-20); Calcium 8.2 mg/dl (8.6-10.3); Creatinine Clr Calc Pharmacy 140.4 ml/min; Est GFR (African American) 143.2 ml/min; Est GFR (Non-African American) 123.6 ml/min; Magnesium 1.7 mg/dl (1.7-2.4); Potassium 3.1 mmol/L (3.5-5.1)
[2022-10-08] MEDS ORDERED: POTASSIUM CHLORIDE CRTAB 20 MEQ TABCR PO STA (15:23)
[2022-10-08] MEDS ORDERED: POTASSIUM PHOS 3 MMOL/1 ML INFUSION IV STA (15:27)
[2022-10-08] MEDS ORDERED: POTASSIUM PHOSPHATE 15 MMOL in SODIUM CHLORIDE 0.9% 250 ML IV ONE (16:00)
[2022-10-08] MEDS: MAGNESIUM OXIDE 400 MG TAB PO SCH (16:49)
[2022-10-08] MEDS: traZODone HCL 50 MG TAB PO SCH (19:42)
[2022-10-08] MEDS: MONTELUKAST SODIUM 10 MG TABLET PO SCH (19:44)
--- NOTE | 2022-10-09 07:28 | Hospitalist Progress Note ---
Date of Service October 09, 2022 Assessment & Plan (1) Starvation ketoacidosis: (2) Dehydration: (3) Hypokalemia: Plan: This is a 41 y/o female with a PMH of PCOS, asthma, IBS, depression, anxiety, and recent paranoia who presented to the ED from [place] for the third visit this month with dehydration and electrolyte abnormalities related to refusal to eat or drink water due to underlying paranoia that someone is trying to poison her ([facility] staff, her family). Per outpatient records, hx of anxiety and depression but no documentation of prior psychosis until recent symptoms, which seemed to start after COVID in May.Per sign out, pt is currently at [place] on a 303. Mostly due to poor oral intake and starvation Potassium 2.9 on admission K replace and monitor IVF provided Electrolytes now normal Continue to encourage PO intake if not eating normally, may need oral potassium supplement, also started multivitamin, which she did not oppose to and took in front of me Pre-packaged food encouraged (d/t her delusions). She drinks bottled water, cranberry juice. Eats yogurt, crackers.. (4) Delusional disorder, somatic type: (5) Paranoia: Plan: Denies any suicidal thought Continue 1 to 1 sitter Psychiatry on board recommended a trial of thiothixene 1 mg PO BID Continue escitalopram 5 mg PO daily and buspirone 5 mg PO BID as per psych Continue monitor closely 10/09 Psychiatry consulted and following - they contacted [facility] and provided list of things that [facility] would like re-checked. Blood work and EKG were some of those requests. Therefore EKG was reordered again. They are concerned about her ambulating - patient has been ambulating without any difficulty, this has been observed by me, psychiatry provider, patient's nurse and of course one-on-one sitter who is walking with her. We will also try to provide more detailed foods and drinks that she takes. She has improved her oral intake - such as - already finished 1 large bottled water today, had orange juice today, vanilla pudding, crackers, yogurt. Discussed to have some cereal next (as she prefers packaged foods) QTC prolonged on admission Will avoid QT prolong medication Re-checked EKG (10/05) - normal ECG, QT shortened, normal sinus rhythm 10/08 - checked tele - NSR no arrhythmias - downgrade from tele 10/09 re-checked ECG (as per [facility] request) - normal ECG, NSR Abnormal UA on admission, poor sample UA re-checked - normal, not c/w UTI DVT px SCD/ pt ambulatory Code status Full code Admission and Anticipated Discharge Date Admission Date: October 03, 2022 Subjective Patient seen in follow up of dehydration, paranoia Sitting up in bed in no acute distress, 1:1 sitter present Reports having small BM today Denies any chest pain, palpitation, dizziness. She is breathing comfortably on RA on my exam. She is also ambulating in hallway without any difficulty several times a day, also now while I'm watching her. She tells me for breakfast she had orange juice, vanilla pudding, crackers, and she was not bothered by it. She tells me per lunch she only had some yogurt. She is holding big bottle of water, which she started drinking today, and she finished it in front of me. Patient's nurse also present at the bedside. Discussed what she would like next, as she prefers packaged foods, agreed on cereal. Of note, yesterday - she got up from bed without any help and walked easily to the kitchen to get some cranberry juice and some crackers. She is concerned that [facility] won't let her have bottled water. Pre-packaged food encouraged Discussed with RN. Psychiatry consulted and following - they contacted [facility] and provided list of things that [facility] would like re-checked. Blood work and EKG were some of those requests. Therefore EKG was reordered again. They are concerned about her ambulating - patient has been ambulating without any difficulty, this has been observed by me, psychiatry provider, patient's nurse and of course one-on-one sitter who is walking with her. We will also try to provide more detailed foods and drinks that she takes. Review of Systems Review of Systems: All systems reviewed & are unremarkable except as noted in Subjective Physical Exam Physical Exam: General- No acute distress Head- at raumatic Eyes- PER RL, EOMI, ENT- elsy pharynx clear Neck - supple, no JVD L ungs- clear to aus cultation Heart- r egular rhythm; no murmur Abdomen- no rmal bowel sounds, soft Extremities- moves extremities Neuro- alert, sade ented x 3; PERRL, EOMI; no facial pa lsy; no dysarthria , moves extremitie s Skin- warm & dry Results & Data Results & Data Vital Signs (Past 12 Hours) Vital Signs Temp Pulse Resp BP Pulse Ox O2 Del Method 10/09/22 04:32 36.7 C 81 20 93/62 L 100 Room Air 10/08/22 19:31 85 16 100 Room Air Laboratory Results 10/09/22 10/08/22 Range/Units 07:36 14:04 Sodium 140 139 (136-145) mmol/L Potassium 3.7 3.1 L (3.5-5.1) mmol/L Chloride 108 H 107 (98-107) mmol/L Carbon Dioxide 27 26 (21-32) mmol/L Anion Gap 5 6 (3-11) BUN 3 L 4 L (6-23) mg/dl Creatinine 0.47 L 0.46 L (0.6-1.2) mg/dl Est Cr Clr Drug Dosing 137.4 140.4 ml/min Est GFR ( Amer) 142.2 143.2 ml/min Est GFR (Non-Af Amer) 122.7 123.6 ml/min BUN/Creatinine Ratio 6.4 L 8.7 L (10-20) Glucose 82 141 H (70-99(Fasting)) mg/dl Calcium 8.0 L 8.2 L (8.6-10.3) mg/dl Phosphorus 3.8 D 2.0 L (2.5-4.9) mg/dl Magnesium 1.7 1.7 (1.7-2.4) mg/dl Medications Administered Current Inpatient Medications Acetaminophen (Acetaminophen 325 Mg Tab) 650 mg PO Q6 PRN PRN Reason: Pain Stop: 11/02/22 19:09 Last Admin: 10/07/22 04:40 Dose: 650 mg Albuterol (Albuterol Hfa 8 Gm Inhaler) 2 puffs INH QIDR [facility] Stop: 11/02/22 19:09 Last Admin: 10/08/22 19:30 Dose: 2 puffs Albuterol (Albuterol Hfa 8 Gm Inhaler) 2 puffs INH Q4 PRN PRN Reason: Shortness Of Breath Stop: 11/04/22 12:05 Buspirone HCl (Buspirone 5 Mg Tab) 5 mg PO BID [facility] Stop: 11/02/22 20:59 Last Admin: 10/08/22 19:44 Dose: 5 mg Escitalopram Oxalate (Escitalopram Oxalate 10 Mg Tab) 5 mg PO DAILY [facility] Stop: 11/03/22 08:59 Last Admin: 10/08/22 08:31 Dose: 5 mg Famotidine (Famotidine 20 Mg Tab) 20 mg PO BID [facility] Stop: 11/02/22 20:59 Last Admin: 10/08/22 19:45 Dose: 20 mg Hydroxyzine HCl (Hydroxyzine Hcl 25 Mg Tab) 25 mg PO BID PRN PRN Reason: Abdominal Discomfort Stop: 11/02/22 19:09 Potassium Chloride/Dextrose/Sod Cl (D5w And 1/2nss + 20meq Kcl) 20 meq in 1,000 mls @ 80 mls/hr IV .[id number] [facility]; Protocol Stop: 11/06/22 19:59 Last Infusion: 10/08/22 13:31 Dose: 0 mls/hr Magnesium Oxide (Magnesium Oxide 400 Mg Tab) 400 mg PO QAM [facility] Stop: 11/07/22 15:29 Last Admin: 10/08/22 16:49 Dose: 400 mg Montelukast Sodium (Montelukast Sodium 10 Mg Tablet) 10 mg PO [facility] Stop: 11/02/22 20:59 Last Admin: 10/08/22 19:44 Dose: 10 mg Sennosides (Senna 8.6 Mg Tab) 8.6 mg PO DAILY PRN PRN Reason: constipation Stop: 11/06/22 13:59 Simethicone (Simethicone 80 Mg Chew) 80 mg PO TID PRN PRN Reason: Gas or Constipation Stop: 11/04/22 12:20 Last Admin: 10/07/22 13:46 Dose: 80 mg Thiothixene (Thiothixene 1 Mg Cap) 1 mg PO BID [facility] Stop: 11/04/22 13:34 Last Admin: 10/08/22 13:41 Dose: 1 mg Trazodone HCl (Trazodone Hcl 50 Mg Tab) 50 mg PO [facility] Stop: 11/02/22 20:59 Last Admin: 10/08/22 19:42 Dose: Not Given Umeclidinium [place] (Umeclidinium [place] 62.5mcg/Blister 7 Puffs/Inhaler) 1 puffs INH DAILY [facility] Stop: 11/03/22 08:59 Last Admin: 10/08/22 08:31 Dose: 1 puffs
[2022-10-09] MEDS: ALBUTEROL HFA 8 GM INHALER INH SCH ×4 (07:46→20:11)
[2022-10-09 08:13] LABS: BUN Creatinine Ratio 6.4 (10-20); Creatinine Clr Calc Pharmacy 137.4 ml/min; Est GFR (African American) 142.2 ml/min; Est GFR (Non-African American) 122.7 ml/min; Magnesium 1.7 mg/dl (1.7-2.4); Phosphorus 3.8 mg/dl (2.5-4.9); Potassium 3.7 mmol/L (3.5-5.1)
[2022-10-09] MEDS: MAGNESIUM OXIDE 400 MG TAB PO SCH (08:40)
[2022-10-09] MEDS: THIOTHIXENE 1 MG CAP PO SCH ×2 (08:40→21:00)
[2022-10-09] MEDS: UMECLIDINIUM BROMIDE 62.5MCG/BLISTER 7 PUFFS/INHALER INH SCH (08:40)
[2022-10-09] MEDS: busPIRone 5 MG TAB PO SCH ×2 (09:38→21:00)
[2022-10-09] MEDS: ESCITALOPRAM OXALATE 10 MG TAB PO SCH (09:38)
[2022-10-09] MEDS: FAMOTIDINE 20 MG TAB PO SCH ×2 (09:39→21:00)
--- NOTE | 2022-10-09 12:04 | Psychiatric Progress Note ---
Date of Service October 09, 2022 Impression / Recommendations Impression 41 yo woman with ongoing somatic delusions resulting in poor po intake and medical admission for dehydration. She is now taking her po antipsychotic medication which is going to be the most likely to help with lessening the intensity of her delusions and paranoia. She is now medically stable and will ideally return to [facility] for ongoing psychiatric care when they agree to re- accept her. While there she had been on a 303 and anticipate that they would re- accept her on a 302 commitment and then move to 303 commitment with medication over objection, if she starts to decline antipsychotic medication once back at their facility, to allow for treatment of delusions leading to lack of po intake. Without resumption of inpatient psychiatric treatment she is not likely to make any significant progress as symptoms are driven by her somatic delusions. 10/09/2022: No evidence of side effects to Navane. Eating a bit more, walking and agreed to shower this morning which may represent some lessening of paranoia and delusional symptoms from Navane. (1) Delusional disorder, somatic type: Plan * continue trial of thothixene 2 mg PO BID * continue escitalopram 5 mg PO daily * continue buspirone 5 mg PO BID Interval History Identifying Information Mercedes Lott is a 41-year-old F with a history of somatic delusional disorder, admitted to the ED on 10/03/2022 for dehydration from the [facility] where she had been on a 303 commitment. Consult is by the hospitalist service for treatment recommendations. Chief Complaint "I'm not too good I had an attack last night, my hands are numb, I think soon I won't be able to walk anymore". Review of Systems Notes slept overnight, eating some crackers, pudding, jello, drinking water and sips of juice Subjective Subjective Patient was seen & assessed and interval progress reviewed. Has been walking in the halls, showered this morning, took her Navane last night and this morning. Eating crackers in front of me. Remains very paranoid and delusional. Tells me a list of various worries including feeling as though she is having numbness and tingling in her hands and that this will lead to her not being able to walk by this evening. Reviewed that peripherally neuropathy can sometimes happen with B12 and folic acid deficiency when someone isn't eating and importance of eating a variety of foods to which she states uncertainty as she feels this will lead to gas which will lead to her not being able to breath. She also catastrophizes other physical/somatic symptoms as things that will lead to various horrible outcomes. She cannot challenge or reality-test these delusions at all. Expresses paranoia about the water at the [facility], fears about the water here poisoning her but did shower this AM, concern that her "airways will close up" if she eats more than a few bites of food at a time and ongoing ruminations about various somatic symptoms. Notable appears very comfortable, in no signs of respiratory distress, and moving her hands about and maneuvering opening cracker packages without any evidence of numbness/nerve issues. Physical Exam Psychiatric Orientation: alert and oriented x 3 Apperance: appropriately dressed and appropriately groomed Eye Contact: good eye contact Motor Behavior: no abnormal motor movements Speech: normal rate/rhythm/volume of speech Affect: + constricted affect Mood: + anxious mood Thought Process: + circumstantial thought process, + looseness of associations and + perseveration Thought Content: + paranoid, + cognitive distortions and + delusions Suicidal Thoughts: denies suicidal thoughts Homicidal Thoughts: denies homicidal thoughts Hallucinations: no auditory hallucinations and no visual hallucinations Cognition: recent memory grossly intact, remote memory grossly intact, attention grossly intact and language grossly intact Estimated Intelligence: average estimated intelligence Insight: + severely impaired insight Judgment: + impaired judgement Vital Signs (Past 24 Hours) Last Vital Signs Temp 37 C 10/09/22 07:37 Pulse 76 10/09/22 11:06 Resp 16 10/09/22 11:06 BP 93/64 L 10/09/22 07:37 Pulse Ox 98 10/09/22 11:06 O2 Del Method Room Air 10/09/22 11:06 FiO2 21 10/06/22 15:28 Results & Data ([facility]) Laboratory Results Laboratory Results - last 24 hr 10/08/22 10/09/22 14:04 07:36 Sodium 139 140 Potassium 3.1 L 3.7 Chloride 107 108 H Carbon Dioxide 26 27 Anion Gap 6 5 BUN 4 L 3 L Creatinine 0.46 L 0.47 L Est Cr Clr Drug Dosing 140.4 137.4 Est GFR ( Amer) 143.2 142.2 Est GFR (Non-Af Amer) 123.6 122.7 BUN/Creatinine Ratio 8.7 L 6.4 L Glucose 141 H 82 Calcium 8.2 L 8.0 L Phosphorus 2.0 L 3.8 D Magnesium 1.7 1.7 Current Inpatient Medications Current Inpatient Medications: Current Inpatient Medications Acetaminophen (Acetaminophen 325 Mg Tab) 650 mg PO Q6 PRN PRN Reason: Pain Stop: 11/02/22 19:09 Last Admin: 10/07/22 04:40 Dose: 650 mg Albuterol (Albuterol Hfa 8 Gm Inhaler) 2 puffs INH QIDR [facility]ARCIO Stop: 11/02/22 19:09 Last Admin: 10/09/22 11:06 Dose: 2 puffs Albuterol (Albuterol Hfa 8 Gm Inhaler) 2 puffs INH Q4 PRN PRN Reason: Shortness Of Breath Stop: 11/04/22 12:05 Buspirone HCl (Buspirone 5 Mg Tab) 5 mg PO BID [facility] Stop: 11/02/22 20:59 Last Admin: 10/09/22 09:38 Dose: 5 mg Escitalopram Oxalate (Escitalopram Oxalate 10 Mg Tab) 5 mg PO DAILY [facility] Stop: 11/03/22 08:59 Last Admin: 10/09/22 09:38 Dose: 5 mg Famotidine (Famotidine 20 Mg Tab) 20 mg PO BID [facility] Stop: 11/02/22 20:59 Last Admin: 10/09/22 09:39 Dose: 20 mg Hydroxyzine HCl (Hydroxyzine Hcl 25 Mg Tab) 25 mg PO BID PRN PRN Reason: Abdominal Discomfort Stop: 11/02/22 19:09 Potassium Chloride/Dextrose/Sod Cl (D5w And 1/2nss + 20meq Kcl) 20 meq in 1,000 mls @ 80 mls/hr IV .[id number] [facility]; Protocol Stop: 11/06/22 19:59 Last Infusion: 10/08/22 13:31 Dose: 0 mls/hr Magnesium Oxide (Magnesium Oxide 400 Mg Tab) 400 mg PO QAM [facility] Stop: 11/07/22 15:29 Last Admin: 10/09/22 08:40 Dose: 400 mg Montelukast Sodium (Montelukast Sodium 10 Mg Tablet) 10 mg PO HS [facility] Stop: 11/02/22 20:59 Last Admin: 10/08/22 19:44 Dose: 10 mg Sennosides (Senna 8.6 Mg Tab) 8.6 mg PO DAILY PRN PRN Reason: constipation Stop: 11/06/22 13:59 Simethicone (Simethicone 80 Mg Chew) 80 mg PO TID PRN PRN Reason: Gas or Constipation Stop: 11/04/22 12:20 Last Admin: 10/07/22 13:46 Dose: 80 mg Thiothixene (Thiothixene 1 Mg Cap) 1 mg PO BID [facility] Stop: 11/04/22 13:34 Last Admin: 10/09/22 08:40 Dose: 1 mg Trazodone HCl (Trazodone Hcl 50 Mg Tab) 50 mg PO HS [facility] Stop: 11/02/22 20:59 Last Admin: 10/08/22 19:42 Dose: Not Given Umeclidinium [place] (Umeclidinium [place] 62.5mcg/Blister 7 Puffs/Inhaler) 1 puffs INH DAILY [facility] Stop: 11/03/22 08:59 Last Admin: 10/09/22 08:40 Dose: 1 puffs
[2022-10-09] MEDS: CEROVITE ADV FORMULA TAB PO SCH (14:59)
[2022-10-09] MEDS: MONTELUKAST SODIUM 10 MG TABLET PO SCH (21:00)
[2022-10-09] MEDS: SIMETHICONE 80 MG CHEW PO PRN (21:01)
[2022-10-09] MEDS: traZODone HCL 50 MG TAB PO SCH (21:32)
[2022-10-10 06:45] LABS: Calcium 8.2 mg/dl (8.6-10.3); Creatinine Clr Calc Pharmacy 150.2 ml/min; Est GFR (African American) 146.4 ml/min; Est GFR (Non-African American) 126.3 ml/min; Potassium 3.6 mmol/L (3.5-5.1)
[2022-10-10] MEDS: ALBUTEROL HFA 8 GM INHALER INH SCH ×4 (07:26→19:20)
--- NOTE | 2022-10-10 08:17 | Electrocardiogram Report ---
Test Reason : Blood Pressure : / mmHG Vent. Rate : 068 BPM Atrial Rate : 068 BPM P-R Int : 132 ms QRS Dur : 076 ms QT Int : 412 ms P-R-T Axes : 024 030 031 degrees QTc Int : 438 ms Normal sinus rhythm Normal ECG When compared with ECG of 05-OCT-2022 06:05, No significant change was found Confirmed by Jean Bolivar ([id number]) on 10/10/2022 8:17:24 AM Referred By: REFERRED SELF Confirmed By:Jean Bolivar
[2022-10-10] MEDS: SIMETHICONE 80 MG CHEW PO PRN ×2 (08:18→16:55)
[2022-10-10] MEDS: ESCITALOPRAM OXALATE 10 MG TAB PO SCH (08:20)
[2022-10-10] MEDS: THIOTHIXENE 1 MG CAP PO SCH ×2 (08:20→21:22)
[2022-10-10] MEDS: MAGNESIUM OXIDE 400 MG TAB PO SCH (08:21)
[2022-10-10] MEDS: FAMOTIDINE 20 MG TAB PO SCH ×2 (08:21→21:23)
[2022-10-10] MEDS: busPIRone 5 MG TAB PO SCH ×2 (08:21→21:23)
[2022-10-10] MEDS: CEROVITE ADV FORMULA TAB PO SCH (08:22)
[2022-10-10] MEDS: UMECLIDINIUM BROMIDE 62.5MCG/BLISTER 7 PUFFS/INHALER INH SCH (08:22)
--- NOTE | 2022-10-10 08:29 | Hospitalist Progress Note ---
Date of Service October 10, 2022 Assessment & Plan (1) Starvation ketoacidosis: (2) Dehydration: (3) Hypokalemia: Plan: This is a 41 y/o female with a PMH of PCOS, asthma, IBS, depression, anxiety, and recent paranoia who presented to the ED from [place] for the third visit this month with dehydration and electrolyte abnormalities related to refusal to eat or drink water due to underlying paranoia that someone is trying to poison her ([facility] staff, her family). Per outpatient records, hx of anxiety and depression but no documentation of prior psychosis until recent symptoms, which seemed to start after COVID in May.Per sign out, pt is currently at [place] on a 303. Mostly due to poor oral intake and starvation Potassium 2.9 on admission K replace and monitor IVF provided Electrolytes now normal Continue to encourage PO intake if not eating normally, may need oral potassium supplement, also started multivitamin Pre-packaged food encouraged (d/t her delusions). She drinks bottled water, cranberry juice, orange juice.. Eats yogurt, pudding, jellos, crackers, cereal,.. (4) Delusional disorder, somatic type: (5) Paranoia: Plan: Denies any suicidal thought Continue 1 to 1 sitter Psychiatry on board recommended a trial of thiothixene 1 mg PO BID Continue escitalopram 5 mg PO daily and buspirone 5 mg PO BID as per psych Continue monitor closely / Psychiatry consulted and following - they contacted [facility] and provided list of things that [facility] would like re-checked. Blood work and EKG were some of those requests. Therefore EKG was reordered again. They are concerned about her ambulating - patient has been ambulating without any difficulty, this has been observed by me, psychiatry provider, patient's nurse and of course one-on-one sitter who is walking with her. We will also try to provide more detailed foods and drinks that she takes. She has improved her oral intake - such as - already finished 1 large bottled water today, had orange juice today, vanilla pudding, crackers, yogurt. Discussed to have some cereal next (as she prefers packaged foods) 10/10 - Contacted to [facility] fax all the notes, and test results to [facility] for review QTC prolonged on admission Will avoid QT prolong medication Re-checked EKG (10/05) - normal ECG, QT shortened, normal sinus rhythm 10/08 - checked tele - NSR no arrhythmias - downgrade from tele 10/09 re-checked ECG (as per [facility] request) - normal ECG, NSR Abnormal UA on admission, poor sample UA re-checked - normal, not c/w UTI DVT px SCD/ pt ambulatory Code status Full code Admission and Anticipated Discharge Date Admission Date: October 03, 2022 Subjective Patient seen in follow up of dehydration, paranoia Sitting up in bed in no acute distress, 1:1 sitter present Reports having small BM today Denies any chest pain, palpitation, dizziness. She is breathing comfortably on RA on my exam. She is also ambulating in hallway without any difficulty several times a day, also now while I'm watching her. Last evening she ate a lot of crackers (per 1:1 sitter) and also cherios. Pt says she felt gassy and bloated after eating so much. She keeps drinking her bottled water - finished a large bottle today already. Had some juice, pudding, yogurt but says not too much of those. Will try peanut butter crackers next. She is concerned that [facility] won't let her have bottled water. Pre-packaged food encouraged Discussed with RN. Psychiatry consulted and following - they contacted [facility] and provided list of things that [facility] would like re-checked. Blood work and EKG were some of those requests. Therefore EKG was reordered again. They are concerned about her ambulating - patient has been ambulating without any difficulty, this has been observed by me, psychiatry provider, patient's nurse and of course one-on-one sitter who is walking with her. We will also try to provide more detailed foods and drinks that she takes. CM contacted and faxed notes, ECGs, and blood work results this AM. Review of Systems Review of Systems: All systems reviewed & are unremarkable except as noted in Subjective Physical Exam Physical Exam: General- No acute distress Head- at raumatic Eyes- PER RL, EOMI, ENT- elsy pharynx clear Neck - supple, no JVD L ungs- clear to aus cultation Heart- r egular rhythm; no murmur Abdomen- no rmal bowel sounds, soft Extremities- moves extremities Neuro- alert, sade ented x 3; PERRL, EOMI; no facial pa lsy; no dysarthria , moves extremitie s Skin- warm & dry Results & Data Results & Data Vital Signs (Past 12 Hours) Vital Signs Temp Pulse Resp BP Pulse Ox O2 Del Method FiO2 10/10/22 07:32 36.4 C L 81 16 96/52 L 100 Room Air 10/10/22 07:28 97 H 12 98 Room Air 21 10/10/22 04:00 36.6 C 69 18 100/63 98 Room Air 10/09/22 22:54 36.6 C 65 20 95/62 L 97 Room Air Laboratory Results 10/10/22 Range/Units 05:56 Sodium 140 (136-145) mmol/L Potassium 3.6 (3.5-5.1) mmol/L Chloride 108 H (98-107) mmol/L Carbon Dioxide 26 (21-32) mmol/L Anion Gap 6 (3-11) BUN 3 L (6-23) mg/dl Creatinine 0.43 L (0.6-1.2) mg/dl Est Cr Clr Drug Dosing 150.2 ml/min Est GFR ( Amer) 146.4 ml/min Est GFR (Non-Af Amer) 126.3 ml/min BUN/Creatinine Ratio 7.0 L (10-20) Glucose 82 (70-99(Fasting)) mg/dl Calcium 8.2 L (8.6-10.3) mg/dl Medications Administered Current Inpatient Medications Acetaminophen (Acetaminophen 325 Mg Tab) 650 mg PO Q6 PRN PRN Reason: Pain Stop: 11/02/22 19:09 Last Admin: 10/07/22 04:40 Dose: 650 mg Albuterol (Albuterol Hfa 8 Gm Inhaler) 2 puffs INH QIDR MARCIO Stop: 11/02/22 19:09 Last Admin: 10/10/22 07:26 Dose: 2 puffs Albuterol (Albuterol Hfa 8 Gm Inhaler) 2 puffs INH Q4 PRN PRN Reason: Shortness Of Breath Stop: 11/04/22 12:05 Buspirone HCl (Buspirone 5 Mg Tab) 5 mg PO BID [facility] Stop: 11/02/22 20:59 Last Admin: 10/10/22 08:21 Dose: 5 mg Escitalopram Oxalate (Escitalopram Oxalate 10 Mg Tab) 5 mg PO DAILY [facility] Stop: 11/03/22 08:59 Last Admin: 10/10/22 08:20 Dose: 5 mg Famotidine (Famotidine 20 Mg Tab) 20 mg PO BID [facility] Stop: 11/02/22 20:59 Last Admin: 10/10/22 08:21 Dose: 20 mg Hydroxyzine HCl (Hydroxyzine Hcl 25 Mg Tab) 25 mg PO BID PRN PRN Reason: Abdominal Discomfort Stop: 11/02/22 19:09 Potassium Chloride/Dextrose/Sod Cl (D5w And 1/2nss + 20meq Kcl) 20 meq in 1,000 mls @ 80 mls/hr IV .[id number] [facility]; Protocol Stop: 11/06/22 19:59 Last Infusion: 10/09/22 22:35 Dose: Infused Magnesium Oxide (Magnesium Oxide 400 Mg Tab) [facility] Stop: 11/07/22 15:29 Last Admin: 10/10/22 08:21 Dose: 400 mg Montelukast Sodium (Montelukast Sodium 10 Mg Tablet) 10 mg PO [facility] Stop: 11/02/22 20:59 Last Admin: 10/09/22 21:00 Dose: 10 mg Multivitamins/Minerals (Cerovite Adv Formula Tab) [facility] Stop: 11/08/22 14:14 Last Admin: 10/10/22 08:22 Dose: Not Given Sennosides (Senna 8.6 Mg Tab) 8.6 mg PO DAILY PRN PRN Reason: constipation Stop: 11/06/22 13:59 Simethicone (Simethicone 80 Mg Chew) 80 mg PO TID PRN PRN Reason: Gas or Constipation Stop: 11/04/22 12:20 Last Admin: 10/10/22 08:18 Dose: 80 mg Thiothixene (Thiothixene 1 Mg Cap) 2 mg PO BID [facility] Stop: 11/08/22 20:59 Last Admin: 10/10/22 08:20 Dose: 1 mg Trazodone HCl (Trazodone Hcl 50 Mg Tab) 50 mg PO [facility] Stop: 11/02/22 20:59 Last Admin: 10/09/22 21:32 Dose: Not Given Umeclidinium [place] (Umeclidinium [place] 62.5mcg/Blister 7 Puffs/Inhaler) 1 puffs INH DAILY [facility] Stop: 11/03/22 08:59 Last Admin: 10/10/22 08:22 Dose: 1 puffs
[2022-10-10] MEDS: MONTELUKAST SODIUM 10 MG TABLET PO SCH (21:23)
[2022-10-10] MEDS: traZODone HCL 50 MG TAB PO SCH (21:24)
[2022-10-11] MEDS: ALBUTEROL HFA 8 GM INHALER INH SCH ×3 (07:00→15:04)
[2022-10-11 07:17] LABS: Calcium 8.1 mg/dl (8.6-10.3); Creatinine Clr Calc Pharmacy 129.2 ml/min; Est GFR (African American) 139.3 ml/min; Est GFR (Non-African American) 120.2 ml/min; Potassium 3.3 mmol/L (3.5-5.1)
[2022-10-11] MEDS: FAMOTIDINE 20 MG TAB PO SCH (09:03)
[2022-10-11] MEDS: ESCITALOPRAM OXALATE 10 MG TAB PO SCH (09:04)
[2022-10-11] MEDS: CEROVITE ADV FORMULA TAB PO SCH (09:04)
[2022-10-11] MEDS: THIOTHIXENE 1 MG CAP PO SCH (09:04)
[2022-10-11] MEDS: busPIRone 5 MG TAB PO SCH (09:04)
[2022-10-11] MEDS: UMECLIDINIUM BROMIDE 62.5MCG/BLISTER 7 PUFFS/INHALER INH SCH (09:05)
[2022-10-11] MEDS ORDERED: POTASSIUM CHLORIDE CRTAB 20 MEQ TABCR PO STA (10:03)
--- NOTE | 2022-10-11 10:06 | Hospitalist Progress Note ---
Date of Service October 11, 2022 Assessment & Plan (1) Starvation ketoacidosis: (2) Dehydration: (3) Hypokalemia: Plan: This is a 41 y/o female with a PMH of PCOS, asthma, IBS, depression, anxiety, and recent paranoia who presented to the ED from [place] for the third visit this month with dehydration and electrolyte abnormalities related to refusal to eat or drink water due to underlying paranoia that someone is trying to poison her ([facility] staff, her family). Per outpatient records, hx of anxiety and depression but no documentation of prior psychosis until recent symptoms, which seemed to start after COVID in May.Per sign out, pt is currently at [place] on a 303. Mostly due to poor oral intake and starvation Potassium 2.9 on admission K replace and monitor IVF provided Electrolytes now normal Continue to encourage PO intake if not eating normally, may need oral potassium supplement, also started multivitamin Pre-packaged food encouraged (d/t her delusions). She drinks bottled water, cranberry juice, orange juice.. Eats yogurt, pudding, jellos, crackers, cereal,.. (4) Delusional disorder, somatic type: (5) Paranoia: Plan: Denies any suicidal thought Continue 1 to 1 sitter Psychiatry on board recommended a trial of thiothixene 1 mg PO BID - pt is tolerating this med well Continued escitalopram 5 mg PO daily -> increased to 10 mg daily and continue buspirone 5 mg PO BID as per psych Continue monitor closely Psychiatry consulted and following - they contacted [facility] and provided list of things that [facility] would like re-checked. Blood work and EKG were some of those requests. Therefore EKG was reordered again. They are concerned about her ambulating - patient has been ambulating without any difficulty, this has been observed by me, psychiatry provider, patient's nurse and of course one-on-one sitter who is walking with her. We will also try to provide more detailed foods and drinks that she takes. She has improved her oral intake - such as - already finished 1 large bottled water today, had orange juice today, vanilla pudding, crackers, yogurt. Discussed to have some cereal next (as she prefers packaged foods) 10/11 I was contacted by psychiatry - that pt is accepted back to the [facility] QTC prolonged on admission Will avoid QT prolong medication Re-checked EKG (10/05) - normal ECG, QT shortened, normal sinus rhythm 10/08 - checked tele - NSR no arrhythmias - downgrade from tele 10/09 re-checked ECG (as per [facility] request) - normal ECG, NSR Abnormal UA on admission, poor sample UA re-checked - normal, not c/w UTI DVT px SCD/ pt ambulatory Code status Full code Admission and Anticipated Discharge Date Admission Date: October 03, 2022 Subjective Patient seen in follow up of dehydration, paranoia Sitting up in bed in no acute distress, 1:1 sitter present Denies any chest pain, palpitation, dizziness. She is breathing comfortably on RA on my exam. She is also ambulating in hallway without any difficulty several times a day. She says she preferes regular cheerios, crackers, saltines. Continues to drink bottled water. Has some cranberry juice, pudding, yogurt. Pre-packaged food encouraged Psychiatry consulted and following -I was contacted by psychiatry attending, that patient is accepted back to the [facility]. Review of Systems Review of Systems: All systems reviewed & are unremarkable except as noted in Subjective Physical Exam Physical Exam: General- No acute distress Head- at raumatic Eyes- PER RL, EOMI, ENT- elsy pharynx clear Neck - supple, no JVD L ungs- clear to aus cultation Heart- r egular rhythm; no murmur Abdomen- no rmal bowel sounds, soft Extremities- moves extremities Neuro- alert, sade ented x 3; PERRL, EOMI; no facial pa lsy; no dysarthria , moves extremitie s Skin- warm & dry Results & Data Results & Data Vital Signs (Past 12 Hours) Vital Signs Temp Pulse Resp BP Pulse Ox O2 Del Method 10/11/22 07:31 36.8 C 69 18 90/60 L 99 Room Air 10/11/22 07:00 68 14 96 Room Air 10/10/22 23:02 36.5 C 69 20 94/62 L 98 Room Air Laboratory Results 10/11/22 Range/Units 05:34 Sodium 140 (136-145) mmol/L Potassium 3.3 L (3.5-5.1) mmol/L Chloride 107 (98-107) mmol/L Carbon Dioxide 27 (21-32) mmol/L Anion Gap 6 (3-11) BUN 4 L (6-23) mg/dl Creatinine 0.50 L (0.6-1.2) mg/dl Est Cr Clr Drug Dosing 129.2 ml/min Est GFR ( Amer) 139.3 ml/min Est GFR (Non-Af Amer) 120.2 ml/min BUN/Creatinine Ratio 8.0 L (10-20) Glucose 73 (70-99(Fasting)) mg/dl Calcium 8.1 L (8.6-10.3) mg/dl Medications Administered Current Inpatient Medications Acetaminophen (Acetaminophen 325 Mg Tab) 650 mg PO Q6 PRN PRN Reason: Pain Stop: 11/02/22 19:09 Last Admin: 10/07/22 04:40 Dose: 650 mg Albuterol (Albuterol Hfa 8 Gm Inhaler) 2 puffs INH QIDR [facility] Stop: 11/02/22 19:09 Last Admin: 10/11/22 07:00 Dose: 2 puffs Albuterol (Albuterol Hfa 8 Gm Inhaler) 2 puffs INH Q4 PRN PRN Reason: Shortness Of Breath Stop: 11/04/22 12:05 Buspirone HCl (Buspirone 5 Mg Tab) 5 mg PO BID [facility] Stop: 11/02/22 20:59 Last Admin: 10/11/22 09:04 Dose: 5 mg Escitalopram Oxalate (Escitalopram Oxalate 10 Mg Tab) 5 mg PO DAILY [facility] Stop: 11/03/22 08:59 Last Admin: 10/11/22 09:04 Dose: 5 mg Famotidine (Famotidine 20 Mg Tab) 20 mg PO BID [facility] Stop: 11/02/22 20:59 Last Admin: 10/11/22 09:03 Dose: 20 mg Hydroxyzine HCl (Hydroxyzine Hcl 25 Mg Tab) 25 mg PO BID PRN PRN Reason: Abdominal Discomfort Stop: 11/02/22 19:09 Potassium Chloride/Dextrose/Sod Cl (D5w And 1/2nss + 20meq Kcl) 20 meq in 1,000 mls @ 80 mls/hr IV .[id number] [facility]; Protocol Stop: 11/06/22 19:59 Last Infusion: 10/09/22 22:35 Dose: Infused Magnesium Oxide (Magnesium Oxide 400 Mg Tab) 400 mg PO QAM [facility] Stop: 11/07/22 15:29 Last Admin: 10/10/22 08:21 Dose: 400 mg Montelukast Sodium (Montelukast Sodium 10 Mg Tablet) 10 mg PO HS [facility] Stop: 11/02/22 20:59 Last Admin: 10/10/22 21:23 Dose: 10 mg Multivitamins/Minerals (Cerovite Adv Formula Tab) 1 tab PO QAM [facility] Stop: 11/08/22 14:14 Last Admin: 10/11/22 09:04 Dose: 1 tab Potassium Chloride (Potassium Chloride Crtab 20 Meq Tabcr) 20 meq PO NOW STA Stop: 10/11/22 10:04 Sennosides (Senna 8.6 Mg Tab) 8.6 mg PO DAILY PRN PRN Reason: constipation Stop: 11/06/22 13:59 Simethicone (Simethicone 80 Mg Chew) 80 mg PO TID PRN PRN Reason: Gas or Constipation Stop: 11/04/22 12:20 Last Admin: 10/10/22 16:55 Dose: 80 mg Thiothixene (Thiothixene 1 Mg Cap) 2 mg PO BID [facility] Stop: 11/08/22 20:59 Last Admin: 10/11/22 09:04 Dose: 1 mg Trazodone HCl (Trazodone Hcl 50 Mg Tab) 50 mg PO HS [facility] Stop: 11/02/22 20:59 Last Admin: 10/10/22 21:24 Dose: Not Given Umeclidinium [place] (Umeclidinium [place] 62.5mcg/Blister 7 Puffs/Inhaler) 1 puffs INH DAILY [facility] Stop: 11/03/22 08:59 Last Admin: 10/11/22 09:05 Dose: 1 puffs
--- NOTE | 2022-10-11 11:44 | Psychiatric Progress Note ---
Date of Service October 11, 2022 Impression / Recommendations Impression 41 yo woman with ongoing somatic delusions resulting in poor po intake and medical admission for dehydration. She is now taking her po antipsychotic medication which is going to be the most likely to help with lessening the intensity of her delusions and paranoia. She is now medically stable and will ideally return to [facility] for ongoing psychiatric care when they agree to re- accept her. While there she had been on a 303 and anticipate that they would re- accept her on a 302 commitment and then move to 303 commitment with medication over objection, if she starts to decline antipsychotic medication once back at their facility, to allow for treatment of delusions leading to lack of po intake. Without resumption of inpatient psychiatric treatment she is not likely to make any significant progress as symptoms are driven by her somatic delusions. 10/11/2022: Continues to tolerate Navane but only agrees to 1mg dose. Eating consistently small packaged items, drinking bottled water and some juice. Involuntary commitment paperwork completed for her to return to the [facility] for psychiatric treatment. Encourage consideration for medication over objection once she returns for psychiatric treatment if she starts to refuse po intake again. (1) Delusional disorder, somatic type: Plan * continue trial of thothixene 1 mg PO BID (she declines higher dose of 2mg BID) * continue escitalopram 5 mg PO daily (consider dose titration once back at [facility]) * continue buspirone 5 mg PO BID * On commitment in place * Plan for discharge to [facility] via secure transport this afternoon Interval History Identifying Information Mercedes Lott is a 41-year-old F with a history of somatic delusional disorder, admitted to the ED on 10/03/2022 for dehydration from the [facility] where she had been on a 303 commitment. Consult is by the hospitalist service for treatment recommendations. Chief Complaint "I'm not that good". Review of Systems Notes sleeping, eating small snacks throughout the day Meal Information Percent Meal Consumed - Breakfast: 25 Subjective Subjective Patient was seen & assessed and interval progress reviewed. Mercedes has been eating and drinking and walking. Taking Navane but only agreeing to the 1mg dose. Remains perseverative about having gas and not wanting to eat much due to this. She agreed to eat cereal and did so in front of me with some encouragement. Drinking water, had consumed about 3/4 water bottle. Worried today about diarrhea and loose stools. Accepted to return to the [facility] this evening. Refusing to return due to concern she will there as she fears he'll continue to have diarrhea and stating that she dislikes their water. Discussed drinking juice or other canned or packaged liquids there instead. Physical Exam Psychiatric Orientation: alert and oriented x 3 Apperance: appropriately dressed and appropriately groomed Eye Contact: good eye contact Motor Behavior: no abnormal motor movements Speech: normal rate/rhythm/volume of speech Affect: + anxious affect Mood: + anxious mood Thought Process: + circumstantial thought process, + looseness of associations and + perseveration Thought Content: + paranoid, + cognitive distortions and + delusions Suicidal Thoughts: denies suicidal thoughts Homicidal Thoughts: denies homicidal thoughts Hallucinations: no auditory hallucinations and no visual hallucinations Cognition: recent memory grossly intact, remote memory grossly intact, attention grossly intact and language grossly intact Estimated Intelligence: average estimated intelligence Insight: + severely impaired insight Judgment: + impaired judgement Vital Signs (Past 24 Hours) Last Vital Signs Temp 36.8 C 10/11/22 07:31 Pulse 71 10/11/22 11:01 Resp 16 10/11/22 11:01 BP 90/60 L 10/11/22 07:31 Pulse Ox 98 10/11/22 11:01 O2 Del Method Room Air 10/11/22 11:01 FiO2 21 10/10/22 11:09 Results & Data ([facility]) Laboratory Results Laboratory Results - last 24 hr 10/11/22 05:34 Sodium 140 Potassium 3.3 L Chloride 107 Carbon Dioxide 27 Anion Gap 6 BUN 4 L Creatinine 0.50 L Est Cr Clr Drug Dosing 129.2 Est GFR ( Amer) 139.3 Est GFR (Non-Af Amer) 120.2 BUN/Creatinine Ratio 8.0 L Glucose 73 Calcium 8.1 L Current Inpatient Medications Current Inpatient Medications: Current Inpatient Medications Acetaminophen (Acetaminophen 325 Mg Tab) 650 mg PO Q6 PRN PRN Reason: Pain Stop: 11/02/22 19:09 Last Admin: 10/07/22 04:40 Dose: 650 mg Albuterol (Albuterol Hfa 8 Gm Inhaler) 2 puffs INH QIDR MARCIO Stop: 11/02/22 19:09 Last Admin: 10/11/22 11:01 Dose: 2 puffs Albuterol (Albuterol Hfa 8 Gm Inhaler) 2 puffs INH Q4 PRN PRN Reason: Shortness Of Breath Stop: 11/04/22 12:05 Buspirone HCl (Buspirone 5 Mg Tab) 5 mg PO BID [facility] Stop: 11/02/22 20:59 Last Admin: 10/11/22 09:04 Dose: 5 mg Escitalopram Oxalate (Escitalopram Oxalate 10 Mg Tab) 5 mg PO DAILY [facility] Stop: 11/03/22 08:59 Last Admin: 10/11/22 09:04 Dose: 5 mg Famotidine (Famotidine 20 Mg Tab) 20 mg PO BID [facility] Stop: 11/02/22 20:59 Last Admin: 10/11/22 09:03 Dose: 20 mg Hydroxyzine HCl (Hydroxyzine Hcl 25 Mg Tab) 25 mg PO BID PRN PRN Reason: Abdominal Discomfort Stop: 11/02/22 19:09 Potassium Chloride/Dextrose/Sod Cl (D5w And 1/2nss + 20meq Kcl) 20 meq in 1,000 mls @ 80 mls/hr IV .[id number] [facility]; Protocol Stop: 11/06/22 19:59 Last Infusion: 10/09/22 22:35 Dose: Infused Magnesium Oxide (Magnesium Oxide 400 Mg Tab) 400 mg PO QAM [facility] Stop: 11/07/22 15:29 Last Admin: 10/10/22 08:21 Dose: 400 mg Montelukast Sodium (Montelukast Sodium 10 Mg Tablet) 10 mg PO [facility] Stop: 11/02/22 20:59 Last Admin: 10/10/22 21:23 Dose: 10 mg Multivitamins/Minerals (Cerovite Adv Formula Tab) 1 tab PO QAM [facility] Stop: 11/08/22 14:14 Last Admin: 10/11/22 09:04 Dose: 1 tab Sennosides (Senna 8.6 Mg Tab) 8.6 mg PO DAILY PRN PRN Reason: constipation Stop: 11/06/22 13:59 Simethicone (Simethicone 80 Mg Chew) 80 mg PO TID PRN PRN Reason: Gas or Constipation Stop: 11/04/22 12:20 Last Admin: 10/10/22 16:55 Dose: 80 mg Thiothixene (Thiothixene 1 Mg Cap) 2 mg PO BID [facility] Stop: 11/08/22 20:59 Last Admin: 10/11/22 09:04 Dose: 1 mg Trazodone HCl (Trazodone Hcl 50 Mg Tab) 50 mg PO HS [facility] Stop: 11/02/22 20:59 Last Admin: 10/10/22 21:24 Dose: Not Given Umeclidinium Bethany (Umeclidinium Bethany 62.5mcg/Blister 7 Puffs/Inhaler) 1 puffs INH DAILY [facility] Stop: 11/03/22 08:59 Last Admin: 10/11/22 09:05 Dose: 1 puffs
--- NOTE | 2022-10-11 13:38 | Discharge Summary ---
Date of Service October 11, 2022 Admission HPI Per Admitting Provider This is a 41 y/o female with a PMH of asthma, PCOS, migraines, anxiety, depression, and recent paranoia who presents to the ED today from [facility], where she is currently inpatient due to acute paranoia, for dehydration. History obtained from the patient but also from her medical records from [facility] and from [facility] as it is unclear how reliable pt is as a historian. Per the notes, she presented to the ED on 09/05/22, brought by her aunt, with paranoia and abdominal pain. Per patient, she has been having ongoing issues with lower abdominal pain and getting short of breath with eating for the last few months. Symptoms seemed to start after having COVID in May when she became obsessively concerned about her breathing and feeling short of breath. She was evaluated multiple times and ultimately diagnosed with mild asthma. In July, she became paranoid that she was being poisoned through her food or drinks, initially with COVID contaminants but more recently with rat poison. Pt feels like she will get flushed, short of breath, and sometimes will have palpitations when she eats, particularly solid foods. Initially, she reports that she was tolerating liquids, including Ensure, but that her symptoms worsened which was why her aunt brought her to the ER, which resulted in the admission to [facility]. Now, she is concerned that the staff at [facility] are trying to poison her so she has been refusing to eat for the last several days.She was admitted to [facility] from 09/19-09/21/22 for starvation ketoacidosis with electrolyte abnormalities including hypernatremia and hypokalemia. These were replaced and she was evaluated by psychiatry here - Effexor was discontinued and sublingual Risperdal was started. She was discharged back to [facility] on 09/21/22. On 09/27/22, she was seen again in the ED here for nausea and chest pain. Workup in the ED was unremarkable so she was discharged back to [facility] again. The patient came back to the ED today due to ongoing issues with refusing to eat or drink and concern for dehydration. She reports that any time she eats anything from [facility], she feels bloated, which she thinks is related to something they're putting in her food, so she is refusing to take much by mouth. Admission Exam Per Admitting Provider On examination Very anxious Hemodynamically stable without tachycardia Chest-clear to auscultate bilaterally Heart-S1, [id number] Abdomen-soft, not distended, mildly tender in the epigastrium and bowel sound present Extremities-trace edema bilaterally [employer]-alert, awake and oriented x3. Moving all limbs equally and no focal sensory or motor deficit appreciated Principal Diagnosis Dehydration, hypokalemia, due to very poor oral intake secondary to paranoia/delusions Discharge Exam General- No acute distress Head- atraumatic Eyes- PERRL, EOMI, Neck- supple Lungs- clear to auscultation Heart- regular rhythm; no murmur Abdomen- normal bowel sounds, soft Extremities-moves extremities Neuro- alert, oriented x 3; PERRL, EOMI; no facial palsy; no dysarthria, moves extremities Skin- warm & dry Discharge Data Allergies Allergy/AdvReac Type Severity Reaction Status Date / Time bee venom protein (honey bee) Allergy Severe SEVERE Verified 09/19/22 15:50 SWELLING AT [place] egg Allergy Severe Anaphylaxis Verified 09/19/22 15:50 methylprednisolone Allergy Unknown HIVES Verified 09/19/22 15:50 WHILE TAKING MEDROL DOSE PACK & ?? INHALER Consultations 10/03/22 15:22 ED Decision to Admit Stat 10/03/22 19:10 Consult Psychiatry Routine Ordered Studies 10/03/22 11:23 CT abd pelvis IV con only Stat FINDINGS: The lung bases are clear. Focal fatty infiltration of the left hepatic lobe. The spleen, gallbladder, pancreas, and adrenal glands are within normal limits. There are a few subcentimeter hypodense foci within the right kidney, too small to characterize however favoring probable cysts. No hydronephrosis. Mild to moderate colonic fecal retention. The appendix is air-filled and appears noninflamed. No bowel wall thickening or obstruction. The pelvic organs are unremarkable. Trace free pelvic fluid is likely physiologic. Small to moderate posterior disc osteophyte complex formations at the L4-L5 and L5-S1 levels. No suspicious lytic or blastic osseous lesions. IMPRESSION: 1. No acute intra-abdominal or intrapelvic abnormality. 2. No bowel obstruction or bowel wall thickening. 3. Normal appendix. 4. Trace likely physiologic free pelvic fluid. Hospital Course (1) Starvation ketoacidosis: (2) Dehydration: (3) Hypokalemia: This is a 41 y/o female with a PMH of PCOS, asthma, IBS, depression, anxiety, and recent paranoia who presented to the ED from [facility] for the third visit this month with dehydration and electrolyte abnormalities related to refusal to eat or drink water due to underlying paranoia that someone is trying to poison her ([facility] staff, her family). Per outpatient records, hx of anxiety and depression but no documentation of prior psychosis until recent symptoms, which seemed to start after COVID in May.Per sign out, pt is currently at [facility] on a 303. Mostly due to poor oral intake and starvation Potassium 2.9 on admission K replace and monitor IVF provided Electrolytes now normal Continue to encourage PO intake if not eating normally, may need oral potassium supplement, also started multivitamin Pre-packaged food encouraged (d/t her delusions). She drinks bottled water, cranberry juice, orange juice.. Eats yogurt, pudding, jellos, crackers, cereal,.. (4) Delusional disorder, somatic type: (5) Paranoia: Denies any suicidal thought Continue 1 to 1 sitter Psychiatry on board recommended a trial of thiothixene 1 mg PO BID - pt is tolerating this med well Continued escitalopram 5 mg PO daily -> increased to 10 mg daily and continue buspirone 5 mg PO BID as per psych Continue monitor closely Psychiatry consulted and following - they contacted [facility] and provided list of things that [facility] would like re-checked. Blood work and EKG were some of those requests. Therefore EKG was reordered again. They are concerned about her ambulating - patient has been ambulating without any difficulty, this has been observed by me, psychiatry provider, patient's nurse and of course one-on-one sitter who is walking with her. We will also try to provide more detailed foods and drinks that she takes. She has improved her oral intake - drinks bottled water, orange, cranberry juice, vanilla pudding, crackers, yogurt, cereal.. prefers packaged foods d/t her delusions 10/11 I was contacted by psychiatry - that pt is accepted back to the [facility] QTC prolonged on admission Will avoid QT prolong medication Re-checked EKG (10/05) - normal ECG, QT shortened, normal sinus rhythm 10/08 - checked tele - NSR no arrhythmias - downgrade from tele 10/09 re-checked ECG (as per [facility] request) - normal ECG, NSR Abnormal UA on admission, poor sample UA re-checked - normal, not c/w UTI Total Time Total Time Spent Total Time Spent (In Minutes): 40 Discharge Plan Discharge Items Patient Disposition: Transfer Behavioral Health Fac Reason For Visit: DEHYDRATION, HYPOKALEMIA Discharge Diagnosis: Dehydration, hypokalemia, due to very poor oral intake secondary to paranoia/delusions Activity: Per Instructions section Non-emergency contact: Primary Care Provider and Psychiatrist Call non-emergency contact if: you have any medication questions and your symptoms worsen Follow-up/Referrals: Yaa Cueto MD [Primary Care Provider] - Diet: Regular Addtl Attending Provider Instructions: Patient admitted from [facility], secondary to Dehydration, hypokalemia, due to very poor oral intake secondary to paranoia/delusions. Patient received IV fluids and electrolyte supplements. Patient was also seen by psychiatry. Patient is not taking Risperidal, and therefore it was discontinued. She was started on a new medication, Thiothixene 1mg BID. Escitalopram was increased to 10 mg daily. She prefers packaged foods, bottled water. Recommend to continue with bottled water and packaged foods, encourage p.o. intake. Recommend potassium supplement for next couple of days, and recheck her blood work/BMP in the next 3 to 5 days. Hopefully as her p.o. intake increases, patient will not require any more supplement. Simethicone as needed for bloating sensation. Pending Studies at Discharge: No Stand-Alone Forms: My [facility] Skilled Items DNR: No Lines: None Urinary Catheter: No Medications and DC Order Prescriptions: New thiothixene 1 mg Capsule 1 mg PO BID Qty: 20 0RF simethicone [Gas Relief (simethicone)] 80 mg Tablet,Chewable 80 mg PO TID PRN (Reason: abdominal distention) Qty: 10 0RF Cerovite Senior 0.4 mg-300 mcg- 250 mcg Tablet 1 tab PO QAM Qty: 30 0RF potassium chloride 10 mEq capsule, extended release 10 meq PO DAILY Qty: 7 0RF Continued buspirone 5 mg tablet 5 mg PO BID sennosides [senna] 8.6 mg Tablet 8.6 mg PO HS PRN (Reason: Constipation) trazodone 50 mg Tablet 50 mg PO HS Spiriva Respimat 1.25 mcg/actuation mist 1.25 mcg INHALATION DAILY epinephrine 0.3 mg/0.3 mL auto-injector 0.3 ml IM BID MDD 2 PRN (Reason: severe food egg allergy) acetaminophen [Tylenol] 325 mg Tablet 650 mg PO Q6 PRN (Reason: Pain) albuterol sulfate 90 mcg/actuation HFA aerosol inhaler 2 puff INHALATION QID montelukast 10 mg tablet 10 mg PO HS Ensure Liquid 1 ea PO TID famotidine 20 mg Tablet 20 mg PO BID hydroxyzine pamoate 25 mg Capsule 25 mg PO BID PRN (Reason: Abdominal Discomfort) zinc oxide 20 % Ointment 1 applic TOPICAL BID Rx Instructions: APPLY TO SACRUM Changed escitalopram oxalate 5 mg Tablet 10 mg PO DAILY Qty: 30 0RF Discontinued risperidone [Risperdal] 3 mg Tablet 3 mg PO BID Discharge Orders: Discharge Order (Routine); Ordered 10/11/22 Ordered By: Pavan Thomas Admission Data Admit Date/Time: 10/03/22 16:12 Attending Provider: Pavan Thomas Admit Provider: Wily Perez Primary Care Provider: Yaa Cueto Other Providers: Rai Murillo ; Wily Perez ; Ena Ugarte ; Neetu Navarro ; Nico Boswell
[2022-10-12] MEDS ORDERED: ESCITALOPRAM OXALATE 10 MG TAB PO SCH (09:00)
== END 2022-10-11 17:33 | DRG 949 ==
LOC: ED 11:09 → SUATTDRO 16:12 → EDINP 16:12 → 2W 10-04 18:30